=== PATIENT | female | born 1960 | race Caucasian/White ===

== ENCOUNTER 2020-06-01 10:28 | Inpatient (IN) | payer BC ==
[2020-06-01] MEDS ORDERED: SODIUM CHLORIDE 0.9% 500 ML 500 ML IV STA (10:59)
--- NOTE | 2020-06-01 11:10 | ED ---
General Adult HPI - General Source: patient, RN notes reviewed, old records reviewed Limitations: no limitations <Asha Whartonily - Last Filed: 06/01/20 13:54> <Yaquelin Maldonado - Last Filed: 06/03/20 15:01> - General Chief complaint: Upper Respiratory Infection Stated complaint: SOB Time Seen by Provider: 06/01/20 10:42 - History of Present Illness Initial comments: Patient [id number] female with history of smoking quit one year ago presents with months of progressive dyspnea on exertion. Patient reports that she has pain with coughing. She was reviewed by her PCP and encouraged her to come to the ER yesterday but she was not able to make it yesterday. Patient states that she has noticed progressive dyspnea worsening. She is complaining of some epigastric and upper abdominal pains as well. She reports that her cough is productive. She has history of COPD, and sees Dr. Low. (Christine Wharton) - Related Data Home Medications Medication Instructions Recorded Confirmed Albuterol Inhaler [Ventolin Hfa 2 puff INHALATION RT-Q4H PRN 06/01/20 06/01/20 Inhaler] Ipratropium-Albuterol Nebulize 3 ml INHALATION RT-QID 06/01/20 06/01/20 [Duoneb 0.5 mg-3 mg/3 ml Soln] Previous Rx's Medication Instructions Recorded Cefuroxime Axetil [Ceftin] 500 mg PO BID 7 Days #14 tab 06/02/20 predniSONE 10 mg PO DIRECTED 12 Days #30 06/02/20 tab Allergies Allergy/AdvReac Type Severity Reaction Status Date / Time No Known Allergies Allergy Verified 06/01/20 12:56 Review of Systems ROS Other: All systems not noted in ROS Statement are negative. <Christine Wharton - Last Filed: 06/01/20 13:54> ROS Other: All systems not noted in ROS Statement are negative. <Yaquelin Maldonado - Last Filed: 06/03/20 15:01> ROS Statement: Those systems with pertinent positive or pertinent negative responses have been documented in the HPI. Past Medical History Past Medical History: COPD Additional Past Medical History / Comment(s): sinus polyp History of Any Multi-Drug Resistant Organisms: None Reported Additional Past Surgical History / Comment(s): dermabrasion cheek, sinus polyp removal Past Anesthesia/Blood Transfusion Reactions: No Reported Reaction Past Psychological History: No Psychological Hx Reported Smoking Status: Former smoker Past Alcohol Use History: None Reported Past Drug Use History: None Reported <Christine Wharton - Last Filed: 06/01/20 13:54> General Exam Limitations: no limitations General appearance: alert, in no apparent distress Head exam: Present: atraumatic, normocephalic, normal inspection Eye exam: Present: normal appearance, PERRL, EOMI. Absent: scleral icterus, conjunctival injection, periorbital swelling ENT exam: Present: normal exam, mucous membranes moist Neck exam: Present: normal inspection. Absent: tenderness, meningismus, lymphadenopathy Respiratory exam: Present: wheezes, rhonchi, decreased breath sounds. Absent: normal lung sounds bilaterally, respiratory distress, rales, stridor Cardiovascular Exam: Present: regular rate, normal rhythm, normal heart sounds. Absent: systolic murmur, diastolic murmur, rubs, gallop, clicks GI/Abdominal exam: Present: soft, normal bowel sounds. Absent: distended, tenderness, guarding, rebound, rigid Extremities exam: Present: normal inspection, full ROM, normal capillary refill. Absent: tenderness, pedal edema, joint swelling, calf tenderness Back exam: Present: normal inspection Neurological exam: Present: alert, oriented X3, CN II-XII intact Psychiatric exam: Present: normal affect, normal mood Skin exam: Present: warm, dry, intact, normal color. Absent: rash <Christine Wharton - Last Filed: 06/01/20 13:54> - General Exam Comments Initial Comments: 59-year-old female. Alert and oriented. No distress. (Christine Wharton) Course <Christine Wharton - Last Filed: 06/01/20 13:54> Vital Signs 06/01/20 06/01/20 06/01/20 10:37 13:25 13:38 Temperature 98.3 F Pulse Rate 109 H 78 76 Respiratory 18 Rate Blood Pressure 143/79 O2 Sat by Pulse 88 L Oximetry 06/01/20 06/01/20 06/01/20 14:35 14:39 14:57 Temperature 99.0 F Pulse Rate 99 96 97 Respiratory 18 Rate Blood Pressure 129/81 O2 Sat by Pulse 94 L Oximetry - Reevaluation(s) Reevaluation #1: 06/01/20 13:57 Is reevaluated after a double DuoNeb treatment and oxygen was removed. She was satting 86% on room air, tripoding position. Patient was resumed on 3 L of oxygen. She will have Third breathing treatment (Christine Wharton) Medical Decision Making - Lab Data Result diagrams: 06/01/20 11:36 06/01/20 11:36 - Radiology Data Radiology results: report reviewed <Christine Wharton - Last Filed: 06/01/20 13:54> - Lab Data Result diagrams: 06/01/20 11:36 06/01/20 11:36 <Yaquelin Maldonado - Last Filed: 06/03/20 15:01> - Medical Decision Making This 59-year-old female history of COPD presents with progressive shortness of breath back pain with coughing for the past month. Patient's d-dimer and troponin are negative. EKG showed no acute changes. Patient chest x-ray was clear. She does have significant wheezing diminished lung sounds bilaterally. Patient was placed on supplement oxygen was low oxygen saturation 86-89% on room air. She was given 3 breathing treatments with some improvement however still is requiring supplement oxygen. Covid testing is negative. Patient was given Rocephin and Solu-Medrol for elevated white blood cell count for tracheal orchitis and COPD exacerbation. Patient will be admitted with consult to pulmonology. Discussed the case with Dr. Maldonado. (Christine Wharton) I was available for consultation in the emergency department. The history and physical exam were done by the midlevel provider. I was consulted for this patients care. I reviewed the case with the midlevel provider and based on their presentation of the patient, I agree with the assessment, medical decision making and plan of care as documented. Chart was dictated using [employer] dictation software. Attempts were made to correct any dictation errors however some typographical errors may persist. Patient was seen during a national state of emergency due to the Covid-19 pandemic. (Yaquelin Maldonado) - Lab Data Lab Results 06/01/20 06/01/20 06/01/20 Range/Units 11:36 11:36 11:36 WBC 15.9 H (3.8-10.6) k/uL RBC 5.41 H (3.80-5.40) m/uL Hgb 14.3 (11.4-16.0) gm/dL Hct 44.5 (34.0-46.0) % MCV 82.3 (80.0-100.0) fL MCH 26.3 (25.0-35.0) pg MCHC 32.0 (31.0-37.0) g/dL RDW 14.3 (11.5-15.5) % Plt Count 304 (150-450) k/uL MPV 7.0 Neutrophils % 85 % Lymphocytes % 10 % Monocytes % 4 % Eosinophils % 1 % Basophils % 0 % Neutrophils # 13.4 H (1.3-7.7) k/uL Lymphocytes # 1.6 (1.0-4.8) k/uL Monocytes # 0.6 (0-1.0) k/uL Eosinophils # 0.1 (0-0.7) k/uL Basophils # 0.0 (0-0.2) k/uL PT 9.7 (9.0-12.0) sec INR 0.9 (<1.2) APTT 20.9 L (22.0-30.0) sec D-Dimer 0.28 (<0.60) mg/L FEU Sodium 134 L (137-145) mmol/L Potassium 4.0 (3.5-5.1) mmol/L Chloride 97 L (98-107) mmol/L Carbon Dioxide 34 H (22-30) mmol/L Anion Gap 3 mmol/L BUN 17 (7-17) mg/dL Creatinine 0.52 (0.52-1.04) mg/dL Est GFR (CKD-EPI)AfAm >90 (>60 ml/min/1.73 sqM) Est GFR (CKD-EPI)NonAf >90 (>60 ml/min/1.73 sqM) Glucose 124 H (74-99) mg/dL Plasma Lactic Acid Ang (0.7-2.0) mmol/L Calcium 8.9 (8.4-10.2) mg/dL Magnesium 2.1 (1.6-2.3) mg/dL Total Bilirubin 0.4 (0.2-1.3) mg/dL AST 38 H (14-36) U/L ALT 59 H (4-34) U/L Alkaline Phosphatase 63 (38-126) U/L Troponin I (0.000-0.034) ng/mL NT-Pro-B Natriuret Pep pg/mL Total Protein 6.0 L (6.3-8.2) g/dL Albumin 3.7 (3.5-5.0) g/dL Procalcitonin (0.02-0.09) ng/mL Coronavirus (PCR) (Not Detectd) 06/01/20 06/01/20 06/01/20 Range/Units 11:36 11:36 11:36 WBC (3.8-10.6) k/uL RBC (3.80-5.40) m/uL Hgb (11.4-16.0) gm/dL Hct (34.0-46.0) % MCV (80.0-100.0) fL MCH (25.0-35.0) pg MCHC (31.0-37.0) g/dL RDW (11.5-15.5) % Plt Count (150-450) k/uL MPV Neutrophils % % Lymphocytes % % Monocytes % % Eosinophils % % Basophils % % Neutrophils # (1.3-7.7) k/uL Lymphocytes # (1.0-4.8) k/uL Monocytes # (0-1.0) k/uL Eosinophils # (0-0.7) k/uL Basophils # (0-0.2) k/uL PT (9.0-12.0) sec INR (<1.2) APTT (22.0-30.0) sec D-Dimer (<0.60) mg/L FEU Sodium (137-145) mmol/L Potassium (3.5-5.1) mmol/L Chloride (98-107) mmol/L Carbon Dioxide (22-30) mmol/L Anion Gap mmol/L BUN (7-17) mg/dL Creatinine (0.52-1.04) mg/dL Est GFR (CKD-EPI)AfAm (>60 ml/min/1.73 sqM) Est GFR (CKD-EPI)NonAf (>60 ml/min/1.73 sqM) Glucose (74-99) mg/dL Plasma Lactic Acid Ang 0.9 (0.7-2.0) mmol/L Calcium (8.4-10.2) mg/dL Magnesium (1.6-2.3) mg/dL Total Bilirubin (0.2-1.3) mg/dL AST (14-36) U/L ALT (4-34) U/L Alkaline Phosphatase (38-126) U/L Troponin I <0.012 (0.000-0.034) ng/mL NT-Pro-B Natriuret Pep 150 pg/mL Total Protein (6.3-8.2) g/dL Albumin (3.5-5.0) g/dL Procalcitonin (0.02-0.09) ng/mL Coronavirus (PCR) (Not Detectd) 06/01/20 06/01/20 Range/Units 11:36 11:36 WBC (3.8-10.6) k/uL RBC (3.80-5.40) m/uL Hgb (11.4-16.0) gm/dL Hct (34.0-46.0) % MCV (80.0-100.0) fL MCH (25.0-35.0) pg MCHC (31.0-37.0) g/dL RDW (11.5-15.5) % Plt Count (150-450) k/uL MPV Neutrophils % % Lymphocytes % % Monocytes % % Eosinophils % % Basophils % % Neutrophils # (1.3-7.7) k/uL Lymphocytes # (1.0-4.8) k/uL Monocytes # (0-1.0) k/uL Eosinophils # (0-0.7) k/uL Basophils # (0-0.2) k/uL PT (9.0-12.0) sec INR (<1.2) APTT (22.0-30.0) sec D-Dimer (<0.60) mg/L FEU Sodium (137-145) mmol/L Potassium (3.5-5.1) mmol/L Chloride (98-107) mmol/L Carbon Dioxide (22-30) mmol/L Anion Gap mmol/L BUN (7-17) mg/dL Creatinine (0.52-1.04) mg/dL Est GFR (CKD-EPI)AfAm (>60 ml/min/1.73 sqM) Est GFR (CKD-EPI)NonAf (>60 ml/min/1.73 sqM) Glucose (74-99) mg/dL Plasma Lactic Acid Ang (0.7-2.0) mmol/L Calcium (8.4-10.2) mg/dL Magnesium (1.6-2.3) mg/dL Total Bilirubin (0.2-1.3) mg/dL AST (14-36) U/L ALT (4-34) U/L Alkaline Phosphatase (38-126) U/L Troponin I (0.000-0.034) ng/mL NT-Pro-B Natriuret Pep pg/mL Total Protein (6.3-8.2) g/dL Albumin (3.5-5.0) g/dL Procalcitonin 0.03 (0.02-0.09) ng/mL Coronavirus (PCR) Not Detected (Not Detectd) 06/01/20 12:50 EKG shows normal sinus rhythm with possible left atrial enlargement. Incomplete right bundle branch block. Borderline EKG. Ventricular rate of 72 bpm. MA interval is most seconds. QRS duration is 96 ms. QT QTc is 386/422 ms. (Christine Juarez) - Radiology Data His x-rays negative for any acute cardio pulmonary disease. (Christine Wharton) Disposition Is patient prescribed a controlled substance at d/c from ED?: No Time of Disposition: 14:00 <Christine Wharton - Last Filed: 06/01/20 13:54> <Yaquelin Maldonado - Last Filed: 06/03/20 15:01> Clinical Impression: COPD exacerbation Disposition: ADMITTED IP TO THIS HOSP Condition: Good
[2020-06-01] MEDS: SODIUM CHLORIDE 0.9% 1,000 ML IV STA ×2 (11:39→14:48)
[2020-06-01 11:49] LABS: Basophils % (A) 0 %; Eosinophils # (A) 0.1 k/uL (0-0.7); Eosinophils % (A) 1 %; HCT 44.5 % (34.0-46.0); HGB 14.3 gm/dL (11.4-16.0); Lymphocytes # (A) 1.6 k/uL (1.0-4.8); Lymphocytes % (A) 10 %; MCH 26.3 pg (25.0-35.0); MCV 82.3 fL (80.0-100.0); Monocytes # (A) 0.6 k/uL (0-1.0); Monocytes % (A) 4 %; Neutrophils # (A) 13.4 k/uL (1.3-7.7); Neutrophils % (A) 85 %; Platelet Count 304 k/uL (150-450); RBC 5.41 m/uL (3.80-5.40); RDW 14.3 % (11.5-15.5); WBC 15.9 k/uL (3.8-10.6)
--- NOTE | 2020-06-01 11:56 | XR ---
EXAMINATION TYPE: XR chest 2V DATE OF EXAM: 06/01/2020 COMPARISON: 07/14/2018 HISTORY: Shortness of breath TECHNIQUE: Frontal and lateral views of the chest are obtained. FINDINGS: Scattered senescent parenchymal changes noted. Hyperinflation compatible with COPD. No evidence for infiltrate. No evidence for atelectasis. Heart size is stable. Granuloma left upper lobe is stable. Mediastinal structures are stable and grossly unremarkable. No evidence for hilar prominence. Degenerative changes dorsal spine. IMPRESSION: 1. No evidence for acute pulmonary disease.
[2020-06-01 12:12] LABS: ALT 59 U/L (4-34); AST 38 U/L (14-36); African American GFR (CKD) >90 (>60 ml/min/1.73 sqM); Albumin 3.7 g/dL (3.5-5.0); Alkaline Phosphatase 63 U/L (38-126); Anion Gap 3 mmol/L; Blood Urea Nitrogen 17 mg/dL (7-17); Calcium 8.9 mg/dL (8.4-10.2); Carbon Dioxide 34 mmol/L (22-30); Chloride 97 mmol/L (98-107); Glucose 124 mg/dL (74-99); Magnesium 2.1 mg/dL (1.6-2.3); Non-African American GFR(CKD) >90 (>60 ml/min/1.73 sqM); Sodium 134 mmol/L (137-145); Total Bilirubin 0.4 mg/dL (0.2-1.3)
[2020-06-01 12:13] LABS: D-Dimer 0.28 mg/L FEU (<0.60); INR 0.9 (<1.2); Partial Thromboplastin Time 20.9 sec (22.0-30.0); Prothrombin Time 9.7 sec (9.0-12.0)
[2020-06-01] MEDS ORDERED: methylPREDNISolone SOD SUCCI 125 MG/2 ML VIAL IV STA (12:19)
[2020-06-01] MEDS ORDERED: IPRATROPIUM-ALBUTEROL 3 ML NEB INHALATION STA ×2 (12:19→13:53)
[2020-06-01] MEDS ORDERED: cefTRIAXone IN SWFI 1,000 MG/10 ML SYRINGE IVP STA (13:53)
[2020-06-01] MEDS ORDERED: IPRATROPIUM-ALBUTEROL 3 ML NEB INHALATION PRN (14:00)
[2020-06-01] MEDS: IPRATROPIUM-ALBUTEROL 3 ML NEB INHALATION SCH ×2 (15:43→19:47)
--- NOTE | 2020-06-01 15:46 | P.CNPUL ---
History of Present Illness Consult date: 06/01/20 Reason for consult: dyspnea, COPD History of present illness: 59-year-old female patient with known history of COPD whereas been followed up in our office for the same. The patient is presenting with worsening shortness of breath and exertional dyspnea. No angina. She was having some cough. Unable to bring up any sputum. No exposure to Covid 19. Covid 19 evaluation came back negative in the emergency department. Chest x-ray showed hy perinflation without any airspace disease or consolidation. Currently she is on 2 L of oxygen by nasal cannula with a pulse ox of 90%. Her white cell count of 15.9 with hemoglobin of 14, electrolytes are normal, d-dimer was normal, renal function was normal, mild elevation of the AST and ALT levels are 38 and 59 respectively. Troponins are negative. No swelling lower extremities. First hospitalization for COPD exacerbation she does use home oxygen. She does not have any other maintenance inhalers. She has used prednisone on and off for occasional flareups and she has 20 mg of 5 mg tablets at home and she does them as needed. She takes prednisone approximately 3 out of 7 days in a week. Review of Systems Constitutional: Reports fatigue, Reports weakness Eyes: denies as per HPI, denies blurred vision, denies bulging eye, denies decreased vision, denies diplopia, denies discharge, denies dry eye, denies irritation, denies itching, denies pain, denies photophobia, denies loss of peripheral vision, denies loss of vision, denies tunnel vision/blind spots Ears: deny: decreased hearing, ear discharge, earache, tinnitus Ears, nose, mouth and throat: Reports as per HPI Breasts: absent: as per HPI, change in shape, gynecomastia, masses, nipple discharge, pain, skin changes, swelling Cardiovascular: Reports decreased exercise tolerance, Reports dyspnea on exertion Respiratory: Reports cough, Reports dyspnea Gastrointestinal: Reports as per HPI Genitourinary: Reports as per HPI Menstruation: Reports as per HPI Musculoskeletal: Reports fractures Musculoskeletal: absent: ankle pain, ankle stiffness, ankle swelling, as per HPI, elbow pain, elbow stiffness, elbow swelling, foot pain, foot stiffness, foot swelling, hand pain, hand stiffness, hand swelling, hip pain, hip stiffness, hip swelling, knee pain, knee stiffness, knee swelling, shoulder pain, shoulder stiffness, shoulder swelling, wrist pain, wrist stiffness, wrist swelling Integumentary: Reports as per HPI Neurological: Reports as per HPI Psychiatric: Reports as per HPI Endocrine: Reports as per HPI Hematologic/Lymphatic: Reports as per HPI Allergic/Immunologic: Reports as per HPI Past Medical History Past Medical History: COPD Additional Past Medical History / Comment(s): sinus polyp History of Any Multi-Drug Resistant Organisms: None Reported Additional Past Surgical History / Comment(s): dermabrasion cheek, sinus polyp removal Past Anesthesia/Blood Transfusion Reactions: No Reported Reaction Past Psychological History: No Psychological Hx Reported Smoking Status: Former smoker Past Alcohol Use History: None Reported Past Drug Use History: None Reported Medications and Allergies Home Medications Medication Instructions Recorded Confirmed Type Albuterol Inhaler [Ventolin Hfa 2 puff INHALATION RT-Q4H PRN 06/01/20 06/01/20 History Inhaler] Ipratropium-Albuterol Nebulize 3 ml INHALATION RT-QID 06/01/20 06/01/20 History [Duoneb 0.5 mg-3 mg/3 ml Soln] predniSONE 5 mg PO DIRECTED 06/01/20 06/01/20 History predniSONE [Deltasone] 20 mg PO DIRECTED 06/01/20 06/01/20 History Allergies Allergy/AdvReac Type Severity Reaction Status Date / Time No Known Allergies Allergy Verified 06/01/20 12:56 Physical Exam Vitals: Vital Signs Temp Pulse Resp BP Pulse Ox 06/01/20 14:57 97 06/01/20 14:39 96 06/01/20 14:35 99.0 F 99 18 129/81 94 L 06/01/20 13:38 76 06/01/20 13:25 78 06/01/20 10:37 98.3 F 109 H 18 143/79 88 L Intake and Output 06/01/20 06/01/20 06/01/20 06:59 14:59 22:59 Other: Weight 56.699 kg General appearance: alert, in no apparent distress Head exam: Present: atraumatic, normocephalic, normal inspection Eye exam: Present: normal appearance, PERRL, EOMI. Absent: scleral icterus, conjunctival injection, periorbital swelling ENT exam: Present: normal exam, mucous membranes moist Neck exam: Present: normal inspection. Absent: tenderness, meningismus, lymphadenopathy Respiratory exam: Diminished breath sounds along with prolongation of a exhalation phase of breathing and diffuse expiratory wheezes heard throughout the lung staples bilaterally. Cardiovascular Exam: Present: regular rate, normal rhythm, normal heart sounds. Absent: systolic murmur, diastolic murmur, rubs, gallop, clicks GI/Abdominal exam: Present: soft, normal bowel sounds. Absent: distended, tenderness, guarding, rebound, rigid Extremities exam: Present: normal inspection, full ROM, normal capillary refill. Absent: tenderness, pedal edema, joint swelling, calf tenderness Back exam: Present: normal inspection Neurological exam: Present: alert, oriented X3, CN II-XII intact Psychiatric exam: Present: normal affect, normal mood Skin exam: Present: warm, dry, intact, normal color. Absent: rash Results - Laboratory Findings CBC and BMP: 06/01/20 11:36 06/01/20 11:36 PT/INR, D-dimer PT 9.7 sec (9.0-12.0) 06/01/20 11:36 INR 0.9 (<1.2) 06/01/20 11:36 D-Dimer 0.28 mg/L FEU (<0.60) 06/01/20 11:36 Abnormal lab findings: Abnormal Labs 06/01/20 06/01/20 06/01/20 11:36 11:36 11:36 WBC 15.9 H RBC 5.41 H Neutrophils # 13.4 H APTT 20.9 L Sodium 134 L Chloride 97 L Carbon Dioxide 34 H Glucose 124 H AST 38 H ALT 59 H Total Protein 6.0 L - Diagnostic Findings Chest x-ray: image reviewed Assessment and Plan Plan: 1 acute COPD exacerbation with secondary shortness of breath. Chest x-ray study of any acute pulmonary infiltrates. 2 acute hypoxic respiratory failure secondary to above 3 history of smoking quit smoking back in June 2019 Plan Start the patient on DuoNeb nebulized treatment 4 times a day [id number] Check pro calcitonin level Add IV Solu Medrol 60 mg every 6 hours Heparin subcu for DVT prophylaxis Will need further education regarding COPD management and care. We'll obviously need a maintenance inhaler and this will largely depend on her symptoms and her extent of impairment in her pulmonary function tests. Starting the patient on a combination of LABA/LAMA is very reasonable and this will be started at the time of discharge. Recommendations are Anoro one inhalation a day. We'll continue to follow. Covid 19 testing was negative.
[2020-06-01] MEDS: HEPARIN SODIUM,PORCINE 5,000 UNIT/ML 1 ML VIAL SQ SCH (16:25)
[2020-06-01] MEDS: INSULIN ASPART (NovoLOG) 100 UNIT/ML VIAL SQ SCH ×2 (18:08→21:55)
[2020-06-01] MEDS: methylPREDNISolone SOD SUCCI 125 MG/2 ML VIAL IV SCH (18:09)
[2020-06-01 18:47] VITALS: RESP 16
[2020-06-01] MEDS: FORMOTEROL FUMARATE 20 MCG/2 ML NEBU INHALATION SCH (19:47)
[2020-06-01] MEDS: BUDESONIDE 0.5 MG/2 ML NEBU INHALATION SCH (19:47)
[2020-06-01 21:45] LABS: Glucose,Whole Blood 178 mg/dL (75-99)
[2020-06-01] MEDS: guaiFENesin 600 MG TABLET.ER PO SCH (21:55)
[2020-06-02] MEDS: methylPREDNISolone SOD SUCCI 125 MG/2 ML VIAL IV SCH ×3 (01:31→11:44)
[2020-06-02] MEDS: HEPARIN SODIUM,PORCINE 5,000 UNIT/ML 1 ML VIAL SQ SCH ×2 (01:32→08:08)
[2020-06-02 03:18] VITALS: TEMP 97.8
[2020-06-02 07:19] LABS: Glucose,Whole Blood 129 mg/dL (75-99)
[2020-06-02] MEDS: IPRATROPIUM-ALBUTEROL 3 ML NEB INHALATION SCH ×2 (07:19→11:41)
[2020-06-02] MEDS: FORMOTEROL FUMARATE 20 MCG/2 ML NEBU INHALATION SCH (07:20)
[2020-06-02] MEDS: BUDESONIDE 0.5 MG/2 ML NEBU INHALATION SCH (07:20)
[2020-06-02] MEDS: INSULIN ASPART (NovoLOG) 100 UNIT/ML VIAL SQ SCH ×2 (07:59→11:44)
[2020-06-02] MEDS: guaiFENesin 600 MG TABLET.ER PO SCH (08:05)
[2020-06-02] MEDS ORDERED: ALPRAZolam 0.25 MG TAB PO PRN (08:10)
[2020-06-02 09:05] VITALS: BP 114/64
--- NOTE | 2020-06-02 09:24 | P.HPIM ---
History of Present Illness H&P Date: 06/01/20 , Spring Burdick, is a 59-year-old female patient of Dr. Gibbs, who presented to [facility] emergency room with a chief complaint of worsening shortness of breath, patient was evaluated as outpatient by Dr. Gibbs and was told to go to emergency room. Patient was evaluated in the emergency room vital examination on presentation revealed a temperature of 98.3 S1 09 respiration 18 blood pressure 143/79 pulse ox 88% on room air her white blood count was 15.9 hemoglobin 14.3 platelet count 304 d-dimer 0.28 sodium 134 potassium 4.0 chloride 97 CO2 34 BUN 17 creatinine 0.5 to AST and ALT were slightly elevated at 38 and 59 Valdovinos virus PCR was negative patient had a chest x-ray in the emergency room that showed no evidence for acute pulmonary disease EKG revealed normal sinus rhythm with incomplete right bundle branch block she was admitted to telemetry floor preliminary diagnosis in the emergency room was acute bronchitis with acute exacerbation of chronic obstructive pulmonary disease she was started on IV antibiotics and IV Solu-Medrol pulmonary consultation was requested patient is well known to Dr. Low Past Medical History Past Medical History: COPD Additional Past Medical History / Comment(s): sinus polyp History of Any Multi-Drug Resistant Organisms: None Reported Additional Past Surgical History / Comment(s): dermabrasion cheek, sinus polyp removal Past Anesthesia/Blood Transfusion Reactions: No Reported Reaction Past Psychological History: No Psychological Hx Reported Smoking Status: Former smoker Past Alcohol Use History: None Reported Past Drug Use History: None Reported - Past Family History Mother Family Medical History: COPD Father Family Medical History: Myocardial Infarction ([place]) Medications and Allergies Home Medications Medication Instructions Recorded Confirmed Type Albuterol Inhaler [Ventolin Hfa 2 puff INHALATION RT-Q4H PRN 06/01/20 06/01/20 History Inhaler] Ipratropium-Albuterol Nebulize 3 ml INHALATION RT-QID 06/01/20 06/01/20 History [Duoneb 0.5 mg-3 mg/3 ml Soln] predniSONE 5 mg PO DIRECTED 06/01/20 06/01/20 History predniSONE [Deltasone] 20 mg PO DIRECTED 06/01/20 06/01/20 History Allergies Allergy/AdvReac Type Severity Reaction Status Date / Time No Known Allergies Allergy Verified 06/01/20 12:56 Physical Exam Vitals: Vital Signs Temp Pulse Resp BP Pulse Ox 06/01/20 14:57 97 06/01/20 14:39 96 06/01/20 14:35 99.0 F 99 18 129/81 94 L 06/01/20 13:38 76 06/01/20 13:25 78 06/01/20 10:37 98.3 F 109 H 18 143/79 88 L Intake and Output 06/01/20 06/01/20 06/01/20 06:59 14:59 22:59 Other: Weight 56.699 kg In general patient is alert and oriented 3 in no apparent distress HEENT head normocephalic and atraumatic Neck is supple no JVD no goiter no lymphadenopathy Chest exam reveals a few scattered crackles no wheezing Cardiac exam reveals regular heart sounds S1 and S2 no gallops no murmurs Abdomen is soft nontender no organomegaly with normal bowel sounds Extremity exam reveals no edema no cyanosis or clubbing Neurological examination reveals no gross focal deficits Results CBC & Chem 7: 06/01/20 11:36 06/01/20 11:36 Labs: Abnormal Lab Results - Last 24 Hours (Table) 06/01/20 06/01/20 06/01/20 Range/Units 11:36 11:36 11:36 WBC 15.9 H (3.8-10.6) k/uL RBC 5.41 H (3.80-5.40) m/uL Neutrophils # 13.4 H (1.3-7.7) k/uL APTT 20.9 L (22.0-30.0) sec Sodium 134 L (137-145) mmol/L Chloride 97 L (98-107) mmol/L Carbon Dioxide 34 H (22-30) mmol/L Glucose 124 H (74-99) mg/dL AST 38 H (14-36) U/L ALT 59 H (4-34) U/L Total Protein 6.0 L (6.3-8.2) g/dL Assessment and Plan Plan: Acute purulent bronchitis Acute exacerbation of chronic obstructive pulmonary disease Previous history of smoking patient stated that she quit 1 year ago At this time patient was started on IV Solu-Medrol and inhaled bronchodilators For DVT prophylaxis subcu heparin Pulmonary consultation was requested Will follow closely
--- NOTE | 2020-06-02 09:26 | P.PN ---
Subjective Progress Note Date: 06/02/20 Spring Burdick, is a 59-year-old female patient of Dr. Gibbs, who presented to [facility] emergency room with a chief complaint of worsening shortness of breath, patient was evaluated as outpatient by Dr. Gibbs and was told to go to emergency room. Patient was evaluated in the emergency room vital examination on presentation revealed a temperature of 98.3 S1 09 respiration 18 blood pressure 143/79 pulse ox 88% on room air her white blood count was 15.9 hemoglobin 14.3 platelet count 304 d-dimer 0.28 sodium 134 potassium 4.0 chloride 97 CO2 34 BUN 17 creatinine 0.5 to AST and ALT were slightly elevated at 38 and 59 Valdovinos virus PCR was negative patient had a chest x-ray in the emergency room that showed no evidence for acute pulmonary disease EKG revealed normal sinus rhythm with incomplete right bundle branch block she was admitted to telemetry floor preliminary diagnosis in the emergency room was acute bronchitis with acute exacerbation of chronic obstructive pulmonary disease she was started on IV antibiotics and IV Solu-Medrol pulmonary consultation was requested patient is well known to Dr. Low On 06/02 2020 patient was seen and examined on the medical floor she is alert and oriented 3 in no apparent distress she seems anxious she stated that her shortness of breath and cough are improving otherwise she denies any complaints there is no fever or chills no headache or dizziness no chest pain no nausea or vomiting no abdominal pain no diarrhea no blood in the stools no burning with urination no frequency or urgency and no hematuria Objective - Vital Signs Vital signs: Vital Signs Temp 97.8 F 06/02/20 09:04 Pulse 92 06/02/20 09:04 Resp 16 06/02/20 09:04 BP 114/64 06/02/20 09:04 Pulse Ox 93 L 06/02/20 09:04 Intake & Output 06/01/20 06/02/20 06/02/20 18:59 06:59 18:59 Weight 56.699 kg Other: Voiding Method Toilet - Exam In general patient is alert and oriented 3 in no apparent distress HEENT head normocephalic and atraumatic Neck is supple no JVD no goiter no lymphadenopathy Chest exam reveals a few scattered crackles no wheezing Cardiac exam reveals regular heart sounds S1 and S2 no gallops no murmurs Abdomen is soft nontender no organomegaly with normal bowel sounds Extremity exam reveals no edema no cyanosis or clubbing Neurological examination reveals no gross focal deficits - Labs CBC & Chem 7: 06/01/20 11:36 06/01/20 11:36 Labs: Abnormal Lab Results - Last 24 Hours (Table) 06/01/20 06/01/20 06/01/20 Range/Units 11:36 11:36 11:36 WBC 15.9 H (3.8-10.6) k/uL RBC 5.41 H (3.80-5.40) m/uL Neutrophils # 13.4 H (1.3-7.7) k/uL APTT 20.9 L (22.0-30.0) sec Sodium 134 L (137-145) mmol/L Chloride 97 L (98-107) mmol/L Carbon Dioxide 34 H (22-30) mmol/L Glucose 124 H (74-99) mg/dL POC Glucose (mg/dL) (75-99) mg/dL AST 38 H (14-36) U/L ALT 59 H (4-34) U/L Total Protein 6.0 L (6.3-8.2) g/dL 06/01/20 06/02/20 Range/Units 21:42 07:16 WBC (3.8-10.6) k/uL RBC (3.80-5.40) m/uL Neutrophils # (1.3-7.7) k/uL APTT (22.0-30.0) sec Sodium (137-145) mmol/L Chloride (98-107) mmol/L Carbon Dioxide (22-30) mmol/L Glucose (74-99) mg/dL POC Glucose (mg/dL) 178 H 129 H (75-99) mg/dL AST (14-36) U/L ALT (4-34) U/L Total Protein (6.3-8.2) g/dL Assessment and Plan Plan: Acute purulent bronchitis Acute exacerbation of chronic obstructive pulmonary disease Previous history of smoking patient stated that she quit 1 year ago Anxiety will start Xanax 0.25 mg 4 times daily as needed At this time patient was started on IV Solu-Medrol and inhaled bronchodilators For DVT prophylaxis subcu heparin Pulmonary consultation was requested Will follow closely
--- NOTE | 2020-06-02 11:27 | P.PN ---
Subjective Progress Note Date: 06/02/20 59-year-old female patient with known history of COPD whereas been followed up in our office for the same. The patient is presenting with worsening shortness of breath and exertional dyspnea. No angina. She was having some cough. Unable to bring up any sputum. No exposure to Covid 19. Covid 19 evaluation came back negative in the emergency department. Chest x-ray showed hyperinflation without any airspace disease or consolidation. Currently she is on 2 L of oxygen by nasal cannula with a pulse ox of 90%. Her white cell count of 15.9 with hemoglobin of 14, electrolytes are normal, d-dimer was normal, renal function was normal, mild elevation of the AST and ALT levels are 38 and 59 respectively. Troponins are negative. No swelling lower extremities. First hospitalization for COPD exacerbation she does use home oxygen. She does not have any other maintenance inhalers. She has used prednisone on and off for occasional flareups and she has 20 mg of 5 mg tablets at home and she does them as needed. She takes prednisone approximately 3 out of 7 days in a week. Today's evaluation 06/02/2020 the patient is feeling better and she feels her breathing status is back to her baseline. She has home oxygen. No chest pain. No swelling lower extremities. No other complaints otherwise pH is back to her baseline for now. Objective - Vital Signs Vital signs: Vital Signs Temp 97.8 F 06/02/20 09:04 Pulse 92 06/02/20 09:04 Resp 16 06/02/20 09:04 BP 114/64 06/02/20 09:04 Pulse Ox 93 L 06/02/20 09:04 Intake & Output 06/01/20 06/02/20 06/02/20 18:59 06:59 18:59 Weight 56.699 kg Other: Voiding Method Toilet - Exam General appearance: alert, in no apparent distress Head exam: Present: atraumatic, normocephalic, normal inspection Eye exam: Present: normal appearance, PERRL, EOMI. Absent: scleral icterus, conjunctival injection, periorbital swelling ENT exam: Present: normal exam, mucous membranes moist Neck exam: Present: normal inspection. Absent: tenderness, meningismus, lymphadenopathy Respiratory exam: Diminished breath sounds along with prolongation of a exhalation phase of breathing and diffuse expiratory wheezes heard throughout the lung staples bilaterally. Cardiovascular Exam: Present: regular rate, normal rhythm, normal heart sounds. Absent: systolic murmur, diastolic murmur, rubs, gallop, clicks GI/Abdominal exam: Present: soft, normal bowel sounds. Absent: distended, tenderness, guarding, rebound, rigid Extremities exam: Present: normal inspection, full ROM, normal capillary refill. Absent: tenderness, pedal edema, joint swelling, calf tenderness Back exam: Present: normal inspection Neurological exam: Present: alert, oriented X3, CN II-XII intact Psychiatric exam: Present: normal affect, normal mood Skin exam: Present: warm, dry, intact, normal color. Absent: rash - Labs CBC & Chem 7: 06/01/20 11:36 06/01/20 11:36 Labs: Abnormal Lab Results - Last 24 Hours (Table) 06/01/20 06/01/20 06/01/20 Range/Units 11:36 11:36 11:36 WBC 15.9 H (3.8-10.6) k/uL RBC 5.41 H (3.80-5.40) m/uL Neutrophils # 13.4 H (1.3-7.7) k/uL APTT 20.9 L (22.0-30.0) sec Sodium 134 L (137-145) mmol/L Chloride 97 L (98-107) mmol/L Carbon Dioxide 34 H (22-30) mmol/L Glucose 124 H (74-99) mg/dL POC Glucose (mg/dL) (75-99) mg/dL AST 38 H (14-36) U/L ALT 59 H (4-34) U/L Total Protein 6.0 L (6.3-8.2) g/dL 06/01/20 06/02/20 Range/Units 21:42 07:16 WBC (3.8-10.6) k/uL RBC (3.80-5.40) m/uL Neutrophils # (1.3-7.7) k/uL APTT (22.0-30.0) sec Sodium (137-145) mmol/L Chloride (98-107) mmol/L Carbon Dioxide (22-30) mmol/L Glucose (74-99) mg/dL POC Glucose (mg/dL) 178 H 129 H (75-99) mg/dL AST (14-36) U/L ALT (4-34) U/L Total Protein (6.3-8.2) g/dL Assessment and Plan Plan: 1 acute COPD exacerbation with secondary shortness of breath. Chest x-ray study of any acute pulmonary infiltrates. 2 acute hypoxic respiratory failure secondary to above 3 history of smoking quit smoking back in June 2019 Plan Start the patient on DuoNeb nebulized treatment 4 times a day [id number] July discharge the patient home on a prednisone burst taper I give the patient a prescription for Anoro To one inhalation a day Outpatient follow-up with Dr. Low regarding her COPD Clear for discharge from pulmonary. She has home O2.
[2020-06-02 11:45] LABS: Glucose,Whole Blood 136 mg/dL (75-99)
--- NOTE | 2020-06-02 11:51 | P.DS ---
Providers Date of admission: 06/01/20 14:14 Expected date of discharge: 06/02/20 Attending physician: Nicolas Clark Consults: 06/01/20 14:00 Consult Physician Stat Consulting Provider: Dani Low Consult Reason/Comments: COPD exacerabation Do you want consulting provider notified?: Yes Primary care physician: Magalys Gibbs [facility] Course: Discharge diagnosis Acute purulent bronchitis Acute exacerbation of chronic obstructive pulmonary disease Previous history of smoking patient stated that she quit 1 year ago Anxiety will start Xanax 0.25 mg 4 times daily as needed Hospital course Spring Burdick, is a 59-year-old female patient of Dr. Gibbs, who presented to [facility] emergency room with a chief complaint of worsening shortness of breath, patient was evaluated as outpatient by Dr. Gibbs and was told to go to emergency room. Patient was evaluated in the emergency room vital examination on presentation revealed a temperature of 98.3 S1 09 respiration 18 blood pressure 143/79 pulse ox 88% on room air her white blood count was 15.9 hemoglobin 14.3 platelet count 304 d-dimer 0.28 sodium 134 potassium 4.0 chloride 97 CO2 34 BUN 17 creatinine 0.5 to AST and ALT were slightly elevated at 38 and 59 Valdovinos virus PCR was negative patient had a chest x-ray in the emergency room that showed no evidence for acute pulmonary disease EKG revealed normal sinus rhythm with incomplete right bundle branch block she was admitted to telemetry floor preliminary diagnosis in the emergency room was acute bronchitis with acute exacerbation of chronic obstructive pulmonary disease she was started on IV antibiotics and IV Solu-Medrol pulmonary consultation was requested patient is well known to Dr. Low On 06/02 2020 patient was seen and examined on the medical floor she is alert and oriented 3 in no apparent distress she seems anxious she stated that her shortness of breath and cough are improving otherwise she denies any complaints there is no fever or chills no headache or dizziness no chest pain no nausea or vomiting no abdominal pain no diarrhea no blood in the stools no burning with urination no frequency or urgency and no hematuria Patient cleared for discharge from pulmonary standpoint. Patient will be DC'd on prednisone taper and Ceftin. Patient to follow-up with PCP and pulmonary services for further management Patient Condition at Discharge: Good Plan - Discharge Summary Discharge Rx Participant: No New Discharge Prescriptions: New Cefuroxime Axetil [Ceftin] 500 mg PO BID 7 Days #14 tab predniSONE 10 mg PO DIRECTED 12 Days #30 tab Continue Ipratropium-Albuterol Nebulize [Duoneb 0.5 mg-3 mg/3 ml Soln] 3 ml INHALATION RT-QID Albuterol Inhaler [Ventolin Hfa Inhaler] 2 puff INHALATION RT-Q4H PRN PRN Reason: Shortness Of Breath Discontinued predniSONE 5 mg PO DIRECTED predniSONE [Deltasone] 20 mg PO DIRECTED Discharge Medication List Albuterol Inhaler [Ventolin Hfa Inhaler] 2 puff INHALATION RT-Q4H PRN 06/01/20 [History] Ipratropium-Albuterol Nebulize [Duoneb 0.5 mg-3 mg/3 ml Soln] 3 ml INHALATION RT-QID 06/01/20 [History] Cefuroxime Axetil [Ceftin] 500 mg PO BID 7 Days #14 tab 06/02/20 [Rx] predniSONE 10 mg PO DIRECTED 12 Days #30 tab 06/02/20 [Rx] Follow up Appointment(s)/Referral(s): Magalys Gibbs MD [Primary Care Provider] - 1-2 days Dani Low DO [Doctor of Osteopathic Medicine] - 1 Week Patient Instructions/Handouts: COPD (Chronic Obstructive Pulmonary Disease) (ED) Activity/Diet/Wound Care/Special Instructions: gave anoro script and said if insurance covered to fill. One puff daily.
[2020-06-02 11:54] VITALS: PULSE 86
== END 2020-06-02 13:35 | disposition home or self-care (01) | DRG 190 ==
LOC: EC 10:28 → 4SSUR 14:14
PROVIDERS: ADMIT Internal Medicine; ATTEND Internal Medicine
DX: J44.0 Chronic obstructive pulmonary disease with (acute) lower respiratory infection (principal); J96.01 Acute respiratory failure with hypoxia; J44.1 Chronic obstructive pulmonary disease with (acute) exacerbation; I45.10 Unspecified right bundle-branch block; Z20.822 Contact with and (suspected) exposure to COVID-19; J20.9 Acute bronchitis, unspecified; F41.9 Anxiety disorder, unspecified; M54.9 Dorsalgia, unspecified; Z79.52 Long term (current) use of systemic steroids; Z79.899 Other long term (current) drug therapy; Z87.09 Personal history of other diseases of the respiratory system; Z87.891 Personal history of nicotine dependence; Z82.5 Family history of asthma and other chronic lower respiratory diseases; Z82.49 Family history of ischemic heart disease and other diseases of the circulatory system
CPT/HCPCS: 36415; 71046; 80053; 83605; 83735; 83880; 84145; 84484; 85025; 85379; 85610; 85730; 87040; 87635; 93005; 94640; 96361; 96374; 99285

== ENCOUNTER → 2021-01-18 | Outpatient (CLI) | payer BC ==
[2021-01-18 09:32] LABS: ABG HCO3 32 mmol/L (21-25); ABG Oxygen Saturation 86.2 % (94-97); ABG PCO2 50 mmHg (35-45); ABG PH 7.41 (7.35-7.45); ABG TCO2 33 mmol/L (19-24); Allen Test Performed? Yes
[2021-01-18 09:43] LABS: ABG PO2 50 mmHg (83-108)
== END | disposition home or self-care (01) ==
LOC: LABWHC1 09:14
PROVIDERS: ATTEND Internal Medicine Critical Care Medicine
DX: J44.9 Chronic obstructive pulmonary disease, unspecified (principal)
CPT/HCPCS: 36600; 82805

== ENCOUNTER → 2021-02-03 | Outpatient (CLI) | payer BC ==
--- NOTE | 2021-02-03 17:26 | CT ---
"EXAMINATION TYPE: CT chest wo con DATE OF EXAM: 02/03/2021 COMPARISON: NONE HISTORY: Shortness of breath CT DLP: 211mGycm. Automated Exposure Control for Dose Reduction was Utilized. TECHNIQUE: CT scan of the thorax is performed without IV contrast. High-resolution protocol with 1 m m sequences obtained at 10 mm intervals in supine and prone technique. FINDINGS: LUNGS: Moderate to advanced underlying emphysematous change. Mild bibasilar linear fibrotic change. N o bronchiectasis. There is 6 mm calcified nodular granuloma in the periphery of the left upper lobe a xial image 70. Though the technique is not optimal for evaluation for pulmonary nodules there is susp icious spiculated anterior 1.4 x 0.9 cm nodule in the right upper lobe series 8 image 113 correspondi ng to coronal image 78 series 13. Follow-up advised. No pleural effusion or pneumothorax noted. MEDIASTINUM: Lack of IV contrast and technique are noted to limit evaluation for mediastinal and kong cially hilar adenopathy. There are no definitive greater than 1 cm mediastinal lymph nodes. Enlarged right and left pulmonary arteries consistent with pulmonary artery hypertension. Calcified left hilar lymph nodes. No cardiomegaly or pericardial effusion is seen. OTHER: Fullness in the upper abdomen likely are nonopacified bowel loops as patient has little intra- abdominal fat. Cannot exclude adenopathy below level of the adrenal glands. IMPRESSION: Moderate to advanced underlying emphysematous change. No significant peripheral fibrotic changes. Suspicious 1.4 cm spiculated nodule anterior right upper lobe worrisome for neoplasm. Follow -up PET/CT is advised. A Yellow level critical message alert has been initiated for Dani Low DO via the dotloop 0 | Critical Results System on 02/03/2021 5:23 PM. This message alert has been sent to Dani Low DO via the preferences provided by the clinician for the receipt of Radiology Critical Findings. Tx ssage ID [id number]."
== END | disposition home or self-care (01) ==
LOC: RADCTMAIN 16:20
PROVIDERS: ATTEND Internal Medicine Critical Care Medicine
DX: R06.02 Shortness of breath (principal)
CPT/HCPCS: 71250

== ENCOUNTER → 2021-02-14 | Outpatient (CLI) | payer BC ==
--- NOTE | 2021-02-17 09:30 | PE ---
EXAMINATION TYPE: PET CT fusion skull to thigh DATE OF EXAM: 02/14/2021 COMPARISON: Chest CT February 03, 2021 HISTORY: Abnormal CT, solitary pulmonary nodule. TECHNIQUE: Following the intravenous administration of 6.96 mCi of F-18 FDG, whole body images are p erformed from the skull base to the midthigh. Images are reviewed on the computer in the coronal, ax ial, and sagittal planes. Reconstructed rotating images are created on independent workstation and r eviewed on the computer. A localization and attenuation correction CT is performed in conjunction w ith the PET scan. Blood glucose level equals 119 SCAN: Initial Scan FINDINGS: SKULL BASE AND NECK: No areas of abnormal hypermetabolic uptake. CHEST, MEDIASTINUM, AND HILAR REGION: Moderate underlying emphysematous change is redemonstrated. 6 p ersistent suspicious spiculated nodule anterior right upper lung measuring 1.5 x 0.8 cm axial image 8 6 however this is ametabolic. Focal postinflammatory scars are suspected. Occasional scattered calcif ied subcentimeter nodule or benign granuloma in the left upper lobe redemonstrated. No areas of abnor mal hypermetabolic uptake in the thorax including the mediastinum. ABDOMEN AND PELVIS: No adrenal masses. Normal excretion. No suspicious abnormal hypermetabolic uptake . OSSEOUS STRUCTURES: No suspicious abnormal hypermetabolic uptake. OTHER CT: Mild calcified plaque left carotid bulb level. Single calcification in the spleen. Patient has little intra-abdominal fat. Facet arthropathy lower lumbar spine. Grade 1 anterolisthesis L4 on L5. Moderate disc space narrowing with vacuum disc phenomenon and endplate sclerosis. IMPRESSION: Moderate underlying emphysematous change with stable 1.5 x 0.8 cm right upper lung spicul ated nodule or more likely scarring as area is ametabolic consistent with postinflammatory etiology. Advise short-term follow-up CT or PET/CT in 6-12 months time to document stability.
== END | disposition home or self-care (01) ==
LOC: RADPETMAIN 12:01
PROVIDERS: ATTEND Internal Medicine Critical Care Medicine
DX: R91.8 Other nonspecific abnormal finding of lung field (principal)
CPT/HCPCS: 78815; A9552

== ENCOUNTER → 2021-09-11 | Outpatient (CLI) | payer BC ==
[2021-09-11 16:15] LABS: HCT 46.2 % (37.2-46.3); HGB 14.1 g/dL (12.0-15.0); MCH 25.8 pg (27.0-32.0); MCHC 30.5 g/dL (32.0-37.0); MCV 84.5 fL (80.0-97.0); Mean Platelet Volume 10.3 fL (9.5-12.2); NRBC Per 100 WBC 0 /100 WBCS (0.0-0.0); Platelet Count 265 X 10*3/uL (140-440); RBC 5.47 X 10*6/uL (4.10-5.20); RDW 14.7 % (11.5-14.5); WBC 6.48 X 10*3/uL (4.50-10.00)
[2021-09-11 17:12] LABS: African American GFR (CKD) 124.8 (60.0-200.0); Anion Gap 8.9 mmol/L (10.00-18.00); BUN/Creat Ratio 25.97 Ratio (12.00-20.00); Blood Urea Nitrogen 12.1 mg/dL (9.0-27.0); Calcium 9.8 mg/dL (8.7-10.3); Carbon Dioxide 33.1 mmol/L (20.0-27.5); Non-African American GFR(CKD) 107.7 (60.0-200.0); Potassium 4.1 mmol/L (3.5-5.5)
== END | disposition home or self-care (01) ==
LOC: LABWHC1 08:56
PROVIDERS: ATTEND Internal Medicine Critical Care Medicine
DX: Z01.818 Encounter for other preprocedural examination (principal)
CPT/HCPCS: 36415; 80048; 85027; 93005

== ENCOUNTER → 2021-12-26 | Outpatient (CLI) | payer BC ==
[2021-12-26 14:09] LABS: HCT 43.2 % (37.2-46.3); HGB 12.8 g/dL (12.0-15.0); MCH 25.8 pg (27.0-32.0); MCHC 29.6 g/dL (32.0-37.0); MCV 86.9 fL (80.0-97.0); Mean Platelet Volume 10.4 fL (9.5-12.2); NRBC Per 100 WBC 0 /100 WBCS (0.0-0.0); Platelet Count 297 X 10*3/uL (140-440); RBC 4.97 X 10*6/uL (4.10-5.20); RDW 14.4 % (11.5-14.5)
[2021-12-26 17:46] LABS: African American GFR (CKD) 116.8 (60.0-200.0); Anion Gap 9.1 mmol/L (10.00-18.00); BUN/Creat Ratio 21.9 Ratio (12.00-20.00); Blood Urea Nitrogen 12.2 mg/dL (9.0-27.0); Calcium 9.2 mg/dL (8.7-10.3); Carbon Dioxide 33.7 mmol/L (20.0-27.5); Non-African American GFR(CKD) 100.8 (60.0-200.0); Potassium 5.4 mmol/L (3.5-5.5)
== END | disposition home or self-care (01) ==
LOC: LABWHC1 10:13
PROVIDERS: ATTEND Internal Medicine Critical Care Medicine
DX: Z01.812 Encounter for preprocedural laboratory examination (principal)
CPT/HCPCS: 36415; 80048; 85027

== ENCOUNTER 2024-04-23 11:08 | Inpatient (IN) | payer BC ==
[2024-04-23 11:25] LABS: Glucose,Whole Blood 138 mg/dL (70-110)
[2024-04-23] MEDS: SODIUM CHLORIDE 0.9% 1,000 ML IV STA (11:41)
--- NOTE | 2024-04-23 11:42 | ED ---
General Adult HPI - General Chief complaint: Shortness of Breath Stated complaint: SOB Time Seen by Provider: 04/23/24 11:15 Source: patient, EMS, RN notes reviewed, old records reviewed Mode of arrival: EMS Limitations: no limitations - History of Present Illness Initial comments: This is a 63-year-old female who has a past medical history significant for COPD. Patient states her symptoms of shortness of breath began about a month ago and gotten progressively worse. According to the she also has had some altered mental status. Patient denies any chest pain or palpitation. Patient states she just does not feel well all over and she does complain of some back pain which she states is quite similar to the previous back pain she has when she has an exacerbation of COPD. Patient denies abdominal pain patient has nausea vomiting. Patient denies any fever chills. - Related Data Home Medications Medication Instructions Recorded Confirmed Albuterol Inhaler [Ventolin Hfa 2 puff INHALATION RT-Q4H PRN 06/01/20 06/01/20 Inhaler] Ipratropium-Albuterol Nebulize 3 ml INHALATION RT-QID 06/01/20 06/01/20 [Duoneb 0.5 mg-3 mg/3 ml Soln] Previous Rx's Medication Instructions Recorded cefuroxime axetiL [Ceftin] 500 mg PO BID 7 Days #14 tab 06/02/20 predniSONE 10 mg PO DIRECTED 12 Days #30 06/02/20 tab Allergies Allergy/AdvReac Type Severity Reaction Status Date / Time No Known Allergies Allergy Verified 04/23/24 11:16 Review of Systems ROS Statement: Those systems with pertinent positive or pertinent negative responses have been documented in the HPI. ROS Other: All systems not noted in ROS Statement are negative. Past Medical History Past Medical History: COPD Additional Past Medical History / Comment(s): sinus polyp History of Any Multi-Drug Resistant Organisms: None Reported Additional Past Surgical History / Comment(s): dermabrasion cheek, sinus polyp removal Past Anesthesia/Blood Transfusion Reactions: No Reported Reaction Past Psychological History: No Psychological Hx Reported Smoking Status: Former smoker Past Alcohol Use History: None Reported Past Drug Use History: None Reported - Past Family History Mother Family Medical History: COPD Father Family Medical History: Myocardial Infarction (AR) General Exam - General Exam Comments Initial Comments: GENERAL: Patient is well-developed and well-nourished. Patient is nontoxic and well- hydrated and is in mild distress. ENT: Neck is soft and supple. No significant lymphadenopathy is noted. Oropharynx is clear. Moist mucous membranes. Neck has full range of motion without eliciting any pain. EYES: The sclera were anicteric and conjunctiva were pink and moist. Extraocular movements were intact and pupils were equal round and reactive to light. Eyelids were unremarkable. PULMONARY: Patient has diminished breath sounds throughout CARDIOVASCULAR: There is a regular rate and rhythm without any murmurs gallops or rubs. ABDOMEN: Soft and nontender with normal bowel sounds. No palpable organomegaly was noted. There is no palpable pulsatile mass. SKIN: Skin is clear with no lesions or rashes and otherwise unremarkable. NEUROLOGIC: Patient is alert and oriented x3. Cranial nerves II through XII are grossly intact. Motor and sensory are also intact. Normal speech, volume and content. Symmetrical smile. MUSCULOSKELETAL: Normal extremities with adequate strength and full range of motion. No lower extremity swelling or edema. No calf tenderness. LYMPHATICS: No significant lymphadenopathy is noted PSYCHIATRIC: Normal psychiatric evaluation. Limitations: no limitations Course Vital Signs 04/23/24 04/23/24 04/23/24 11:10 11:27 11:30 Temperature 95.5 F L Pulse Rate 114 H 101 H 90 Respiratory 24 20 20 Rate Blood Pressure 88/65 91/60 81/53 O2 Sat by Pulse 98 98 97 Oximetry Fraction of Inspired Oxygen (FIO2) 04/23/24 04/23/24 04/23/24 11:51 12:00 12:30 Temperature 94.3 F L 94.8 F L 95 F L Pulse Rate 86 87 85 Respiratory 20 20 20 Rate Blood Pressure 87/46 84/50 76/46 O2 Sat by Pulse 98 98 98 Oximetry Fraction of Inspired Oxygen (FIO2) 04/23/24 04/23/24 04/23/24 13:00 13:15 13:34 Temperature 95.2 F L 94.5 F L Pulse Rate 93 101 H Respiratory 20 20 Rate Blood Pressure 88/47 82/49 99/60 O2 Sat by Pulse 97 93 L Oximetry Fraction of Inspired Oxygen (FIO2) 04/23/24 04/23/24 04/23/24 14:00 14:12 14:15 Temperature 97.8 F Pulse Rate 92 100 143 H Respiratory 38 H Rate Blood Pressure 90/50 116/66 O2 Sat by Pulse Oximetry Fraction of Inspired Oxygen (FIO2) 04/23/24 04/23/24 04/23/24 14:20 14:25 14:30 Temperature Pulse Rate 122 H 105 H Respiratory 6 L 12 Rate Blood Pressure 80/51 47/32 O2 Sat by Pulse 91 L Oximetry Fraction of Inspired Oxygen (FIO2) 04/23/24 04/23/24 04/23/24 14:40 14:45 14:50 Temperature Pulse Rate 104 H 99 Respiratory 14 Rate Blood Pressure 77/46 88/54 O2 Sat by Pulse Oximetry Fraction of 100 Inspired Oxygen (FIO2) 04/23/24 04/23/24 04/23/24 14:55 14:59 15:25 Temperature 96.1 F L Pulse Rate 98 98 Respiratory 20 18 Rate Blood Pressure 79/30 81/54 O2 Sat by Pulse 97 100 Oximetry Fraction of 100 50 Inspired Oxygen (FIO2) Procedures - Central Line Placement Right Femoral Consent Obtained: emergent situation Patient Placed on Monitor/Pulse Ox: Yes MD Prep: mask, gown, gloves Central Line Prep: Chlorhexidine scrub Local Anesthesia Used: Lidocaine 1% Ultrasound Used for Placement: No Central Line Lumen Inserted: triple Bloods Obtained for Lab: No Central Line Position: good blood return, all ports aspirated, flushed, capped, sutured in place with nylon Dressing Applied: Tegaderm Patient Tolerated Procedure: well Complications: none - Intubation Sedative: Versed Mg Given: 5 Paralytic: Succinylcholine Mg Given: 100 Laryngoscope: Webster Size: 4 ET Tube Size: 7.5 ET Tube Uncuffed: No Tube Secured Location: teeth Tube Placement Confirmation: visualized tube passing through cords, equal breath sounds bilaterally, no breath sounds over epigastrium, confirmation by capnometry Patient Tolerated Procedure: well Intubation Complications: none Medical Decision Making - Medical Decision Making EKG is interpreted by myself. EKG shows sinus tachycardia at 101 bpm TX 154 QRS is 93 QT interval is 323 QTc is 381. Patient's EKG shows no ST segment elevation Was pt. sent in by a medical professional or institution (, PA, WIND FIELD MANAGER, urgent care, hospital, or longterm...) When possible be specific @ -No Did you speak to anyone other than the patient for history (EMS, parent, family, police, friend...)? What history was obtained from this source @ -No Did you review nursing and triage notes (agree or disagree)? Why? @ -I reviewed and agree with nursing and triage notes Were old charts reviewed (outside hosp., previous admission, EMS record, old EKG, old radiological studies, urgent care reports/EKG's, longterm records)? Report findings @ -No old charts were reviewed Differential Diagnosis? @ -Differential Dyspnea: Coronary syndrome, arrhythmia, tamponade, asthma, COPD, pulmonary embolism, pneumonia, pneumothorax, pulmonary effusion, anaphylaxis, diabetic ketoacidosis, flailed chest, pulmonary contusion, diaphragmatic rupture, anemia, neuromuscular, this is not meant to be an all-inclusive list. Differential Altered Mental Status: Hypoglycemia, DKA, hypercapnia, ETOH, overdose, CO poisoning, trauma, myxedema coma, HTN encephalopathy, infection, encephalitis, psychosis, intercranial hemorrhage, hepatic encephalopathy, meningitis, CVA, this is not meant to be an all-inclusive list EKG interpreted by me (3pts min.). @ -As above X-rays interpreted by me (1pt min.). @ -X-ray shows infiltrate in the left lung CT interpreted by me (1pt min.). @ -CT of the brain shows at least 4 areas of vasogenic edema consistent with metastatic disease U/S interpreted by me (1pt. min.). @ -None done What testing was considered but not performed or refused? (CT, X-rays, U/S, labs)? Why? @ -None What meds were considered but not given or refused? Why? @ -None Did you discuss the management of the patient with other professionals (professionals i.e. , PA, WIND FIELD MANAGER, lab, RT, psych nurse, criminal justice social worker, monotype keyboard operator, teacher, sba business development officer, director of casework services)? Give summary @ -I spoke with Dr. Low he agreed to admit the patient to the ICU. Spoke with Dr. Clark and he agreed to admit the patient. Was smoking cessation discussed for >3mins.? @ -No Was critical care preformed (if so, how long)? @ -45 minutes Were there social determinants of health that impacted care today? How? (Homelessness, low income, unemployed, alcoholism, drug addiction, transportation, low edu. Level, literacy, decrease access to med. care, fpc, rehab)? @ -No Was there de-escalation of care discussed even if they declined (Discuss DNR or withdrawal of care, Hospice)? DNR status @ -No What co-morbidities impacted this encounter? (DM, HTN, Smoking, COPD, CAD, Cancer, CVA, ARF, Chemo, Hep., AIDS, mental health diagnosis, sleep apnea, morbid obesity)? @ -None Was patient admitted / discharged? Hospital course, mention meds given and route, prescriptions, significant lab abnormalities, going to OR and other per tinent info. @ -Patient came in initially complaining of some difficulty breathing it look like she had pneumonia on the x-ray shows antibiotics restarted her breathing got more difficult I gave her a breathing treatment shortly after that she was a little anxious and then she became completely unresponsive at which point in time we assisted her breathing with bagging for couple of minutes her oxy genation was up in the 98 range and she was no more responsive at which point in time I intubated her. I then placed a central line in her right femoral vein. Patient was placed on Levophed and started on propofol. Patient also received 2 g of Rocephin and Zithromax Undiagnosed new problem with uncertain prognosis? @ -No Drug Therapy requiring intensive monitoring for toxicity (Heparin, Nitro, Insulin, Cardizem)? @ -No Were any procedures done? @ -No Diagnosis/symptom? @ -Pneumonia Acute, or Chronic, or Acute on Chronic? @ -Acute Uncomplicated (without systemic symptoms) or Complicated (systemic symptoms)? @ -Complicated Side effects of treatment? @ -No Exacerbation, Progression, or Severe Exacerbation? @ -No Poses a threat to life or bodily function? How? (Chest pain, [place], AR, pneumonia, PE, COPD, DKA, ARF, appy, cholecystitis, CVA, Diverticulitis, Homicidal, Suicidal, threat to staff... and all critical care pts) @ -Yes this can lead to hypoxia and endorgan dysfunction Diagnosis/symptom? @ -Brain lesions with vasogenic edema Acute, or Chronic, or Acute on Chronic? @ -Acute Uncomplicated (without systemic symptoms) or Complicated (systemic symptoms)? @ -Complicated Side effects of treatment? @ -None Exacerbation, Progression, or Severe Exacerbation] @ -No Poses a threat to life or bodily function? @ -Yes this can cause herniation and Diagnosis/symptom? @ -Unresponsive episode Acute, or Chronic, or Acute on Chronic? @ -Acute Uncomplicated (without systemic symptoms) or Complicated (systemic symptoms)? @ -Complicated Side effects of treatment? @ -None Exacerbation, Progression, or Severe Exacerbation] @ -No Poses a threat to life or bodily function? @ -Yes - Lab Data Result diagrams: 04/23/24 11:40 04/23/24 11:40 Lab Results 04/23/24 04/23/24 04/23/24 Range/Units 11:23 11:40 11:40 WBC 8.5 (3.8-10.6) k/uL RBC 4.27 (3.80-5.40) m/uL Hgb 11.2 L (11.4-16.0) gm/dL Hct 36.1 (34.0-46.0) % MCV 84.6 (80.0-100.0) fL MCH 26.3 (25.0-35.0) pg MCHC 31.1 (31.0-37.0) g/dL RDW 14.1 (11.5-15.5) % Plt Count 261 (150-450) k/uL MPV 7.4 Neutrophils % 85 % Lymphocytes % 7 % Monocytes % 4 % Eosinophils % 2 % Basophils % 0 % Neutrophils # 7.3 (1.3-7.7) k/uL Lymphocytes # 0.6 L (1.0-4.8) k/uL Monocytes # 0.4 (0-1.0) k/uL Eosinophils # 0.2 (0-0.7) k/uL Basophils # 0.0 (0-0.2) k/uL Hypochromasia Marked PT 11.1 (10.0-12.5) sec INR 1.0 (<1.2) APTT 22.2 (22.0-30.0) sec D-Dimer 1.74 H (<0.60) mg/L FEU Sample Site ABG pH (7.35-7.45) ABG pCO2 (35-45) mmHg ABG pO2 (83-108) mmHg ABG HCO3 (21-25) mmol/L ABG Total CO2 (19-24) mmol/L ABG O2 Saturation (94-97) % ABG Base Excess mmol/L Allan Test FiO2 % Sodium (137-145) mmol/L Potassium (3.5-5.1) mmol/L Chloride (98-107) mmol/L Carbon Dioxide (22-30) mmol/L Anion Gap mmol/L BUN (7-17) mg/dL Creatinine (0.52-1.04) mg/dL Est GFR (CKD-EPI)AfAm (>60 ml/min/1.73 sqM) Est GFR (CKD-EPI)NonAf (>60 ml/min/1.73 sqM) Glucose (74-99) mg/dL POC Glucose (mg/dL) 138 H (70-110) mg/dL POC Glu Women'S Garment Fitter ID Kranthi Garcia Plasma Lactic Acid Ang (0.7-2.0) mmol/L Calcium (8.4-10.2) mg/dL Magnesium (1.6-2.3) mg/dL Total Bilirubin (0.2-1.3) mg/dL AST (14-36) U/L ALT (4-34) U/L Alkaline Phosphatase (38-126) U/L Troponin I (0.000-0.034) ng/mL NT-Pro-B Natriuret Pep pg/mL Total Protein (6.3-8.2) g/dL Albumin (3.5-5.0) g/dL Influenza Type A (PCR) (Not Detectd) Influenza Type B (PCR) (Not Detectd) RSV (PCR) (Not Detectd) SARS-CoV-2 (PCR) (Not Detectd) 04/23/24 04/23/24 04/23/24 Range/Units 11:40 11:40 11:40 WBC (3.8-10.6) k/uL RBC (3.80-5.40) m/uL Hgb (11.4-16.0) gm/dL Hct (34.0-46.0) % MCV (80.0-100.0) fL MCH (25.0-35.0) pg MCHC (31.0-37.0) g/dL RDW (11.5-15.5) % Plt Count (150-450) k/uL MPV Neutrophils % % Lymphocytes % % Monocytes % % Eosinophils % % Basophils % % Neutrophils # (1.3-7.7) k/uL Lymphocytes # (1.0-4.8) k/uL Monocytes # (0-1.0) k/uL Eosinophils # (0-0.7) k/uL Basophils # (0-0.2) k/uL Hypochromasia PT (10.0-12.5) sec INR (<1.2) APTT (22.0-30.0) sec D-Dimer (<0.60) mg/L FEU Sample Site ABG pH (7.35-7.45) ABG pCO2 (35-45) mmHg ABG pO2 (83-108) mmHg ABG HCO3 (21-25) mmol/L ABG Total CO2 (19-24) mmol/L ABG O2 Saturation (94-97) % ABG Base Excess mmol/L Allan Test FiO2 % Sodium 135 L (137-145) mmol/L Potassium 3.9 (3.5-5.1) mmol/L Chloride 95 L (98-107) mmol/L Carbon Dioxide 34 H (22-30) mmol/L Anion Gap 6 mmol/L BUN 9 (7-17) mg/dL Creatinine 0.42 L (0.52-1.04) mg/dL Est GFR (CKD-EPI)AfAm >90 (>60 ml/min/1.73 sqM) Est GFR (CKD-EPI)NonAf >90 (>60 ml/min/1.73 sqM) Glucose 144 H (74-99) mg/dL POC Glucose (mg/dL) (70-110) mg/dL POC Glu Women'S Garment Fitter ID Plasma Lactic Acid Ang 1.1 (0.7-2.0) mmol/L Calcium 8.8 (8.4-10.2) mg/dL Magnesium 1.7 (1.6-2.3) mg/dL Total Bilirubin 0.4 (0.2-1.3) mg/dL AST 27 (14-36) U/L ALT 23 (4-34) U/L Alkaline Phosphatase 70 (38-126) U/L Troponin I <0.012 (0.000-0.034) ng/mL NT-Pro-B Natriuret Pep 176 pg/mL Total Protein 6.1 L (6.3-8.2) g/dL Albumin 3.5 (3.5-5.0) g/dL Influenza Type A (PCR) (Not Detectd) Influenza Type B (PCR) (Not Detectd) RSV (PCR) (Not Detectd) SARS-CoV-2 (PCR) (Not Detectd) 04/23/24 04/23/24 Range/Units 11:40 15:07 WBC (3.8-10.6) k/uL RBC (3.80-5.40) m/uL Hgb (11.4-16.0) gm/dL Hct (34.0-46.0) % MCV (80.0-100.0) fL MCH (25.0-35.0) pg MCHC (31.0-37.0) g/dL RDW (11.5-15.5) % Plt Count (150-450) k/uL MPV Neutrophils % % Lymphocytes % % Monocytes % % Eosinophils % % Basophils % % Neutrophils # (1.3-7.7) k/uL Lymphocytes # (1.0-4.8) k/uL Monocytes # (0-1.0) k/uL Eosinophils # (0-0.7) k/uL Basophils # (0-0.2) k/uL Hypochromasia PT (10.0-12.5) sec INR (<1.2) APTT (22.0-30.0) sec D-Dimer (<0.60) mg/L FEU Sample Site rbrach ABG pH 7.28 L (7.35-7.45) ABG pCO2 60 H (35-45) mmHg ABG pO2 >420 H (83-108) mmHg ABG HCO3 28 H (21-25) mmol/L ABG Total CO2 30 H (19-24) mmol/L ABG O2 Saturation >100.0 H (94-97) % ABG Base Excess 0.6 mmol/L Allan Test Yes FiO2 100 % Sodium (137-145) mmol/L Potassium (3.5-5.1) mmol/L Chloride (98-107) mmol/L Carbon Dioxide (22-30) mmol/L Anion Gap mmol/L BUN (7-17) mg/dL Creatinine (0.52-1.04) mg/dL Est GFR (CKD-EPI)AfAm (>60 ml/min/1.73 sqM) Est GFR (CKD-EPI)NonAf (>60 ml/min/1.73 sqM) Glucose (74-99) mg/dL POC Glucose (mg/dL) (70-110) mg/dL POC Glu Women'S Garment Fitter ID Plasma Lactic Acid Ang (0.7-2.0) mmol/L Calcium (8.4-10.2) mg/dL Magnesium (1.6-2.3) mg/dL Total Bilirubin (0.2-1.3) mg/dL AST (14-36) U/L ALT (4-34) U/L Alkaline Phosphatase (38-126) U/L Troponin I (0.000-0.034) ng/mL NT-Pro-B Natriuret Pep pg/mL Total Protein (6.3-8.2) g/dL Albumin (3.5-5.0) g/dL Influenza Type A (PCR) Not Detected (Not Detectd) Influenza Type B (PCR) Not Detected (Not Detectd) RSV (PCR) Not Detected (Not Detectd) SARS-CoV-2 (PCR) Not Detected (Not Detectd) Disposition Clinical Impression: Pneumonia, Unresponsive state, Metastatic cancer to brain, Vasogenic edema Disposition: ADMITTED IP TO THIS HOSP Referrals: Magalys Gibbs MD [Primary Care Provider] - 1-2 days Time of Disposition: 16:02
[2024-04-23 11:56] LABS: Basophils % (A) 0 %; Eosinophils # (A) 0.2 k/uL (0-0.7); Eosinophils % (A) 2 %; HCT 36.1 % (34.0-46.0); HGB 11.2 gm/dL (11.4-16.0); Hypochromasia Marked; Lymphocytes # (A) 0.6 k/uL (1.0-4.8); Lymphocytes % (A) 7 %; MCH 26.3 pg (25.0-35.0); MCHC 31.1 g/dL (31.0-37.0); MCV 84.6 fL (80.0-100.0); Mean Platelet Volume 7.4; Monocytes # (A) 0.4 k/uL (0-1.0); Monocytes % (A) 4 %; Neutrophils # (A) 7.3 k/uL (1.3-7.7); Neutrophils % (A) 85 %; Platelet Count 261 k/uL (150-450); RBC 4.27 m/uL (3.80-5.40); RDW 14.1 % (11.5-15.5); WBC 8.5 k/uL (3.8-10.6)
[2024-04-23 12:20] LABS: ALT 23 U/L (4-34); AST 27 U/L (14-36); African American GFR (CKD) >90 (>60 ml/min/1.73 sqM); Albumin 3.5 g/dL (3.5-5.0); Alkaline Phosphatase 70 U/L (38-126); Anion Gap 6 mmol/L; Blood Urea Nitrogen 9 mg/dL (7-17); Calcium 8.8 mg/dL (8.4-10.2); Carbon Dioxide 34 mmol/L (22-30); Chloride 95 mmol/L (98-107); Glucose 144 mg/dL (74-99); Magnesium 1.7 mg/dL (1.6-2.3); Non-African American GFR(CKD) >90 (>60 ml/min/1.73 sqM); Potassium 3.9 mmol/L (3.5-5.1); Sodium 135 mmol/L (137-145); Total Bilirubin 0.4 mg/dL (0.2-1.3); Total Protein 6.1 g/dL (6.3-8.2)
[2024-04-23 12:27] LABS: NT-Pro-B-Type Natriuretic Pept 176 pg/mL
[2024-04-23 12:30] LABS: Influenza A Not Detected (Not Detectd); Influenza B Not Detected (Not Detectd); RSV Not Detected (Not Detectd)
[2024-04-23 12:38] LABS: Partial Thromboplastin Time 22.2 sec (22.0-30.0); Prothrombin Time 11.1 sec (10.0-12.5)
--- NOTE | 2024-04-23 12:45 | XR ---
EXAMINATION TYPE: XR chest 1V DATE OF EXAM: 04/23/2024 12:23 PM COMPARISON: Chest radiographs from 06/01/2020 CLINICAL INDICATION: Female, 63 years old with history of difficulty breathing; [facility] TECHNIQUE: XR chest 1V Frontal view of the chest. FINDINGS: Lungs/Pleura: Interval haziness to the left mid and lower lung obscuring the heart borders. There is no evidence of pleural effusion, right focal consolidation, or pneumothorax. Pulmonary vascularity: Unremarkable. Heart/mediastinum: Cardiomediastinal silhouette is unremarkable. Musculoskeletal: No acute osseous pathology. IMPRESSION: Left-sided airspace opacities correlate for pneumonia. [facility], , 04/23/2024 12:42 PM
[2024-04-23] MEDS: SODIUM CHLORIDE 0.9% 1,000 ML IV ONE (12:48)
[2024-04-23] MEDS: cefTRIAXone IN SWFI 1,000 MG/10 ML SYRINGE IVP STA (13:47)
[2024-04-23] MEDS: AZITHROMYCIN 500 MG in SODIUM CHLORIDE 0.9% 250 ML IVPB STA (13:47)
[2024-04-23] MEDS: ALBUTEROL NEBULIZED 2.5 MG/3 ML INHALATION STA (13:59)
[2024-04-23] MEDS: IPRATROPIUM 0.5 MG/2.5 ML NEBU INHALATION STA (13:59)
--- NOTE | 2024-04-23 14:08 | CT ---
EXAMINATION TYPE: CT brain wo con DATE OF EXAM: 04/23/2024 1:48 PM COMPARISON: 02/14/2021. CLINICAL INDICATION: Female, 63 years old with history of Altered mental status, AMS TECHNIQUE: Brain: Axial CT images of the brain were obtained with coronal and sagittal reformats created and rev iewed. Contrast used: None. Oral contrast used: None. CT DLP: 1109.4 mGycm, Automated exposure control for dose reduction was used. FINDINGS: Brain: Extra-axial spaces: No abnormal extra-axial fluid collections. Ventricular system: Within normal limits Cerebral parenchyma: Scattered areas of tavera-white matter junction vasogenic edema with possible mass es. Findings including Right frontal lobe,e left posterior frontal lobe and right occipital/parietal region . possibly present No acute intraparenchymal hemorrhage or mass effect. The tavera-white junction is wel l differentiated. Cerebellum: Unremarkable. Mass effect: No evidence of midline shift. Intracranial vasculature: unremarkable Soft tissues: Normal. Calvarium/osseous structures: No depressed skull fracture. Paranasal sinuses and mastoid air cells: Mild scattered paranasal sinus disease. Visualized orbits: Orbital contents are intact. IMPRESSION: Scattered areas of tavera-white matter vasogenic edema with possible masses in the right frontal lobe l eft posterior frontal lobe and right occipital/parietal region. Findings concerning for metastatic di sease. MRI brain with contrast recommended for further workup [facility], , 04/23/2024 2:05 PM
--- NOTE | 2024-04-23 14:17 | CT ---
EXAMINATION TYPE: CT chest angio for PE DATE OF EXAM: 04/23/2024 1:48 PM COMPARISON: Chest radiograph from same day. 02/03/2021, 02/14/2021 CLINICAL INDICATION: Female, 63 years old with history of Dyspnea, elevated D-dimer; Dyspnea, elevate d D-dimer TECHNIQUE/CONTRAST: CTA scan of the thorax is performed with IV Contrast, patient injected with 66ml mL of Isovue 370, [place] P images are created and reviewed these are created on a separate workstation.. CT DLP: 245.5 mGycm, Automated exposure control for dose reduction was used. FINDINGS: Lungs/Pleura: Left upper lung atelectasis with large airways mucous plugging. Marked severe emphysema changes. No evidence of focal consolidation, pleural effusion or pneumothorax. Intralobular septal t hickening. Airway: Suspected endobronchial valve in the left upper lung with mucous plugging resulting in atelec tasis. Mild bronchial wall thickening. Heart: Size within normal limits Vasculature: There is no evidence for a filling defect within the pulmonary vasculature to suggest ac [place] pulmonary embolism. The pulmonary artery is of normal size. Mediastinum: No gross evidence of adenopathy. Mild leftward shift of the mediastinum due to atelectas is. Musculoskeletal: Mild disc degeneration changes are present throughout the thoracolumbar spine second lynette to osteophyte formation and facet joint arthropathy. Soft Tissues/lymph nodes: Unremarkable. Lower neck: No significant findings. Upper Abdomen: Questionable lymph node in the retroperitoneum measuring up to 15 mm. Evaluation limit ed by paucity of intra-abdominal fat and lack of IV and oral contrast. IMPRESSION: 1. No evidence of pulmonary embolism. 2. Large severe emphysema with endobronchial valves are thought to be present in the left upper lung. There are secretions within these areas with atelectasis of the left upper lung medially. 3. Pulmonary vessel congestion correlate with serum BNP for volume overload. 4. Moderate to severe emphysema and COPD changes. 5. Possible lymph nodes are seen in the upper abdomen retroperitoneum. Further workup of the abdomen with IV and oral contrast recommended Follow up recommendations for incidental pulmonary nodules, if there are any, are per [employer] or [place] [employer]. [email or web address]?[email or web address] [facility], , 04/23/2024 2:15 PM
[2024-04-23] MEDS: DEXAMETHASONE SOD PHOSPHATE 10 MG/ML 1 ML VIAL IVP STA (14:32)
[2024-04-23] MEDS: MIDAZOLAM 1 MG/ML 5 ML VIAL IV STA (14:35)
[2024-04-23] MEDS: SUCCINYLCHOLINE CHLORIDE 200 MG/10 ML VIAL IV STA (14:36)
--- NOTE | 2024-04-23 15:00 | XR ---
EXAMINATION TYPE: XR chest 1V portable DATE OF EXAM: 04/23/2024 2:44 PM COMPARISON: Chest radiographs CLINICAL INDICATION: Female, 63 years old with history of tube placement; [facility] TECHNIQUE: XR chest 1V portable Frontal view of the chest. FINDINGS: Lungs/Pleura: Similar multifocal airspace opacities worse on the left with more reticular appearance of the right. No evidence of pneumothorax or pleural effusion. Pulmonary vascularity: Unremarkable. Heart/mediastinum: Cardiomediastinal silhouette is unremarkable. Musculoskeletal: No acute osseous pathology. Other findings: None Lines/Tubes: Endotracheal tube with distal tip 3.0 cm above the christina. Nasogastric tube with its distal tip and side-port projecting under the diaphragm. IMPRESSION: 1. Similar multifocal airspace opacities. 2. Stable support lines and tubes. [facility], , 04/23/2024 2:58 PM
[2024-04-23 15:18] LABS: ABG Base Excess 0.6 mmol/L; ABG HCO3 28 mmol/L (21-25); ABG Oxygen Saturation >100.0 % (94-97); ABG PCO2 60 mmHg (35-45); ABG PH 7.28 (7.35-7.45); ABG TCO2 30 mmol/L (19-24); Allen Test Performed? Yes
[2024-04-23 15:21] LABS: ABG PO2 >420 mmHg (83-108)
[2024-04-23] MEDS: LORazepam 2 MG/ML INJ IV STA (15:25)
--- NOTE | 2024-04-23 15:54 | CT ---
EXAMINATION TYPE: CT brain wo con DATE OF EXAM: 04/23/2024 3:24 PM COMPARISON: Same day. CLINICAL INDICATION: Female, 63 years old with history of Altered mental status, unresponsive TECHNIQUE: Brain: Axial CT images of the brain were obtained with coronal and sagittal reformats created and rev iewed. Contrast used: None. Oral contrast used: None. CT DLP: 1099.6 mGycm, Automated exposure control for dose reduction was used. FINDINGS: Brain: Extra-axial spaces: No abnormal extra-axial fluid collections. Ventricular system: Within normal limits Cerebral parenchyma: Multiple nonenhancing masses are seen from prior chest CT examination. In the ri ght frontal lobe measuring 11 mm, left frontal lobe anteriorly measuring r 11 mm in more posteriorly measuring 12 mm. No acute intraparenchymal hemorrhage or mass effect. The tavera-white junction is wel l differentiated. Cerebellum: Unremarkable. Mass effect: No evidence of midline shift. Intracranial vasculature: unremarkable Soft tissues: Normal. Calvarium/osseous structures: No depressed skull fracture. Paranasal sinuses and mastoid air cells: Mild scattered paranasal sinus disease. Visualized orbits: Orbital contents are intact. IMPRESSION: Multiple enhancing tavera-white matter junction masses as seen on prior CT are more pronounced with rec ent contrast. Findings remain concerning for metastatic disease. [facility], , 04/23/2024 3:52 PM
[2024-04-23] MEDS ORDERED: NALOXONE 0.4 MG/ML 1 ML VIAL IV PRN (16:03)
--- NOTE | 2024-04-23 16:26 | P.CNPUL ---
History of Present Illness Consult date: 04/23/24 Requesting physician: Tavo Obrien Reason for consult: dyspnea, cough, COPD, hypoxemia, abnormal CXR/CT Chief complaint: Respiratory failure. History of present illness: Pulmonary consult dated April 23, 2024. 63-year-old female with a history of significant COPD. In fact, I believe I see her in the office for her COPD. She apparently was seen today April 23, in the emergency department, for shortness of breath, which according to the ER member began about a month ago. Is been getting progressively worse, and the patient apparently had some altered mental status according to her . The patient was initially seen in the emergency department, by Dr. Obrien, one of the ER physicians, and, the patient apparently became unresponsive, and required intubation and mechanical ventilation. The patient is currently going to be evaluated and treated, in the intensive care unit. Her past medical history is primarily positive for COPD, and she was a former smoker. She apparently also has a history of a polyp in her sinuses. Current laboratory data includes a white count 8.5, hemoglobin 11.2, hematocrit 36.1, and a platelet count of 261,000. D-dimer was 1.74. Blood gases showed a pO2 greater than 420, pCO2 of 60, the pH is 7.28. This was on 100%. I do not know the vent settings. Sodium 135, potassium 3.9, chloride 95, CO2 34, BUN 9, creatinine 0.42. Glucose was 138. N-terminal proBNP was normal. Troponin was negative. Viral screen was negative. Chest x-ray shows cardiomegaly, and may be some infiltrate in the right lower lobe. In addition the trachea appears to be torturous, and there may be some sort of a mass in the right paratracheal region. CT scan of the brain initially showed scattered areas of tavera-white matter vasogenic edema with possible masses in the right frontal lobe left posterior frontal lobe and right occipital parietal region. CTA was negative for pulmonary embolism. There was evidence of severe emphysema, primarily in the upper lobes. There appears also be a endobronchial valve, in the left upper lobe. Postintubation chest x-ray shows better aeration of both lung staples, and an endotracheal tube which is about 3 cm above the tracheal christina. Review of Systems REVIEW OF SYSTEMS: CONSTITUTIONAL: [Negative.] NEUROLOGIC: Mental status changes. HEENT: [ Negative.] CARDIAC: [Negative.] PULMONARY: Shortness of breath. GI: [Negative.] : [Negative.] RHEUMATOLOGIC: [ Negative.] IMMUNOLOGIC: [ Negative.] ENDOCRINE: [Negative. ] DERMATOLOGIC: [Negative.] Past Medical History Past Medical History: COPD Additional Past Medical History / Comment(s): sinus polyp History of Any Multi-Drug Resistant Organisms: None Reported Additional Past Surgical History / Comment(s): dermabrasion cheek, sinus polyp removal Past Anesthesia/Blood Transfusion Reactions: No Reported Reaction Past Psychological History: No Psychological Hx Reported Smoking Status: Former smoker Past Alcohol Use History: None Reported Past Drug Use History: None Reported - Past Family History Mother Family Medical History: COPD Father Family Medical History: Myocardial Infarction ([place]) Medications and Allergies Home Medications Medication Instructions Recorded Confirmed Type Albuterol Inhaler [Ventolin Hfa 2 puff INHALATION RT-Q4H PRN 06/01/20 06/01/20 History Inhaler] Ipratropium-Albuterol Nebulize 3 ml INHALATION RT-QID 06/01/20 06/01/20 History [Duoneb 0.5 mg-3 mg/3 ml Soln] cefuroxime axetiL [Ceftin] 500 mg PO BID 7 Days #14 tab 06/02/20 Rx predniSONE 10 mg PO DIRECTED 12 Days #30 06/02/20 Rx tab Allergies Allergy/AdvReac Type Severity Reaction Status Date / Time No Known Allergies Allergy Verified 04/23/24 11:16 Physical Exam Osteopathic Statement: *. No significant issues noted on an osteopathic structural exam other than those noted in the History and Physical/Consult. Vitals: Vital Signs Temp Pulse Resp BP Pulse Ox FiO2 04/23/24 16:10 50 04/23/24 16:08 108 H 28 H 78/57 100 04/23/24 15:25 50 04/23/24 14:59 98 18 81/54 100 04/23/24 14:55 96.1 F L 98 20 79/30 97 04/23/24 14:50 100 04/23/24 14:45 99 88/54 04/23/24 14:40 104 H 14 77/46 04/23/24 14:30 105 H 47/32 04/23/24 14:25 122 H 12 80/51 91 L 04/23/24 14:20 6 L 04/23/24 14:15 97.8 F 143 H 38 H 116/66 04/23/24 14:12 100 04/23/24 14:00 92 90/50 04/23/24 13:34 94.5 F L 101 H 20 99/60 93 L 04/23/24 13:15 95.2 F L 82/49 04/23/24 13:00 93 20 88/47 97 04/23/24 12:30 95 F L 85 20 76/46 98 04/23/24 12:00 94.8 F L 87 20 84/50 98 04/23/24 11:51 94.3 F L 86 20 87/46 98 04/23/24 11:30 90 20 81/53 97 04/23/24 11:27 101 H 20 91/60 98 04/23/24 11:10 95.5 F L 114 H 24 88/65 98 Intake and Output 04/23/24 04/23/24 04/23/24 06:59 14:59 22:59 Other: Weight 45.359 kg No acute distress, lethargic/somnolent, and poorly responsive.. HEENT examination is grossly unremarkable. Mucous membranes are moist. No oral lesions. Neck supple. Full range of motion. No adenopathy thyromegaly or neck vein distention. Cardiovascular examination reveals regular rhythm rate. S1-S2 normal. No S3 or S4. No discernible murmur noted. Lungs reveal scattered bilateral rhonchi and wheezes. Breath sounds are diminished. No crackles. Breath sounds are equal. Abdomen soft bowel sounds are heard. No masses or tenderness. Extremities are intact. No cyanosis clubbing or edema. Skin is without rash or lesion. Neurologic examination is difficult to assess. Results - Laboratory Findings CBC and BMP: 04/23/24 11:40 04/23/24 11:40 ABG ABG pH 7.28 (7.35-7.45) L 04/23/24 15:07 ABG pCO2 60 mmHg (35-45) H 04/23/24 15:07 ABG pO2 >420 mmHg (83-108) H 04/23/24 15:07 ABG O2 Saturation >100.0 % (94-97) H 04/23/24 15:07 PT/INR, D-dimer PT 11.1 sec (10.0-12.5) 04/23/24 11:40 INR 1.0 (<1.2) 04/23/24 11:40 D-Dimer 1.74 mg/L FEU (<0.60) H 04/23/24 11:40 Abnormal lab findings: Abnormal Labs 04/23/24 04/23/24 04/23/24 11:23 11:40 11:40 Hgb 11.2 L Lymphocytes # 0.6 L D-Dimer 1.74 H ABG pH ABG pCO2 ABG pO2 ABG HCO3 ABG Total CO2 ABG O2 Saturation Sodium Chloride Carbon Dioxide Creatinine Glucose POC Glucose (mg/dL) 138 H Total Protein 04/23/24 04/23/24 11:40 15:07 Hgb Lymphocytes # D-Dimer ABG pH 7.28 L ABG pCO2 60 H ABG pO2 >420 H ABG HCO3 28 H ABG Total CO2 30 H ABG O2 Saturation >100.0 H Sodium 135 L Chloride 95 L Carbon Dioxide 34 H Creatinine 0.42 L Glucose 144 H POC Glucose (mg/dL) Total Protein 6.1 L - Diagnostic Findings Chest x-ray: image reviewed CT scan - chest: image reviewed Assessment and Plan Assessment: Acute hypoxemic respiratory failure, S/P intubation and mechanical ventilation, April 23, 2024. Possible bilateral pneumonia. History of severe COPD. Concerning CT scan of the brain, showing multiple lesions, with surrounding vasogenic edema, consistent with possible metastatic disease. Prior history of heavy tobacco use. Plan: Plan dated April 23, 2024. The patient was initially seen in the emergency department, in room 19. At that time, she was on 4 L of oxygen, and was currently being evaluated by the ER physician. Subsequent to that, the patient was seen by the ER doctor, and apparently the patient had become poorly responsive, and required intubation and mechanical ventilation. CT scan of the brain showed lesions that were consistent with possible metastatic disease, with surrounding vasogenic edema. The patient was given Decadron. The patient will be transferred up to the inte nsive care unit, for further monitoring and management. Labs, x-rays, and medications are reviewed. 75 minutes were spent, evaluating this patient, including speaking to the ER physician about the patient's presentation, examination of the patient, review of pertinent laboratory data, x-rays, and medications, and discussions with the ICU staff about the management of this patient. A central line was apparently placed by the ER physician, and arterial line will be placed by our group. No additional recommendations are made. Prognosis is guarded. Morning x-ray, labs, and blood gases will be done. Time with Patient: Greater than 30
[2024-04-23] MEDS ORDERED: IPRATROPIUM-ALBUTEROL 3 ML NEB INHALATION PRN (16:27)
[2024-04-23 16:34] LABS: Glucose,Whole Blood 153 mg/dL (70-110)
[2024-04-23] MEDS: NOREPINEPHRINE 4 MG in SODIUM CHLORIDE 0.9% 250 ML IV SCH ×2 (17:18→23:01)
[2024-04-23] MEDS: DEXAMETHASONE SOD PHOSPHATE 4 MG/ML 1 ML VIAL IVP SCH (17:22)
[2024-04-23] MEDS: VASOPRESSIN 20 UNIT in SODIUM CHLORIDE 0.9% 50 ML IV SCH (17:26)
[2024-04-23] MEDS: IPRATROPIUM-ALBUTEROL 3 ML NEB INHALATION SCH (20:33)
[2024-04-23] MEDS: CHLORHEXIDINE GLUCONATE 15 ML CUP MUCOUS MEM SCH (20:52)
[2024-04-23 23:29] LABS: Glucose,Whole Blood 162 mg/dL (70-110)
--- NOTE | 2024-04-23 23:29 | PCN ---
PROCEDURE NOTE PROCEDURE: Right radial art line. PREOPERATIVE DIAGNOSIS: Frequent blood draws and blood gas monitoring. POSTOPERATIVE DIAGNOSIS: Frequent blood draws and blood gas monitoring. STORE MANAGEMENT TRAINEE: Dr. Low. FIRST LEAD PROJECT MANAGER: Dr. Lakesha Jean-Baptiste. ARTERIAL LINE PLACEMENT: Indications: Hemodynamic monitoring. A time-out was completed verifying correct patient, procedure, site, positioning, and implant(s) or special equipment if applicable. Allan's test was performed to ensure adequate perfusion. The patient's right/left wrist or right/left groin was prepped and draped in sterile fashion. 1% Lidocaine was used to anesthetize the area. An 18G Arrow arterial line was introduced into the radial/femoral artery. The catheter was threaded over the guide wire and the needle was removed with appropriate pulsatile blood return. Blood loss was minimal. The catheter was then sutured in place to the skin and a sterile dressing applied. Perfusion to the extremity distal to the point of catheter insertion was checked and found to be adequate. The patient tolerated the procedure well and there were no complications. The patient's procedure was done in room 263. There was informed consent and universal timeout. There was good blood return and waveform. The patient tolerated the procedure well. There was no immediate complication. The catheter was sutured in place and sterile dressing was applied by the nurse. MMODL / IJN: [id number] /
[2024-04-23] MEDS: HEPARIN SODIUM,PORCINE 5,000 UNIT/ML 1 ML VIAL SQ SCH (23:48)
[2024-04-24 05:17] LABS: Basophils % (A) 0 %; Eosinophils % (A) 0 %; HCT 37.2 % (34.0-46.0); HGB 11.4 gm/dL (11.4-16.0); Hypochromasia Marked; Lymphocytes # (A) 0.4 k/uL (1.0-4.8); Lymphocytes % (A) 6 %; MCH 26.1 pg (25.0-35.0); MCHC 30.7 g/dL (31.0-37.0); Mean Platelet Volume 8.1; Monocytes # (A) 0.1 k/uL (0-1.0); Monocytes % (A) 1 %; Neutrophils # (A) 6.1 k/uL (1.3-7.7); Neutrophils % (A) 92 %; Platelet Count 296 k/uL (150-450); RBC 4.38 m/uL (3.80-5.40); RDW 14.5 % (11.5-15.5); WBC 6.6 k/uL (3.8-10.6)
[2024-04-24 05:36] LABS: ABG Base Excess -1.7 mmol/L; ABG HCO3 25 mmol/L (21-25); ABG Oxygen Saturation 99.9 % (94-97); ABG PCO2 52 mmHg (35-45); ABG PO2 190 mmHg (83-108); ABG TCO2 27 mmol/L (19-24)
[2024-04-24 05:37] LABS: Glucose,Whole Blood 149 mg/dL (70-110)
[2024-04-24 06:06] LABS: Allen Test Performed? No
[2024-04-24 06:09] LABS: African American GFR (CKD) >90 (>60 ml/min/1.73 sqM); Anion Gap 9 mmol/L; Blood Urea Nitrogen 14 mg/dL (7-17); Calcium 8.8 mg/dL (8.4-10.2); Carbon Dioxide 22 mmol/L (22-30); Chloride 102 mmol/L (98-107); Glucose 156 mg/dL (74-99); Magnesium 1.7 mg/dL (1.6-2.3); Non-African American GFR(CKD) >90 (>60 ml/min/1.73 sqM); Potassium 4.9 mmol/L (3.5-5.1); Sodium 133 mmol/L (137-145)
[2024-04-24] MEDS: MAGNESIUM SULFATE-D5W PMX 1 GM in DEXTROSE/WATER 1 100ML.BAG IVPB ONE (06:29)
--- NOTE | 2024-04-24 07:56 | XR ---
EXAMINATION TYPE: XR chest 1V portable DATE OF EXAM: 04/24/2024 5:27 AM COMPARISON: Chest radiographs from 04/23/2024 TECHNIQUE: XR chest 1V portable Portable AP radiograph of the chest. CLINICAL INDICATION:Female, 63 years old with history of Tube placement; FINDINGS: Patient is rotated which limits evaluation. Lungs/Pleura: No pleural effusion or pneumothorax. Hyperinflation. Similar scattered reticular opacit ies within the right lung. Pulmonary vascularity: Unremarkable. Heart/mediastinum: Cardiomediastinal silhouette is unremarkable. Musculoskeletal: No acute osseous pathology. Other findings: None Lines/Tubes: Endotracheal tube with distal tip 6.0 cm above the christina Nasogastric tube with its distal tip and side-port projecting under the diaphragm and projecting over the gastric lumen. IMPRESSION: 1. COPD changes with similar reticular opacities throughout the right lung. 2. Endotracheal tube distal tip 6 cm above the christina. Recommend advancement of 3 cm. [facility], , 04/24/2024 7:54 AM
[2024-04-24] MEDS: PANTOPRAZOLE 40 MG/10 ML VIAL IV SCH (08:21)
[2024-04-24] MEDS: AZITHROMYCIN 500 MG in SODIUM CHLORIDE 0.9% 250 ML IVPB SCH (09:22)
[2024-04-24 12:09] LABS: Glucose,Whole Blood 143 mg/dL (70-110)
[2024-04-24] MEDS: SODIUM CHLORIDE 0.9% 1,000 ML IV SCH (12:11)
[2024-04-24] MEDS: SODIUM CHLORIDE 0.9% 1,000 ML IV ONE ×2 (12:11→20:21)
--- NOTE | 2024-04-24 12:53 | P.PN ---
Subjective Progress Note Date: 04/24/24 63-year-old female with a history of significant COPD. In fact, I believe I see her in the office for her COPD. She apparently was seen today April 23, in the emergency department, for shortness of breath, which according to the ER member began about a month ago. Is been getting progressively worse, and the patient apparently had some altered mental status according to her . The patient was initially seen in the emergency department, by Dr. Obrien, one of the ER physicians, and, the patient apparently became unresponsive, and required intubation and mechanical ventilation. The patient is currently going to be evaluated and treated, in the intensive care unit. Her past medical history is primarily positive for COPD, and she was a former smoker. She apparently also has a history of a polyp in her sinuses. Current laboratory data includes a white count 8.5, hemoglobin 11.2, hematocrit 36.1, and a platelet count of 261,000. D-dimer was 1.74. Blood gases showed a pO2 greater than 420, pCO2 of 60, the pH is 7.28. This was on 100%. I do not know the vent settings. Sodium 135, potassium 3.9, chloride 95, CO2 34, BUN 9, creatinine 0.42. Glucose was 138. N-terminal proBNP was normal. Troponin was negative. Viral screen was negative. Chest x-ray shows cardiomegaly, and may be some infiltrate in the right lower lobe. In addition the trachea appears to be torturous, and there may be some sort of a mass in the right paratracheal region. CT scan of the brain initially showed scattered areas of tavera-white matter vasogenic edema with possible masses in the right frontal lobe left posterior frontal lobe and right occipital parietal region. CTA was negative for pulmonary embolism. There was evidence of severe emphysema, primarily in the upper lobes. There appears also be a endobronchial valve, in the left upper lobe. Postintubation chest x-ray shows better aeration of both lung staples, and an endotracheal tube which is about 3 cm above the tracheal christina. On 04/24/2024, I am seeing this patient in the intensive care unit. The patient was brought into us and respiratory failure and the patient remains intubated on mechanical ventilator. Apparently, she presented to us with worsening shortness of breath and altered mentation. In the emergency, the patient was intubated and placed on the mechanical ventilator. Of significance is development of met astatic lesions to the brain. CAT scan of the brain was done on 04/23/2024 and it showed multiple enhancing tavera/white matter junction masses and this involves the right frontal lobe measuring 11 mm, left frontal lobe measuring 11 mm and another lesion posteriorly measuring 4 mm in size. No hemorrhage. No mass effect. The exact source of those lesions are not clear. Those are assumed to be metastatic in nature. Meanwhile, the patient underwent a CT of the chest that showed no evidence of any pulmonary embolism. There was extensive emphysematous changes bilaterally and the patient has endobronchial valves in the left upper lobe and there are some atelectatic change in the left upper lobe medially. There is also moderate to severe emphysematous changes bilaterally. A questionable lymph node was seen in the upper abdominal area that needs to be further characterize. Noted, the patient has undergone a previous PET/CT on 02/17/2021 which I assume was done for cancer workup and at that time the patient was found to have a stable 1.5 x 0.8 cm right upper lobe pulmonary nodule that showed no significant metabolic activity and focal post inflammatory scar was suspected. The most recent CAT scan of the chest done during this current admission shows no suspicious pulmonary nodules. No focal consolidation. No airspace disease. At this point in time, the patient remains intubated on mechanical ventilator. The patient is on assist-control rate of 28, tidal volume of 350, FiO2 50% with a PEEP of 5. Blood gas shows a pH of 7.3 with a pCO2 of 52 and pO2 of 190. The patient is currently on KVO IV fluids. She is on a norepinephrine running at 0.08 mcg/kg/min and vasopressin physiologic dose at 0.03 units. The white cell count of 6.6 with hemoglobin 9.5 platelet count of 296. Sodium is at 133, BUN 14 with a creatinine of 0.4. Cultures are still pending for now. The patient's viral screen was negative, procalcitonin level is 0.03. Troponins are negative. LFTs are normal. The patient is currently on DuoNeb updrafts, IV Rocephin and Zithromax. The patient also on Decadron 4 mg IV every 6 hours. Sedated with propofol. IV fluids were at KVO. Based on low urine output, I recommended to start the patient on normal citrate of 75 cc an hour. Objective - Vital Signs Vital signs: Vital Signs Temp 97.8 F 04/24/24 08:15 Pulse 86 04/24/24 10:15 Resp 28 H 04/24/24 10:15 BP 112/71 04/24/24 10:15 Pulse Ox 100 04/24/24 10:15 FiO2 50 04/24/24 08:32 Intake & Output 04/23/24 04/24/24 04/24/24 18:59 06:59 18:59 Intake Total 64.935 687.686 153.053 Output Total 120 395 110 Balance -55.065 292.686 43.053 Weight 45.359 kg 59.2 kg Intake: IV 20 153 52 .9 @ 10ml 20 120 40 pressure bag 33 12 Intake, IV Titration 44.935 534.686 101.053 Amount Norepinephrine 4 mg In 37.587 216.413 Sodium Chloride 0.9% 250 ml @ 0.03 MCG/KG/MIN 5. 185 mls/hr IV .Q24H [facility] Rx#:[id number] Norepinephrine 4 mg In 163.888 48.445 Sodium Chloride 0.9% 250 ml @ 0.03 MCG/KG/MIN 5. 185 mls/hr IV .Q24H [facility] Rx#:[id number] Vasopressin 20 unit In 29.988 Sodium Chloride 0.9% 50 ml @ 0.03 UNITS/MIN 4.59 mls/hr IV .Q11H7M [facility] Rx# :[id number] cefTRIAXone 2 gm In 50 Sodium Chloride 0.9% 50 ml @ 100 mls/hr IVPB Q24HR [facility] Rx#:[id number] propofoL 1,000 mg In 7.348 124.397 Empty Bag 1 bag @ 15 MCG/ KG/MIN 4.082 mls/hr IV . Q24H [facility] Rx#:[id number] propofoL 1,000 mg In 2.608 Empty Bag 1 bag @ 15 MCG/ KG/MIN 4.082 mls/hr IV . Q24H [facility] Rx#:[id number] Output: Urine 120 395 110 Other: Voiding Method Indwelling Catheter Indwelling Catheter ABP, PAP, CO, CI - Last Documented Arterial Blood Pressure 101/83 - Exam Calm and comfortable, intubated on mechanical ventilator. Orogastric and orotracheal tube are both in place. Currently on propofol. Grimaces to painful stimulation. Moving all 4 extremities without limitation. No seizure activity has been noted. HEENT examination is grossly unremarkable. Mucous membranes are moist. No oral lesions. Neck supple. Full range of motion. No adenopathy thyromegaly or neck vein distention. Cardiovascular examination reveals regular rhythm rate. S1-S2 normal. No S3 or S4. No discernible murmur noted. Lungs reveal scattered bilateral rhonchi and wheezes. Breath sounds are diminished. No crackles. Breath sounds are equal. Abdomen soft bowel sounds are heard. No masses or tenderness. Extremities are intact. No cyanosis clubbing or edema. Skin is without rash or lesion. Neurologic examination is difficult to assess. - Labs CBC & Chem 7: 04/24/24 05:10 04/24/24 05:10 Labs: Abnormal Lab Results - Last 24 Hours (Table) 04/23/24 04/23/24 04/23/24 Range/Units 11:23 11:40 11:40 Hgb 11.2 L (11.4-16.0) gm/dL MCHC (31.0-37.0) g/dL Lymphocytes # 0.6 L (1.0-4.8) k/uL D-Dimer 1.74 H (<0.60) mg/L FEU ABG pH (7.35-7.45) ABG pCO2 (35-45) mmHg ABG pO2 (83-108) mmHg ABG HCO3 (21-25) mmol/L ABG Total CO2 (19-24) mmol/L ABG O2 Saturation (94-97) % Sodium (137-145) mmol/L Chloride (98-107) mmol/L Carbon Dioxide (22-30) mmol/L Creatinine (0.52-1.04) mg/dL Glucose (74-99) mg/dL POC Glucose (mg/dL) 138 H (70-110) mg/dL Total Protein (6.3-8.2) g/dL 04/23/24 04/23/24 04/23/24 Range/Units 11:40 15:07 16:33 Hgb (11.4-16.0) gm/dL MCHC (31.0-37.0) g/dL Lymphocytes # (1.0-4.8) k/uL D-Dimer (<0.60) mg/L FEU ABG pH 7.28 L (7.35-7.45) ABG pCO2 60 H (35-45) mmHg ABG pO2 >420 H (83-108) mmHg ABG HCO3 28 H (21-25) mmol/L ABG Total CO2 30 H (19-24) mmol/L ABG O2 Saturation >100.0 H (94-97) % Sodium 135 L (137-145) mmol/L Chloride 95 L (98-107) mmol/L Carbon Dioxide 34 H (22-30) mmol/L Creatinine 0.42 L (0.52-1.04) mg/dL Glucose 144 H (74-99) mg/dL POC Glucose (mg/dL) 153 H (70-110) mg/dL Total Protein 6.1 L (6.3-8.2) g/dL 04/23/24 04/24/24 04/24/24 Range/Units 23:28 05:09 05:10 Hgb (11.4-16.0) gm/dL MCHC 30.7 L (31.0-37.0) g/dL Lymphocytes # 0.4 L (1.0-4.8) k/uL D-Dimer (<0.60) mg/L FEU ABG pH 7.30 L (7.35-7.45) ABG pCO2 52 H (35-45) mmHg ABG pO2 190 H (83-108) mmHg ABG HCO3 (21-25) mmol/L ABG Total CO2 27 H (19-24) mmol/L ABG O2 Saturation 99.9 H (94-97) % Sodium (137-145) mmol/L Chloride (98-107) mmol/L Carbon Dioxide (22-30) mmol/L Creatinine (0.52-1.04) mg/dL Glucose (74-99) mg/dL POC Glucose (mg/dL) 162 H (70-110) mg/dL Total Protein (6.3-8.2) g/dL 04/24/24 04/24/24 Range/Units 05:10 05:25 Hgb (11.4-16.0) gm/dL MCHC (31.0-37.0) g/dL Lymphocytes # (1.0-4.8) k/uL D-Dimer (<0.60) mg/L FEU ABG pH (7.35-7.45) ABG pCO2 (35-45) mmHg ABG pO2 (83-108) mmHg ABG HCO3 (21-25) mmol/L ABG Total CO2 (19-24) mmol/L ABG O2 Saturation (94-97) % Sodium 133 L (137-145) mmol/L Chloride (98-107) mmol/L Carbon Dioxide (22-30) mmol/L Creatinine 0.42 L (0.52-1.04) mg/dL Glucose 156 H (74-99) mg/dL POC Glucose (mg/dL) 149 H (70-110) mg/dL Total Protein (6.3-8.2) g/dL Assessment and Plan Plan: Acute hypoxemic respiratory failure, secondary to COPD exacerbation. CT of the chest was noted and there is no evidence of any airspace disease or consolidation. No suspicious lung nodules or lesions. No significant mediastinal lymphadenopathy. The patient has moderate to severe emphysematous changes and she has evidence of endobronchial valve insertion in the left upper lobe that was done in outside facility. She has some atelectatic changes in the left upper lobe medially. No evidence of any airspace disease or pneumonia. Viral screen has been negative. Remains intubated on mechanical ventilator. Advanced COPD with diffuse emphysematous changes and possible previous endobronchial valve insertion, details are not known. Hypotension, post intubation. Likely hypovolemic in nature. Currently on low- dose norepinephrine and vasopressin. Will start the patient IV fluids. Previous history of a postinflammatory scar in the right upper lobe and a previous PET/CT that was done back in 2020 showed no significant metabolic activity Altered mentation with evidence of multiple lesions in the brain without any vasogenic edema. No mass effect. Those lesions are measuring 11 to 12 mm in size in the right frontal and left frontal and another 1 posteriorly. Obviously, metastatic disease is of a concern. Prior history of heavy tobacco use. Plan: Continue ventilator support. Continue bronchodilators. Continue IV Decadron. IV Rocephin and Zithromax as empiric antibiotic coverage. Blood cultures Sputum cultures A metastatic workup needs to be initiated. I would suggest obtaining a CAT scan of the abdomen and pelvis to rule out any intra-abdominal source of malignancy. Obtain neurology consultation May benefit from Kaitlin for seizure prophylaxis. Will discuss this with neurology. IV fluids normal saline at rate of 75 cc an hour Wean off pressors and discontinue Will obtain records from outside facility regarding her previous treatment and details of her medical history. Lites have been established Condition is critical Will continue to follow make further recommendations based on her progress. This evaluation was done in 45 minutes. Time with Patient: Greater than 30
[2024-04-24] MEDS: ACETAMINOPHEN TAB 325 MG TAB PO PRN (15:55)
[2024-04-24] MEDS: HYDROmorphone 0.5 MG/0.5 ML SYRINGE IVP PRN (16:17)
[2024-04-24 17:27] LABS: Glucose,Whole Blood 143 mg/dL (70-110)
--- NOTE | 2024-04-24 19:13 | P.HPIM ---
History of Present Illness H&P Date: 04/24/24 Spring Burdick, is a 63-year-old female patient of Dr. Gibbs who presented to [facility] emergency room with a chief complaint of She was evaluated in the emergency room vital examination on presentation revealed a temperature of 95.5 pulse 114 respiration 24 blood pressure 88/65 pulse ox 98% on 4 L nasal cannula Laboratory data revealed a white blood count of 8.5 hemoglobin 11.2 platelet count 261 D-dimer 1.74 sodium 135 potassium 3.9 BUN 9 creatinine 0.42 glucose 144 troponin 0.012 influenza A and B RSV and COVID PCR are all negative Testing in the emergency room revealed chest x-ray done in the emergency room revealed left-sided airspace opacities suggestive of pneumonia, CT scan of the brain revealed scattered areas of tavera-white matter vasogenic edema with possible masses in the right frontal lobe and left posterior frontal lobe and right occipital parietal regions finding concerning for metastatic disease. During her stay in the emergency room patient had hypotension, she was resuscitated with IV fluid, however her condition continued to worsen, she became unresponsive, she was intubated sedated and admitted to intensive care unit, he was started on IV steroid. Pulmonary and neurology consultation were requested. Past Medical History Past Medical History: COPD Additional Past Medical History / Comment(s): sinus polyp History of Any Multi-Drug Resistant Organisms: None Reported Additional Past Surgical History / Comment(s): dermabrasion cheek, sinus polyp removal Past Anesthesia/Blood Transfusion Reactions: No Reported Reaction Past Psychological History: No Psychological Hx Reported Smoking Status: Former smoker Past Alcohol Use History: None Reported Past Drug Use History: None Reported - Past Family History Mother Family Medical History: COPD Father Family Medical History: Myocardial Infarction ([place]) Medications and Allergies Home Medications Medication Instructions Recorded Confirmed Type Ipratropium-Albuterol Nebulize 3 ml INHALATION RT-QID 06/01/20 04/23/24 History [Duoneb 0.5 mg-3 mg/3 ml Soln] Azithromycin [Zithromax Z Pack] See Taper PO DIRECTED 04/23/24 04/23/24 History Doxepin [SINEquan] 25 mg PO HS 04/23/24 04/23/24 History Ensifentrine [Ohtuvayre] 3 mg INHALATION DIRECTED 04/23/24 04/23/24 History Montelukast [Singulair] 10 mg PO HS 04/23/24 04/23/24 History predniSONE 5 mg PO DAILY 04/23/24 04/23/24 History Allergies Allergy/AdvReac Type Severity Reaction Status Date / Time No Known Allergies Allergy Verified 04/23/24 16:17 Physical Exam Vitals: Vital Signs Temp Pulse Resp BP Pulse Ox FiO2 04/24/24 13:00 100 28 H 105/61 100 04/24/24 12:45 98 28 H 107/68 100 04/24/24 12:30 102 H 28 H 95/71 100 04/24/24 12:16 101 H 28 H 04/24/24 12:15 97 28 H 104/67 99 04/24/24 12:12 50 04/24/24 12:00 98.0 F 87 28 H 108/69 100 50 04/24/24 11:45 86 28 H 126/77 100 04/24/24 11:30 85 28 H 128/75 100 04/24/24 11:15 84 28 H 125/75 100 04/24/24 11:00 84 28 H 133/77 100 04/24/24 10:45 81 28 H 138/79 100 04/24/24 10:30 84 28 H 135/82 100 04/24/24 10:15 86 28 H 112/71 100 04/24/24 10:00 81 28 H 111/70 99 04/24/24 09:45 81 28 H 97/63 99 04/24/24 09:30 88 28 H 94/59 98 04/24/24 09:15 93 28 H 94/63 99 04/24/24 09:00 94 28 H 114/76 99 04/24/24 08:46 95 28 H 04/24/24 08:45 93 28 H 109/70 99 04/24/24 08:39 95 28 H 04/24/24 08:32 50 04/24/24 08:30 92 28 H 112/72 99 04/24/24 08:15 97.8 F 90 28 H 129/80 99 50 04/24/24 08:00 87 28 H 122/74 99 04/24/24 07:45 86 28 H 123/76 99 04/24/24 07:30 86 28 H 126/73 99 04/24/24 07:15 89 28 H 111/75 99 02/17/25 07:00 96 28 H 118/74 100 04/24/24 06:45 91 28 H 122/73 99 04/24/24 06:30 90 28 H 113/77 99 04/24/24 06:15 94 28 H 114/71 100 04/24/24 06:00 90 38 H 116/73 100 04/24/24 05:45 90 27 H 103/66 99 04/24/24 05:30 109 H 28 H 110/74 98 04/24/24 05:15 99 28 H 110/74 99 04/24/24 05:00 94 28 H 94/68 99 04/24/24 04:55 90 04/24/24 04:45 105 H 28 H 111/72 98 04/24/24 04:39 50 04/24/24 04:38 92 04/24/24 04:30 90 28 H 108/76 99 04/24/24 04:15 92 28 H 108/78 99 04/24/24 04:00 98.3 F 93 28 H 95/67 99 50 04/24/24 03:45 97 28 H 93/70 99 04/24/24 03:30 99 28 H 91/64 99 04/24/24 03:15 98 28 H 86/63 99 04/24/24 03:00 99 28 H 87/69 99 04/24/24 02:45 95 13 95 04/24/24 02:30 91 28 H 100/65 100 04/24/24 02:15 88 28 H 105/73 99 04/24/24 02:00 86 28 H 102/70 99 04/24/24 01:45 87 28 H 103/69 99 04/24/24 01:30 87 28 H 103/70 99 04/24/24 01:15 90 28 H 102/73 99 04/24/24 01:00 87 28 H 100/71 99 04/24/24 00:45 90 28 H 101/70 99 04/24/24 00:30 90 28 H 93/69 99 04/24/24 00:15 92 28 H 100/66 99 04/24/24 00:09 92 28 H 100/66 100 04/24/24 00:00 97.6 F 89 28 H 103/70 100 50 04/23/24 23:58 88 04/23/24 23:55 50 04/23/24 23:45 90 28 H 101/74 99 04/23/24 23:30 92 28 H 102/72 100 04/23/24 23:15 90 28 H 98/71 99 04/23/24 23:00 91 28 H 103/72 99 04/23/24 22:45 92 28 H 105/73 99 04/23/24 22:30 92 28 H 106/71 99 04/23/24 22:15 90 28 H 107/72 99 04/23/24 22:00 92 28 H 110/72 99 04/23/24 21:45 94 28 H 109/71 99 04/23/24 21:30 96 28 H 109/75 100 04/23/24 21:15 96 28 H 101/74 100 04/23/24 21:01 98 04/23/24 21:00 97 28 H 104/75 100 04/23/24 20:47 50 04/23/24 20:46 101 H 04/23/24 20:45 98 28 H 105/74 100 04/23/24 20:30 97 28 H 115/78 100 04/23/24 20:15 94 28 H 107/78 100 04/23/24 20:00 97.7 F 102 H 28 H 112/78 100 50 04/23/24 19:45 101 H 28 H 113/77 100 04/23/24 19:30 101 H 28 H 112/74 100 04/23/24 19:15 101 H 28 H 120/78 100 04/23/24 19:00 96 28 H 117/79 100 04/23/24 18:45 98 28 H 108/78 100 04/23/24 18:30 101 H 28 H 111/75 100 04/23/24 18:15 101 H 28 H 107/76 100 04/23/24 18:00 101 H 28 H 100/72 100 04/23/24 17:45 101 H 28 H 96/70 100 04/23/24 17:35 50 04/23/24 17:30 105 H 28 H 88/69 100 04/23/24 17:15 110 H 28 H 100 04/23/24 17:00 102 H 28 H 100 04/23/24 16:45 97.3 F L 101 H 28 H 96/63 100 50 04/23/24 16:36 102 H 24 77/53 100 04/23/24 16:10 50 04/23/24 16:08 108 H 28 H 78/57 100 04/23/24 15:25 50 04/23/24 14:59 98 18 81/54 100 04/23/24 14:55 96.1 F L 98 20 79/30 97 04/23/24 14:50 100 04/23/24 14:45 99 88/54 04/23/24 14:40 104 H 14 77/46 04/23/24 14:30 105 H 47/32 04/23/24 14:25 122 H 12 80/51 91 L 04/23/24 14:20 6 L 04/23/24 14:15 97.8 F 143 H 38 H 116/66 04/23/24 14:12 100 04/23/24 14:00 92 90/50 04/23/24 13:34 94.5 F L 101 H 20 99/60 93 L 04/23/24 13:15 95.2 F L 82/49 Intake and Output 04/23/24 04/24/24 04/24/24 22:59 06:59 14:59 Intake Total 364.956 513.616 9154.646 Output Total 275 240 230 Balance 89.956 508.535 9989.646 Intake: IV 69 104 81 .9 @ 10ml 60 80 60 pressure bag 9 24 21 Intake, IV Titration 295.956 798.959 7044.646 Amount Norepinephrine 4 mg In 254.000 Sodium Chloride 0.9% 250 ml @ 0.03 MCG/KG/MIN 5. 185 mls/hr IV .Q24H BINA Rx#:[id number] Norepinephrine 4 mg In 163.888 90.555 Sodium Chloride 0.9% 250 ml @ 0.03 MCG/KG/MIN 5. 185 mls/hr IV .Q24H BINA Rx#:[id number] Sodium Chloride 0.9% 1, 75 000 ml @ 75 mls/hr IV . [id number] BINA Rx#:[id number] Sodium Chloride 0.9% 1, 1000 000 ml @ 999 mls/hr IV . Q1H1M ONE Rx#:[id number] Vasopressin 20 unit In 29.988 51 Sodium Chloride 0.9% 50 ml @ 0.03 UNITS/MIN 4.59 mls/hr IV .Q11H7M BINA Rx# :[id number] cefTRIAXone 2 gm In 50 Sodium Chloride 0.9% 50 ml @ 100 mls/hr IVPB Q24HR BINA Rx#:[id number] propofoL 1,000 mg In 41.956 89.789 Empty Bag 1 bag @ 15 MCG/ KG/MIN 4.082 mls/hr IV . Q24H BINA Rx#:[id number] propofoL 1,000 mg In 65.091 Empty Bag 1 bag @ 15 MCG/ KG/MIN 4.082 mls/hr IV . Q24H BINA Rx#:[id number] Output: Urine 275 240 230 Other: Voiding Method Indwelling Catheter Indwelling Catheter Weight 45.359 kg 59.2 kg 59.2 kg ABP, PAP, CO, CI - Last 8 Hours Arterial Blood Pressure 106/66 Arterial Blood Pressure 117/72 Arterial Blood Pressure 117/73 Arterial Blood Pressure 108/77 Arterial Blood Pressure 101/83 Arterial Blood Pressure 85/69 Arterial Blood Pressure 113/63 Arterial Blood Pressure 111/62 Arterial Blood Pressure 117/64 Arterial Blood Pressure 103/60 Arterial Blood Pressure 90/64 Arterial Blood Pressure 81/66 Arterial Blood Pressure 95/64 Arterial Blood Pressure 86/65 Arterial Blood Pressure 79/65 Arterial Blood Pressure 92/51 Arterial Blood Pressure 74/65 Patient is intubated sedated maintained on mechanical ventilation HEENT head normocephalic and atraumatic Neck is supple no JVD no goiter no lymphadenopathy Chest exam reveals a scattered crackles bilaterally no wheezing Cardiac exam reveals regular heart sounds no gallops no murmurs Abdomen is soft nontender no organomegaly Extremity exam reveals no edema no cyanosis or clubbing Results CBC & Chem 7: 04/24/24 05:10 04/24/24 05:10 Labs: Abnormal Lab Results - Last 24 Hours (Table) 04/23/24 04/23/24 04/23/24 Range/Units 15:07 16:33 23:28 MCHC (31.0-37.0) g/dL Lymphocytes # (1.0-4.8) k/uL ABG pH 7.28 L (7.35-7.45) ABG pCO2 60 H (35-45) mmHg ABG pO2 >420 H (83-108) mmHg ABG HCO3 28 H (21-25) mmol/L ABG Total CO2 30 H (19-24) mmol/L ABG O2 Saturation >100.0 H (94-97) % Sodium (137-145) mmol/L Creatinine (0.52-1.04) mg/dL Glucose (74-99) mg/dL POC Glucose (mg/dL) 153 H 162 H (70-110) mg/dL 04/24/24 04/24/24 04/24/24 Range/Units 05:09 05:10 05:10 MCHC 30.7 L (31.0-37.0) g/dL Lymphocytes # 0.4 L (1.0-4.8) k/uL ABG pH 7.30 L (7.35-7.45) ABG pCO2 52 H (35-45) mmHg ABG pO2 190 H (83-108) mmHg ABG HCO3 (21-25) mmol/L ABG Total CO2 27 H (19-24) mmol/L ABG O2 Saturation 99.9 H (94-97) % Sodium 133 L (137-145) mmol/L Creatinine 0.42 L (0.52-1.04) mg/dL Glucose 156 H (74-99) mg/dL POC Glucose (mg/dL) (70-110) mg/dL 04/24/24 04/24/24 Range/Units 05:25 12:07 MCHC (31.0-37.0) g/dL Lymphocytes # (1.0-4.8) k/uL ABG pH (7.35-7.45) ABG pCO2 (35-45) mmHg ABG pO2 (83-108) mmHg ABG HCO3 (21-25) mmol/L ABG Total CO2 (19-24) mmol/L ABG O2 Saturation (94-97) % Sodium (137-145) mmol/L Creatinine (0.52-1.04) mg/dL Glucose (74-99) mg/dL POC Glucose (mg/dL) 149 H 143 H (70-110) mg/dL Thrombosis Risk Factor Assmnt - Choose All That Apply Any of the Below Risk Factors Present?: Yes Each Factor Represents 1 point: Abnormal pulmonary function (COPD) Other Risk Factors: Yes Each Risk Factor Represents 2 Points: Age 61-74 years Other congenital or acquired thrombophilia - If yes, enter type in comment: No Thrombosis Risk Factor Assessment Total Risk Factor Score: 3 Thrombosis Risk Factor Assessment Level: Moderate Risk Assessment and Plan Plan: Acute hypoxic respiratory failure Acute exacerbation of chronic obstructive pulmonary disease Hypotension with hypovolemic shock on presentation Altered mentation on presentation Evidence of metastatic brain lesions At this time patient is intubated sedated maintained on mechanical ventilation She was started on IV fluid and IV antibiotics Pulmonary and neurology consultation requested Prognosis is guarded will follow closely
--- NOTE | 2024-04-24 19:25 | P.CNNES ---
History of Present Illness Consult date: 04/24/24 Requesting physician: Mireille Oakley Reason for Consult: altered MS, head CT done History of Present Illness: Patient is a 63-year-old female came to the hospital by ambulance yesterday at 11:08 AM for difficulty breathing and lethargy. When EMS arrived, patient was alert and orient x 4, seated on the bed receiving an albuterol updraft. She was anxious stating she cannot breathe. She had nasal cannula on 2 L/min. She has COPD and emphysema. Patient was recently diagnosed with influenza and is taking prednisone and azithromycin. Twelve-lead EKG showed sinus tachycardia. Lung sounds are extremely diminished. Patient complained of chronic back discomfort during transport. Patient's vitals at the scene was blood pressure 104/59, pulse rate 120, saturation 94% respiration 24. Stroke scale negative. Patient's blood pressure went down to 83/43. On arrival, blood pressure was 88/65, pulse rate 114 temperature 95.5 rectal. Patient has been afebrile. Blood test shows normal CBC, PT PTT,. Initial ABG showed pH of 7.28, pCO2 60, saturation 100. Most recent ABG with pH of 7.30, pCO2 52, pO2 190, saturation 99.9%. Sodium 133, renal functions normal. Influenza, RSV and coronavirus PCR negative. EKG showed sinus tachycardia. Chest x-ray showed left sided airspace opacities, correlate for pneumonia. Repeat CT head performed yesterday showed multiple enhancing tavera-white matter junction masses as seen on prior CT are more pronounced with recent contrast. Findings remain concerning for metastatic disease. I personally reviewed CT head and agree with the findings. I spoke to the patient's nurse, who mentions that patient has no previous history of any cancer. She mentions that when propofol was at 50 mcg/kg's per minute, she was having some coughing reaction, therefore the propofol has been increased to 70 mcg/kg's per minute. She is still grimacing, questionable admitting to having some back pain. Patient currently also on norepinephrine 0.04 mcg/kg's per minute. Also on vasopressin, 0.01 units/min. No seizure-like activity has been witnessed. Review of Systems ROS unobtainable: due to endotracheal tube, due to mental status Past Medical History Past Medical History: COPD Additional Past Medical History / Comment(s): sinus polyp History of Any Multi-Drug Resistant Organisms: None Reported Additional Past Surgical History / Comment(s): dermabrasion cheek, sinus polyp removal Past Anesthesia/Blood Transfusion Reactions: No Reported Reaction Past Psychological History: No Psychological Hx Reported Smoking Status: Former smoker Past Alcohol Use History: None Reported Past Drug Use History: None Reported - Past Family History Mother Family Medical History: COPD Father Family Medical History: Myocardial Infarction ([place]) Medications and Allergies Home Medications Medication Instructions Recorded Confirmed Type Ipratropium-Albuterol Nebulize 3 ml INHALATION RT-QID 06/01/20 04/23/24 History [Duoneb 0.5 mg-3 mg/3 ml Soln] Azithromycin [Zithromax Z Pack] See Taper PO DIRECTED 04/23/24 04/23/24 History Doxepin [SINEquan] 25 mg PO HS 04/23/24 04/23/24 History Ensifentrine [Ohtuvayre] 3 mg INHALATION DIRECTED 04/23/24 04/23/24 History Montelukast [Singulair] 10 mg PO HS 04/23/24 04/23/24 History predniSONE 5 mg PO DAILY 04/23/24 04/23/24 History Allergies Allergy/AdvReac Type Severity Reaction Status Date / Time No Known Allergies Allergy Verified 04/23/24 16:17 Physical Examination - Vital Signs Vital Signs: Vital Signs Temp Pulse Resp BP Pulse Ox FiO2 04/24/24 16:15 98.5 F 99 28 H 110/70 98 04/24/24 16:00 97 29 H 115/77 100 04/24/24 15:50 102 H 28 H 04/24/24 15:45 96 44 H 108/48 99 04/24/24 15:35 105 H 28 H 04/24/24 15:30 94 28 H 115/72 100 04/24/24 15:22 50 04/24/24 15:15 96 28 H 108/65 100 04/24/24 15:00 96 28 H 114/67 100 04/24/24 14:45 93 28 H 91/60 100 04/24/24 14:30 102 H 28 H 94/51 100 04/24/24 14:15 101 H 28 H 109/66 100 04/24/24 14:00 92 28 H 92/65 100 04/24/24 13:45 100 28 H 114/70 100 04/24/24 13:30 93 28 H 108/69 100 04/24/24 13:15 99 28 H 100/56 99 04/24/24 13:00 100 28 H 105/61 100 04/24/24 12:45 98 28 H 107/68 100 04/24/24 12:30 100 28 H 95/71 100 04/24/24 12:16 101 H 28 H 04/24/24 12:15 97 28 H 104/67 99 50 04/24/24 12:12 50 04/24/24 12:00 98.0 F 87 28 H 108/69 100 50 04/24/24 11:45 86 28 H 126/77 100 04/24/24 11:30 85 28 H 128/75 100 04/24/24 11:15 84 28 H 125/75 100 04/24/24 11:00 84 28 H 133/77 100 04/24/24 10:45 81 28 H 138/79 100 04/24/24 10:30 84 28 H 135/82 100 04/24/24 10:15 86 28 H 112/71 100 04/24/24 10:00 81 28 H 111/70 99 04/24/24 09:45 81 28 H 97/63 99 04/24/24 09:30 88 28 H 94/59 98 04/24/24 09:15 93 28 H 94/63 99 04/24/24 09:00 94 28 H 114/76 99 04/24/24 08:46 95 28 H 04/24/24 08:45 93 28 H 109/70 99 04/24/24 08:39 95 28 H 04/24/24 08:32 50 04/24/24 08:30 92 28 H 112/72 99 04/24/24 08:15 97.8 F 90 28 H 129/80 99 50 04/24/24 08:00 87 28 H 122/74 99 50 04/24/24 07:45 86 28 H 123/76 99 04/24/24 07:30 86 28 H 126/73 99 04/24/24 07:15 89 28 H 111/75 99 04/24/24 07:00 96 28 H 118/74 100 04/24/24 06:45 91 28 H 122/73 99 04/24/24 06:30 90 28 H 113/77 99 04/24/24 06:15 94 28 H 114/71 100 04/24/24 06:00 90 38 H 116/73 100 04/24/24 05:45 90 27 H 103/66 99 04/24/24 05:30 109 H 28 H 110/74 98 04/24/24 05:15 99 28 H 110/74 99 04/24/24 05:00 94 28 H 94/68 99 04/24/24 04:55 90 04/24/24 04:45 105 H 28 H 111/72 98 04/24/24 04:39 50 04/24/24 04:38 92 04/24/24 04:30 90 28 H 108/76 99 04/24/24 04:15 92 28 H 108/78 99 04/24/24 04:00 98.3 F 93 28 H 95/67 99 50 04/24/24 03:45 97 28 H 93/70 99 04/24/24 03:30 99 28 H 91/64 99 04/24/24 03:15 98 28 H 86/63 99 04/24/24 03:00 99 28 H 87/69 99 04/24/24 02:45 95 13 95 04/24/24 02:30 91 28 H 100/65 100 04/24/24 02:15 88 28 H 105/73 99 04/24/24 02:00 86 28 H 102/70 99 04/24/24 01:45 87 28 H 103/69 99 04/24/24 01:30 87 28 H 103/70 99 04/24/24 01:15 90 28 H 102/73 99 04/24/24 01:00 87 28 H 100/71 99 04/24/24 00:45 90 28 H 101/70 99 04/24/24 00:30 90 28 H 93/69 99 04/24/24 00:15 92 28 H 100/66 99 04/24/24 00:09 92 28 H 100/66 100 04/24/24 00:00 97.6 F 89 28 H 103/70 100 50 04/23/24 23:58 88 04/23/24 23:55 50 04/23/24 23:45 90 28 H 101/74 99 04/23/24 23:30 92 28 H 102/72 100 04/23/24 23:15 90 28 H 98/71 99 04/23/24 23:00 91 28 H 103/72 99 04/23/24 22:45 92 28 H 105/73 99 04/23/24 22:30 92 28 H 106/71 99 04/23/24 22:15 90 28 H 107/72 99 04/23/24 22:00 92 28 H 110/72 99 04/23/24 21:45 94 28 H 109/71 99 04/23/24 21:30 96 28 H 109/75 100 04/23/24 21:15 96 28 H 101/74 100 04/23/24 21:01 98 04/23/24 21:00 97 28 H 104/75 100 04/23/24 20:47 50 04/23/24 20:46 101 H 04/23/24 20:45 98 28 H 105/74 100 04/23/24 20:30 97 28 H 115/78 100 04/23/24 20:15 94 28 H 107/78 100 04/23/24 20:00 97.7 F 102 H 28 H 112/78 100 50 04/23/24 19:45 101 H 28 H 113/77 100 04/23/24 19:30 101 H 28 H 112/74 100 04/23/24 19:15 101 H 28 H 120/78 100 04/23/24 19:00 96 28 H 117/79 100 04/23/24 18:45 98 28 H 108/78 100 04/23/24 18:30 101 H 28 H 111/75 100 04/23/24 18:15 101 H 28 H 107/76 100 04/23/24 18:00 101 H 28 H 100/72 100 Intake and Output 04/24/24 04/24/24 04/24/24 06:59 14:59 22:59 Intake Total 611.849 6625.646 372.419 Output Total 240 270 100 Balance 832.973 2233.646 272.419 Intake: IV 104 84 9 .9 @ 10ml 80 60 pressure bag 24 24 9 Intake, IV Titration 812.437 3101.646 273.419 Amount Norepinephrine 4 mg In 163.888 90.555 27.075 Sodium Chloride 0.9% 250 ml @ 0.03 MCG/KG/MIN 5. 185 mls/hr IV .Q24H BINA Rx#:[id number] Sodium Chloride 0.9% 1, 150 225 000 ml @ 75 mls/hr IV . [id number] BINA Rx#:[id number] Sodium Chloride 0.9% 1, 1000 000 ml @ 999 mls/hr IV . Q1H1M ONE Rx#:[id number] Vasopressin 20 unit In 29.988 51 21.344 Sodium Chloride 0.9% 50 ml @ 0.03 UNITS/MIN 4.59 mls/hr IV .Q11H7M BINA Rx# :[id number] cefTRIAXone 2 gm In 50 Sodium Chloride 0.9% 50 ml @ 100 mls/hr IVPB Q24HR BINA Rx#:[id number] propofoL 1,000 mg In 89.789 Empty Bag 1 bag @ 15 MCG/ KG/MIN 4.082 mls/hr IV . Q24H BINA Rx#:[id number] propofoL 1,000 mg In 65.091 Empty Bag 1 bag @ 15 MCG/ KG/MIN 4.082 mls/hr IV . Q24H BIAN Rx#:[id number] Tube Feeding 20 60 Other 30 Output: Urine 240 270 100 Other: Voiding Method Indwelling Catheter Indwelling Catheter Weight 59.2 kg 59.2 kg ABP, PAP, CO, CI - Last 8 Hours Arterial Blood Pressure 104/67 Arterial Blood Pressure 103/63 Arterial Blood Pressure 129/71 Arterial Blood Pressure 110/66 Arterial Blood Pressure 115/69 Arterial Blood Pressure 115/66 Arterial Blood Pressure 129/71 Arterial Blood Pressure 121/74 Arterial Blood Pressure 90/55 Arterial Blood Pressure 121/65 Arterial Blood Pressure 107/64 Arterial Blood Pressure 126/74 Arterial Blood Pressure 109/66 Arterial Blood Pressure 106/66 Arterial Blood Pressure 117/72 Arterial Blood Pressure 117/73 Arterial Blood Pressure 108/77 Arterial Blood Pressure 101/83 Arterial Blood Pressure 85/69 Patient is an elderly female, appears somewhat cachectic, intubated, sedated on propofol 70 mcg/g/min. Also on vasopressin 0.01 units/min and norepinephrine 0.04 mcg/g/min. Patient is severely encephalopathic, sedated. No seizure-like activity noticed. On cranial nerve examination, pupils are equal, round and reacting to light, oculocephalics are present, corneals present. Visual staples cannot be assessed. Face cannot be assessed. Patient does have a gag and cough. Patient is breathing over the ventilator. On muscle strength testing, patient is not responding to calling her name, or wi th painful stimuli at least on my examination. No grimacing. Deep tendon reflexes are asymmetric (right/left) biceps 0/1+, brachioradialis 0/1+, knees 1/1 and plantars are flat, but has nonsustained clonus bilaterally, right worse. Sensory to touch or pinprick cannot be assessed. Cerebellar function cannot be assessed. Tone and bulk of muscles normal. Gait deferred.. On general examination, there is no carotid bruit or murmur, S1-S2 audible. Chest revealed scattered bilateral rhonchi and wheezes. Breath sounds are diminished. Abdomen is soft nontender. No organomegaly, bowel sounds present. Peripheral pulses are present. No peripheral edema. Results - Laboratory Findings CBC and BMP: 04/24/24 05:10 04/24/24 05:10 Abnormal Lab Findings: Abnormal Labs 04/23/24 04/23/24 04/23/24 11:23 11:40 11:40 Hgb 11.2 L MCHC Lymphocytes # 0.6 L D-Dimer 1.74 H ABG pH ABG pCO2 ABG pO2 ABG HCO3 ABG Total CO2 ABG O2 Saturation Sodium Chloride Carbon Dioxide Creatinine Glucose POC Glucose (mg/dL) 138 H Total Protein 04/23/24 04/23/24 04/23/24 11:40 15:07 16:33 Hgb MCHC Lymphocytes # D-Dimer ABG pH 7.28 L ABG pCO2 60 H ABG pO2 >420 H ABG HCO3 28 H ABG Total CO2 30 H ABG O2 Saturation >100.0 H Sodium 135 L Chloride 95 L Carbon Dioxide 34 H Creatinine 0.42 L Glucose 144 H POC Glucose (mg/dL) 153 H Total Protein 6.1 L 04/23/24 04/24/24 04/24/24 23:28 05:09 05:10 Hgb MCHC 30.7 L Lymphocytes # 0.4 L D-Dimer ABG pH 7.30 L ABG pCO2 52 H ABG pO2 190 H ABG HCO3 ABG Total CO2 27 H ABG O2 Saturation 99.9 H Sodium Chloride Carbon Dioxide Creatinine Glucose POC Glucose (mg/dL) 162 H Total Protein 04/24/24 04/24/24 04/24/24 05:10 05:25 12:07 Hgb MCHC Lymphocytes # D-Dimer ABG pH ABG pCO2 ABG pO2 ABG HCO3 ABG Total CO2 ABG O2 Saturation Sodium 133 L Chloride Carbon Dioxide Creatinine 0.42 L Glucose 156 H POC Glucose (mg/dL) 149 H 143 H Total Protein 04/24/24 17:26 Hgb MCHC Lymphocytes # D-Dimer ABG pH ABG pCO2 ABG pO2 ABG HCO3 ABG Total CO2 ABG O2 Saturation Sodium Chloride Carbon Dioxide Creatinine Glucose POC Glucose (mg/dL) 143 H Total Protein Assessment and Plan Assessment: * Abnormal CT head with evidence of at least 3, perhaps 4 contrast-enhancing rounded lesions at the tavera-white junction. Suspect metastatic disease. Evaluate for primary. * Ventilator dependent respiratory failure, on mechanical ventilation * Metabolic encephalopathy * COPD exacerbation * Elevated pCO2 60 on arrival. * Hyponatremia * Hypotension, improved. Patient on norepinephrine and vasopressin * History of tobacco use Plan: * We will check EEG to evaluate for encephalopathy, rule out underlying epil eptiform activity. No seizures have been witnessed. * Consider CT of abdomen pelvis to evaluate for any primary tumor. CTA of the chest showed emphysema but no obvious masses in the chest. However it showed some lymph nodes in the upper abdomen retroperitoneum. * Hold off on antiepileptic medication. No seizures have been witnessed. If any seizures occur, will load with Keppra. * Treatment of underlying cardiopulmonary condition as per IM and critical care. * Patient may need MRI of the brain with and without contrast, however cannot be performed at [facility] while patient is intubated. May have to transfer to higher level of care, where MRI can be performed on mechanically ventilated patients. Then may need neurosurgical consultation. * We will try to contact family members to get collateral history. * Neurology will follow. Thank you for the consult.
[2024-04-25 01:41] LABS: Glucose,Whole Blood 147 mg/dL (70-110)
[2024-04-25 03:56] LABS: Basophils % (A) 0 %; Eosinophils % (A) 1 %; HCT 33.7 % (34.0-46.0); HGB 10.4 gm/dL (11.4-16.0); Hypochromasia Marked; Lymphocytes # (A) 0.3 k/uL (1.0-4.8); Lymphocytes % (A) 3 %; MCH 26.3 pg (25.0-35.0); MCHC 30.8 g/dL (31.0-37.0); MCV 85.3 fL (80.0-100.0); Mean Platelet Volume 7.7; Monocytes # (A) 0.3 k/uL (0-1.0); Monocytes % (A) 4 %; Neutrophils # (A) 7.3 k/uL (1.3-7.7); Neutrophils % (A) 92 %; Platelet Count 264 k/uL (150-450); RBC 3.95 m/uL (3.80-5.40); RDW 14.5 % (11.5-15.5)
[2024-04-25 04:21] LABS: ALT 112 U/L (4-34); African American GFR (CKD) >90 (>60 ml/min/1.73 sqM); Anion Gap 5 mmol/L; Blood Urea Nitrogen 16 mg/dL (7-17); Calcium 8.4 mg/dL (8.4-10.2); Carbon Dioxide 26 mmol/L (22-30); Chloride 106 mmol/L (98-107); Glucose 144 mg/dL (74-99); Non-African American GFR(CKD) >90 (>60 ml/min/1.73 sqM); Sodium 137 mmol/L (137-145); Total Bilirubin 0.4 mg/dL (0.2-1.3); Total Protein 5.3 g/dL (6.3-8.2)
[2024-04-25 04:40] LABS: AST 175 U/L (14-36); Alkaline Phosphatase 53 U/L (38-126); Potassium 4.6 mmol/L (3.5-5.1)
[2024-04-25 05:32] LABS: ABG Base Excess 0.8 mmol/L; ABG HCO3 28 mmol/L (21-25); ABG Oxygen Saturation 99.6 % (94-97); ABG PCO2 58 mmHg (35-45); ABG PH 7.29 (7.35-7.45); ABG PO2 201 mmHg (83-108); ABG TCO2 30 mmol/L (19-24)
[2024-04-25 05:47] LABS: Allen Test Performed? no
--- NOTE | 2024-04-25 07:56 | XR ---
EXAMINATION TYPE: XR chest 1V portable DATE OF EXAM: 04/25/2024 4:14 AM COMPARISON: Multiple radiographs, with the most recent on 04/24/2024 TECHNIQUE: XR chest 1V portable Portable AP radiograph of the chest. CLINICAL INDICATION:Female, 63 years old with history of Tube placement; FINDINGS: Patient is rotated which limits evaluation. Lungs/Pleura: No pleural effusion or pneumothorax. Hyperinflation. Similar scattered reticular opacit ies within the right lung. Pulmonary vascularity: Unremarkable. Heart/mediastinum: Cardiomediastinal silhouette is prominent in size. Musculoskeletal: No acute osseous pathology. Other findings: None Lines/Tubes: Endotracheal tube with distal tip 6.2 cm above the christina Nasogastric tube with its distal tip and side-port projecting under the diaphragm and projecting over the gastric lumen. IMPRESSION: 1. COPD changes with similar reticular opacities throughout the right lung likely representing pulmo nary fibrotic changes. 2. Endotracheal tube distal tip 6 cm above the christina. Recommend advancement of 3 cm. [facility], , 04/25/2024 7:54 AM
--- NOTE | 2024-04-25 10:55 | EEG ---
ELECTROENCEPHALOGRAM REPORT PREAMBLE: This is a 63-year-old female, who came to the hospital with altered mental status. The patient was found to have multiple brain mass. Rule out any epileptiform activity. Patient is sedated/unresponsive. EEG FINDINGS: This is a 21-channel digital EEG recorded with video component, utilizing 10/20 international system with referential and bipolar montages. Background consists of moderately developed and regulated, mixed frequencies of 9 to 10 hertz alpha, intermixed with some moderate amplitude mixed delta and theta slowing in bihemispheric region. Background does not seem to be reactive to eye opening or closing. Photic driving response was not clearly seen. The patient is currently on propofol 70 mcg/kg per minute. Different stages of sleep were not seen. No definitive focal or generalized epileptiform activity was seen. No electrographic seizure was recorded. IMPRESSION: This is an abnormal EEG due to background slowing of mild to moderate degree. This is suggestive of generalized cerebral dysfunction as can be seen with toxic metabolic encephalopathy or related to diffuse structural brain abnormality or medication effect. Clinical correlation is recommended. No definitive epileptiform activity was seen. MMODL / IJN: [id number] / [facility]
--- NOTE | 2024-04-25 11:00 | P.PN ---
Subjective Progress Note Date: 04/25/24 Spring Burdick, is a 63-year-old female patient of Dr. Gibbs who presented to [facility] emergency room with a chief complaint of She was evaluated in the emergency room vital examination on presentation revealed a temperature of 95.5 pulse 114 respiration 24 blood pressure 88/65 pulse ox 98% on 4 L nasal cannula Laboratory data revealed a white blood count of 8.5 hemoglobin 11.2 platelet count 261 D-dimer 1.74 sodium 135 potassium 3.9 BUN 9 creatinine 0.42 glucose 144 troponin 0.012 influenza A and B RSV and COVID PCR are all negative Testing in the emergency room revealed chest x-ray done in the emergency room revealed left-sided airspace opacities suggestive of pneumonia, CT scan of the brain revealed scattered areas of tavera-white matter vasogenic edema with possible masses in the right frontal lobe and left posterior frontal lobe and right occipital parietal regions finding concerning for metastatic disease. During her stay in the emergency room patient had hypotension, she was resuscitated with IV fluid, however her condition continued to worsen, she became unresponsive, she was intubated sedated and admitted to intensive care unit, he was started on IV steroid. Pulmonary and neurology consultation were requested. On 04/25/2024 patient remains in the ICU on mechanical ventilation. Patient also currently on Levophed for pressure support. Per nursing staff patient requiring increased amounts of sedation. Neurology and critical care services are following will consult oncology services due to concerns of metastatic lesions in brain Objective - Vital Signs Vital signs: Vital Signs Temp 98.1 F 04/25/24 08:00 Pulse 83 04/25/24 10:09 Resp 28 H 04/25/24 10:00 BP 109/62 04/25/24 10:00 Pulse Ox 100 04/25/24 10:00 FiO2 50 04/25/24 09:58 Intake & Output 04/24/24 04/25/24 04/25/24 18:59 06:59 18:59 Intake Total 2085.247 1502.466 875 Output Total 395 510 185 Balance 1690.247 992.466 690 Weight 59.2 kg 54.6 kg Intake: IV 96 861 690 .9 @ 10ml 60 Azithromycin 500 mg In 250 Sodium Chloride 0.9% 250 ml @ 250 mls/hr IVPB DAILY [facility] Rx#:[id number] Sodium Chloride 0.9% 1, 825 375 000 ml @ 75 mls/hr IV . [id number] [facility] Rx#:[id number] cefTRIAXone 2 gm In 50 Sodium Chloride 0.9% 50 ml @ 100 mls/hr IVPB Q24HR [facility] Rx#:[id number] pressure bag 36 36 15 Intake, IV Titration 1859.247 211.466 Amount Norepinephrine 4 mg In 117.630 36.466 Sodium Chloride 0.9% 250 ml @ 0.03 MCG/KG/MIN 5. 185 mls/hr IV .Q24H [facility] Rx#:[id number] Sodium Chloride 0.9% 1, 450 75 000 ml @ 75 mls/hr IV . [id number] [facility] Rx#:[id number] Sodium Chloride 0.9% 1, 1000 000 ml @ 999 mls/hr IV . Q1H1M [facility] Rx#:[id number] Vasopressin 20 unit In 76.526 Sodium Chloride 0.9% 50 ml @ 0.03 UNITS/MIN 4.59 mls/hr IV .Q11H7M [facility] Rx# :[id number] cefTRIAXone 2 gm In 50 Sodium Chloride 0.9% 50 ml @ 100 mls/hr IVPB Q24HR [facility] Rx#:[id number] propofoL 1,000 mg In 165.091 100 Empty Bag 1 bag @ 15 MCG/ KG/MIN 4.082 mls/hr IV . Q24H [facility] Rx#:[id number] Tube Feeding 100 340 155 Other 30 90 30 Output: Urine 395 510 185 Other: Voiding Method Indwelling Catheter Indwelling Catheter Indwelling Catheter ABP, PAP, CO, CI - Last Documented Arterial Blood Pressure 108/51 - Exam Patient is intubated sedated maintained on mechanical ventilation HEENT head normocephalic and atraumatic Neck is supple no JVD no goiter no lymphadenopathy Chest exam reveals a scattered crackles bilaterally no wheezing Cardiac exam reveals regular heart sounds no gallops no murmurs Abdomen is soft nontender no organomegaly Extremity exam reveals no edema no cyanosis or clubbing - Labs CBC & Chem 7: 04/25/24 03:44 04/25/24 03:44 Labs: Abnormal Lab Results - Last 24 Hours (Table) 04/24/24 04/24/24 04/25/24 Range/Units 12:07 17:26 01:29 Hgb (11.4-16.0) gm/dL Hct (34.0-46.0) % MCHC (31.0-37.0) g/dL Lymphocytes # (1.0-4.8) k/uL ABG pH (7.35-7.45) ABG pCO2 (35-45) mmHg ABG pO2 (83-108) mmHg ABG HCO3 (21-25) mmol/L ABG Total CO2 (19-24) mmol/L ABG O2 Saturation (94-97) % Creatinine (0.52-1.04) mg/dL Glucose (74-99) mg/dL POC Glucose (mg/dL) 143 H 143 H 147 H (70-110) mg/dL AST (14-36) U/L ALT (4-34) U/L Total Protein (6.3-8.2) g/dL Albumin (3.5-5.0) g/dL 04/25/24 04/25/24 04/25/24 Range/Units 03:44 03:44 04:54 Hgb 10.4 L (11.4-16.0) gm/dL Hct 33.7 L (34.0-46.0) % MCHC 30.8 L (31.0-37.0) g/dL Lymphocytes # 0.3 L (1.0-4.8) k/uL ABG pH 7.29 L (7.35-7.45) ABG pCO2 58 H (35-45) mmHg ABG pO2 201 H (83-108) mmHg ABG HCO3 28 H (21-25) mmol/L ABG Total CO2 30 H (19-24) mmol/L ABG O2 Saturation 99.6 H (94-97) % Creatinine 0.39 L (0.52-1.04) mg/dL Glucose 144 H (74-99) mg/dL POC Glucose (mg/dL) (70-110) mg/dL AST 175 H (14-36) U/L ALT 112 H (4-34) U/L Total Protein 5.3 L (6.3-8.2) g/dL Albumin 3.0 L (3.5-5.0) g/dL Microbiology - Last 24 Hours (Table) 04/24/24 16:25 Gram Stain - Preliminary Sputum Sputum Culture - Preliminary 04/23/24 11:50 Blood Culture - Preliminary Blood Assessment and Plan Plan: Acute hypoxic respiratory failure Acute exacerbation of chronic obstructive pulmonary disease Hypotension with hypovolemic shock on presentation Altered mentation on presentation Evidence of metastatic brain lesions At this time patient is intubated sedated maintained on mechanical ventilation She was started on IV fluid and IV antibiotics Pulmonary and neurology consultation requested Prognosis is guarded will follow closely
[2024-04-25] MEDS: methylPREDNISolone SOD SUCCI 125 MG/2 ML VIAL IV SCH (11:10)
[2024-04-25 11:18] LABS: Glucose,Whole Blood 182 mg/dL (70-110)
[2024-04-25] MEDS ORDERED: DEXTROSE 50% SYRINGE 50 ML IVP PRN ×2 (11:25)
[2024-04-25] MEDS: INSULIN ASPART (NovoLOG) 100 UNIT/ML VIAL SQ SCH (12:04)
[2024-04-25] MEDS: fentaNYL (PF). 1,000 MCG in SODIUM CHLORIDE 0.9% 80 ML IV SCH (12:10)
--- NOTE | 2024-04-25 12:57 | P.PN ---
Subjective Progress Note Date: 04/25/24 63-year-old female with a history of significant COPD. In fact, I believe I see her in the office for her COPD. She apparently was seen today April 23, in the emergency department, for shortness of breath, which according to the ER member began about a month ago. Is been getting progressively worse, and the patient apparently had some altered mental status according to her . The patient was initially seen in the emergency department, by Dr. Obrien, one of the ER physicians, and, the patient apparently became unresponsive, and required intubation and mechanical ventilation. The patient is currently going to be evaluated and treated, in the intensive care unit. Her past medical history is primarily positive for COPD, and she was a former smoker. She apparently also has a history of a polyp in her sinuses. Current laboratory data includes a white count 8.5, hemoglobin 11.2, hematocrit 36.1, and a platelet count of 261,000. D-dimer was 1.74. Blood gases showed a pO2 greater than 420, pCO2 of 60, the pH is 7.28. This was on 100%. I do not know the vent settings. Sodium 135, potassium 3.9, chloride 95, CO2 34, BUN 9, creatinine 0.42. Glucose was 138. N-terminal proBNP was normal. Troponin was negative. Viral screen was negative. Chest x-ray shows cardiomegaly, and may be some infiltrate in the right lower lobe. In addition the trachea appears to be torturous, and there may be some sort of a mass in the right paratracheal region. CT scan of the brain initially showed scattered areas of tavera-white matter vasogenic edema with possible masses in the right frontal lobe left posterior frontal lobe and right occipital parietal region. CTA was negative for pulmonary embolism. There was evidence of severe emphysema, primarily in the upper lobes. There appears also be a endobronchial valve, in the left upper lobe. Postintubation chest x-ray shows better aeration of both lung staples, and an endotracheal tube which is about 3 cm above the tracheal christina. On 04/24/2024, I am seeing this patient in the intensive care unit. The patient was brought into us and respiratory failure and the patient remains intubated on mechanical ventilator. Apparently, she presented to us with worsening shortness of breath and altered mentation. In the emergency, the patient was intubated and placed on the mechanical ventilator. Of significance is development of met astatic lesions to the brain. CAT scan of the brain was done on 04/23/2024 and it showed multiple enhancing tavera/white matter junction masses and this involves the right frontal lobe measuring 11 mm, left frontal lobe measuring 11 mm and another lesion posteriorly measuring 4 mm in size. No hemorrhage. No mass effect. The exact source of those lesions are not clear. Those are assumed to be metastatic in nature. Meanwhile, the patient underwent a CT of the chest that showed no evidence of any pulmonary embolism. There was extensive emphysematous changes bilaterally and the patient has endobronchial valves in the left upper lobe and there are some atelectatic change in the left upper lobe medially. There is also moderate to severe emphysematous changes bilaterally. A questionable lymph node was seen in the upper abdominal area that needs to be further characterize. Noted, the patient has undergone a previous PET/CT on 02/17/2021 which I assume was done for cancer workup and at that time the patient was found to have a stable 1.5 x 0.8 cm right upper lobe pulmonary nodule that showed no significant metabolic activity and focal post inflammatory scar was suspected. The most recent CAT scan of the chest done during this current admission shows no suspicious pulmonary nodules. No focal consolidation. No airspace disease. At this point in time, the patient remains intubated on mechanical ventilator. The patient is on assist-control rate of 28, tidal volume of 350, FiO2 50% with a PEEP of 5. Blood gas shows a pH of 7.3 with a pCO2 of 52 and pO2 of 190. The patient is currently on KVO IV fluids. She is on a norepinephrine running at 0.08 mcg/kg/min and vasopressin physiologic dose at 0.03 units. The white cell count of 6.6 with hemoglobin 9.5 platelet count of 296. Sodium is at 133, BUN 14 with a creatinine of 0.4. Cultures are still pending for now. The patient's viral screen was negative, procalcitonin level is 0.03. Troponins are negative. LFTs are normal. The patient is currently on DuoNeb updrafts, IV Rocephin and Zithromax. The patient also on Decadron 4 mg IV every 6 hours. Sedated with propofol. IV fluids were at KVO. Based on low urine output, I recommended to start the patient on normal citrate of 75 cc an hour. On 04/25/2024, the patient remains intubated on mechanical ventilator. This morning, the patient is on propofol running at 70 mcg/kg/min. Will also add fentanyl to control her restlessness and agitation and sexually with a mechanical ventilator. She is assist-control mode with rate of 28, tidal volume of 350, FiO2 50% with a PEEP of 5. Blood gas showed a pH of 7.29 with a pCO2 58 and pO2 of 201. The patient had a follow-up chest x-ray that shows no acute abnormalities. ET tube needs to be advanced and appropriate recommendations were given. There are some reticular opacities throughout the right lung which was present earlier and are essentially unchanged. The patient remains on bronchodilators and the patient is currently on DuoNeb updrafts. The patient on IV Solu-Medrol 60 mg every 6 hours. The patient is on normal saline at rate of 75 cc an hour. Norepinephrine running at 0.01 mcg/kg/min and vasopressin has been discontinued. The patient was started on vital HP for enteral feeding for nutritional support and the patient is running at a rate of 35 cc an hour. Fluid balance is +2.6 L over the past 24 hours. Remains on IV Rocephin as an empiric antibiotic coverage. EEG was performed yesterday and showed no seizure activity and there is mild to moderate degree of slowing related to use of propofol. Patient was also seen by neurology. No other significant events overnight. Peak airway pressure remains elevated at 38. The patient has a positive auto PEEP. Objective - Vital Signs Vital signs: Vital Signs Temp 98.1 F 04/25/24 08:00 Pulse 83 04/25/24 10:09 Resp 26 H 04/25/24 09:00 BP 108/64 04/25/24 09:00 Pulse Ox 100 04/25/24 09:00 FiO2 50 04/25/24 09:58 Intake & Output 04/24/24 04/25/24 04/25/24 18:59 06:59 18:59 Intake Total 2085.247 1502.466 264 Output Total 395 510 110 Balance 1690.247 992.466 154 Weight 59.2 kg 54.6 kg Intake: IV 96 861 234 .9 @ 10ml 60 Sodium Chloride 0.9% 1, 825 225 000 ml @ 75 mls/hr IV . [id number] [facility] Rx#:[id number] pressure bag 36 36 9 Intake, IV Titration 1859.247 211.466 Amount Norepinephrine 4 mg In 117.630 36.466 Sodium Chloride 0.9% 250 ml @ 0.03 MCG/KG/MIN 5. 185 mls/hr IV .Q24H [facility] Rx#:[id number] Sodium Chloride 0.9% 1, 450 75 000 ml @ 75 mls/hr IV . [id number] [facility] Rx#:[id number] Sodium Chloride 0.9% 1, 1000 000 ml @ 999 mls/hr IV . Q1H1M [facility] Rx#:[id number] Vasopressin 20 unit In 76.526 Sodium Chloride 0.9% 50 ml @ 0.03 UNITS/MIN 4.59 mls/hr IV .Q11H7M [facility] Rx# :[id number] cefTRIAXone 2 gm In 50 Sodium Chloride 0.9% 50 ml @ 100 mls/hr IVPB Q24HR [facility] Rx#:[id number] propofoL 1,000 mg In 165.091 100 Empty Bag 1 bag @ 15 MCG/ KG/MIN 4.082 mls/hr IV . Q24H [facility] Rx#:[id number] Tube Feeding 100 340 30 Other 30 90 Output: Urine 395 510 110 Other: Voiding Method Indwelling Catheter Indwelling Catheter Indwelling Catheter ABP, PAP, CO, CI - Last Documented Arterial Blood Pressure 94/54 - Exam Calm and comfortable, intubated on mechanical ventilator. Orogastric and orotracheal tube are both in place. Currently on propofol. Grimaces to painful stimulation. Moving all 4 extremities without limitation. No seizure activity has been noted. HEENT examination is grossly unremarkable. Mucous membranes are moist. No oral lesions. Neck supple. Full range of motion. No adenopathy thyromegaly or neck vein distention. Cardiovascular examination reveals regular rhythm rate. S1-S2 normal. No S3 or S4. No discernible murmur noted. Lungs reveal scattered bilateral rhonchi and wheezes. Breath sounds are diminished. No crackles. Breath sounds are equal. Abdomen soft bowel sounds are heard. No masses or tenderness. Extremities are intact. No cyanosis clubbing or edema. Skin is without rash or lesion. Neurologic examination is difficult to assess. - Labs CBC & Chem 7: 04/25/24 03:44 04/25/24 03:44 Labs: Abnormal Lab Results - Last 24 Hours (Table) 04/24/24 04/24/24 04/25/24 Range/Units 12:07 17:26 01:29 Hgb (11.4-16.0) gm/dL Hct (34.0-46.0) % MCHC (31.0-37.0) g/dL Lymphocytes # (1.0-4.8) k/uL ABG pH (7.35-7.45) ABG pCO2 (35-45) mmHg ABG pO2 (83-108) mmHg ABG HCO3 (21-25) mmol/L ABG Total CO2 (19-24) mmol/L ABG O2 Saturation (94-97) % Creatinine (0.52-1.04) mg/dL Glucose (74-99) mg/dL POC Glucose (mg/dL) 143 H 143 H 147 H (70-110) mg/dL AST (14-36) U/L ALT (4-34) U/L Total Protein (6.3-8.2) g/dL Albumin (3.5-5.0) g/dL 04/25/24 04/25/24 04/25/24 Range/Units 03:44 03:44 04:54 Hgb 10.4 L (11.4-16.0) gm/dL Hct 33.7 L (34.0-46.0) % MCHC 30.8 L (31.0-37.0) g/dL Lymphocytes # 0.3 L (1.0-4.8) k/uL ABG pH 7.29 L (7.35-7.45) ABG pCO2 58 H (35-45) mmHg ABG pO2 201 H (83-108) mmHg ABG HCO3 28 H (21-25) mmol/L ABG Total CO2 30 H (19-24) mmol/L ABG O2 Saturation 99.6 H (94-97) % Creatinine 0.39 L (0.52-1.04) mg/dL Glucose 144 H (74-99) mg/dL POC Glucose (mg/dL) (70-110) mg/dL AST 175 H (14-36) U/L ALT 112 H (4-34) U/L Total Protein 5.3 L (6.3-8.2) g/dL Albumin 3.0 L (3.5-5.0) g/dL Microbiology - Last 24 Hours (Table) 04/23/24 11:50 Blood Culture - Preliminary Blood 04/24/24 16:25 Gram Stain - Preliminary Sputum Assessment and Plan Plan: Acute hypoxemic respiratory failure, secondary to COPD exacerbation. CT of the chest was noted and there is no evidence of any airspace disease or consolidation. No suspicious lung nodules or lesions. No significant mediastinal lymphadenopathy. The patient has moderate to severe emphysematous changes and she has evidence of endobronchial valve insertion in the left upper lobe that was done in outside facility. She has some atelectatic changes in the left upper lobe medially. No evidence of any airspace disease or pneumonia. Viral screen has been negative. Remains intubated on mechanical ventilator. Remains bronchospastic. Peak airway pressure remains elevated. Patient has a positive ROP. Remains on bronchodilators and steroids. Remains on IV Rocephin as empiric antibiotic coverage. Advanced COPD with diffuse emphysematous changes and possible previous endobronchial valve insertion, details are not known. Hypotension, post intubation. Likely hypovolemic in nature. Currently on low- dose norepinephrine and vasopressin has been discontinued and the patient remains on IV fluids. Previous history of a postinflammatory scar in the right upper lobe and a previous PET/CT that was done back in 2020 showed no significant metabolic activity Altered mentation with evidence of multiple lesions in the brain without any vasogenic edema. No mass effect. Those lesions are measuring 11 to 12 mm in size in the right frontal and left frontal and another 1 posteriorly. Obviously, metastatic disease is of a concern. Prior history of heavy tobacco use. Plan: Continue ventilator support. Dropped respiratory rate down to 22, not ready for weaning at this point in time as the patient remains quite bronchospastic and wheezy still. Continue propofol And fentanyl if needed to maintain synchrony on the mechanical ventilator Continue bronchodilators. Continue IV steroids and put the patient on IV Solu-Medrol 60 mg every 6 hours. IV Rocephin as empiric antibiotic coverage. Blood cultures Sputum cultures, pending EEG showed no evidence of any seizure activity IV fluids normal saline at rate of 75 cc an hour Wean off pressors and discontinue Will obtain records from outside facility regarding her previous treatment and details of her medical history. Condition is critical Will continue to follow make further recommendations based on her progress. This evaluation was done in 38 minutes. Time with Patient: Greater than 30
[2024-04-25 17:06] LABS: Glucose,Whole Blood 111 mg/dL (70-110)
[2024-04-25 23:25] LABS: Glucose,Whole Blood 148 mg/dL (70-110)
[2024-04-26 01:01] LABS: Glucose,Whole Blood 163 mg/dL (70-110)
[2024-04-26 04:52] LABS: ABG Base Excess 1.2 mmol/L; ABG HCO3 30 mmol/L (21-25); ABG Oxygen Saturation 97.8 % (94-97); ABG PCO2 70 mmHg (35-45); ABG PH 7.24 (7.35-7.45); ABG PO2 107 mmHg (83-108); ABG TCO2 32 mmol/L (19-24)
[2024-04-26 04:54] LABS: Allen Test Performed? no
[2024-04-26 05:17] LABS: Glucose,Whole Blood 121 mg/dL (70-110)
[2024-04-26 05:40] LABS: Basophils % (A) 0 %; Eosinophils % (A) 0 %; HCT 34.8 % (34.0-46.0); HGB 10.6 gm/dL (11.4-16.0); Hypochromasia Marked; Lymphocytes # (A) 0.2 k/uL (1.0-4.8); Lymphocytes % (A) 1 %; MCH 26.5 pg (25.0-35.0); MCHC 30.6 g/dL (31.0-37.0); MCV 86.7 fL (80.0-100.0); Mean Platelet Volume 7.9; Monocytes # (A) 0.4 k/uL (0-1.0); Monocytes % (A) 4 %; Neutrophils # (A) 11.6 k/uL (1.3-7.7); Neutrophils % (A) 94 %; Platelet Count 266 k/uL (150-450); RBC 4.01 m/uL (3.80-5.40); RDW 14.8 % (11.5-15.5); WBC 12.3 k/uL (3.8-10.6)
[2024-04-26 06:03] LABS: African American GFR (CKD) >90 (>60 ml/min/1.73 sqM); Anion Gap 4 mmol/L; Blood Urea Nitrogen 18 mg/dL (7-17); Calcium 8.8 mg/dL (8.4-10.2); Carbon Dioxide 28 mmol/L (22-30); Chloride 107 mmol/L (98-107); Glucose 121 mg/dL (74-99); Magnesium 2.1 mg/dL (1.6-2.3); Non-African American GFR(CKD) >90 (>60 ml/min/1.73 sqM); Potassium 4.4 mmol/L (3.5-5.1); Sodium 139 mmol/L (137-145)
--- NOTE | 2024-04-26 08:18 | XR ---
EXAMINATION TYPE: XR chest 1V portable DATE OF EXAM: 04/26/2024 5:26 AM COMPARISON: Chest radiographs from TECHNIQUE: XR chest 1V portable . CLINICAL INDICATION:Female, 63 years old with history of Tube placement; FINDINGS: Lungs/Pleura: There is no evidence of pleural effusion or pneumothorax. Hyperinflation. Similar scatt ered reticular opacities within the right lung. Left hilar endobronchial valves identified. Pulmonary vascularity: Unremarkable. Heart/mediastinum: Cardiomediastinal silhouette is prominent in size. Musculoskeletal: No acute osseous pathology. Other findings: None Lines/Tubes: Endotracheal tube with distal tip 5.1 cm above the christina Nasogastric tube with its distal tip and side-port projecting under the diaphragm. IMPRESSION: 1. COPD changes with similar reticular opacities throughout the right lung likely representing pulmo nary fibrotic changes. 2. Stable support tubes. [facility], , 04/26/2024 8:16 AM
[2024-04-26 11:53] LABS: Glucose,Whole Blood 168 mg/dL (70-110)
[2024-04-26] MEDS: IOPAMIDOL CONTRAST (ORAL USE) VIAL PO PRN (12:31)
--- NOTE | 2024-04-26 13:13 | CA ---
Transthoracic Echo Report Name: Spring Burdick Age: 63 Gender: F : 1960 Exam Date: 04/26/2024 10:29 Exam Location: [place] [facility] Ht (in): 65 Wt (lb): 129 Ordering Physician: Ricardo Diggs MD Attending/Referring Phys: [employer] Supervisor Chelle Ward RDCS Procedure CPT: Indications: cardiac structural assessment Cardiac Hx: Technical Quality: Good Contrast 1: Total Dose (mL): Contrast 2: Total Dose (mL): MEASUREMENTS (Male / Female) Normal Values 2D ECHO LV Diastolic Diameter PLAX 4.8 cm 4.2 - 5.9 / 3.9 - 5.3 cm LV Systolic Diameter PLAX 3.3 cm IVS Diastolic Thickness 1.2 cm 0.6 - 1.0 / 0.6 - 0.9 cm LVPW Diastolic Thickness 1.0 cm 0.6 - 1.0 / 0.6 - 0.9 cm LV Relative Wall Thickness 0.5 RV Internal Dim ED PLAX 3.6 cm LA Systolic Diameter LX 3.5 cm 3.0 - 4.0 / 2.7 - 3.8 cm LV Diastolic Volume MOD BP 69.6 cm??? 67 - 155 / 56 - 104 cm??? LV Systolic Volume MOD BP 26.4 cm??? 22 - 58 / 19 - 49 cm??? LV Ejection Fraction MOD BP 62.1 % >= 55 % LV Cardiac Index MOD BP 2504.5 cm???/min???m??? LV Diastolic Volume MOD 4C 58.0 cm??? LV Systolic Volume MOD 4C 23.9 cm??? LV Ejection Fraction MOD 4C 58.8 % LV Cardiac Index MOD 4C 1977.0 cm???/min???m??? LV Diastolic Length 4C 6.4 cm LV Systolic Length 4C 4.7 cm LV Diastolic Volume MOD 2C 81.0 cm??? LV Systolic Volume MOD 2C 30.3 cm??? LV Ejection Fraction MOD 2C 62.6 % LV Cardiac Index MOD 2C 2939.6 cm???/min???m??? LV Diastolic Length 2C 6.8 cm LV Systolic Length 2C 4.8 cm LA Volume 29.9 cm??? 18 - 58 / 22 - 52 cm??? LA Volume Index 18.3 cm???/m??? 16 - 28 cm???/m??? M-MODE Aortic Root Diameter MM 3.4 cm DOPPLER AV Peak Velocity 164.6 cm/s AV Peak Gradient 10.8 mmHg MV Area PHT 2.9 cm??? Mitral E Point Velocity 63.2 cm/s Mitral A Point Velocity 75.6 cm/s Mitral E to A Ratio 0.8 MV Deceleration Time 265.8 ms TR Peak Velocity 276.8 cm/s TR Peak Gradient 30.6 mmHg Right Ventricular Systolic Press 45.6 mmHg FINDINGS Left Ventricle Left ventricular ejection fraction is estimated at 55-60 %. Left ventricular cavity size normal. Mildly increased septal wall thickness. Mildly increased posterior wall thickness. Right Ventricle Mild right ventricular dilatation. Moderate pulmonary hypertension. Right Atrium Normal right atrial size. No right atrial thrombus or mass seen. Left Atrium Normal left atrial size. No left atrial thrombus or mass present. Mitral Valve Structurally normal mitral valve. Mild mitral regurgitation. Aortic Valve Trileaflet aortic valve. No aortic valve stenosis or regurgitation. Tricuspid Valve Structurally normal tricuspid valve. Mild tricuspid regurgitation. Pulmonic Valve Structurally normal pulmonic valve. No pulmonic regurgitation. Pericardium Small pericardial effusion by apex Aorta Normal size aortic root and proximal ascending aorta. CONCLUSIONS Technically difficult study for interpretation Normal LV systolic function Mild pulmonary hypertension and mildly enlarged right ventricle No significant valvular abnormalities noted Small pericardial effusion Previewed by: Dr. Antonino Leo MD (Electronically Signed) Final Date: 26 April 2024 13:12
--- NOTE | 2024-04-26 13:38 | CT ---
EXAMINATION TYPE: CT abdomen pelvis w con DATE OF EXAM: 04/26/2024 COMPARISON: None CLINICAL INDICATION: Female, 63 years old with history of metastatic brain lesions, unknown source; P HH, Brain mets from unknown source TECHNIQUE: Performed with Oral Contrast and with IV Contrast, patient injected with 100 mL of Isovue 300. CT DLP: [address] CTDI: mGy Automated exposure control for dose reduction was used. FINDINGS: The lung bases are clear. There is an NG tube within the stomach. There is mild sludge in the dependent portion of the gallbladder but there is no gallbladder distenti on or wall thickening. There is no biliary ductal dilatation. There is no focal mass or organomegaly involving the liver, pancreas, spleen or adrenal glands. There is no solid renal mass or hydronephrosis and there is homogeneous contrast enhancement of the r enal parenchyma. The caliber the abdominal aorta is normal is no retroperitoneal adenopathy or hemorr ranjan. The bowel loops are normal in caliber and there is no evidence of dilatation or obstruction. No infla mmatory changes are identified in the bowel wall or mesentery. There is mild ascites. There is moderate to marked anasarca of the abdominal and pelvic soft tissues. No pelvic mass, free fluid, abscess or adenopathy. There is a right femoral vein catheter terminating in the distal IVC. There is a Pride catheter within the urinary bladder. There are no focal osseous lesions. IMPRESSION: 1. Mild sludge within the gallbladder. 2. Mild ascites and moderate to marked anasarca of the abdominal and pelvic soft tissues. 3. NG tube, right common femoral vein central venous catheter and Pride catheter as described above. [facility], , 04/26/2024 1:35 PM
--- NOTE | 2024-04-26 16:24 | P.PN ---
Subjective Progress Note Date: 04/26/24 63-year-old female with a history of significant COPD. In fact, I believe I see her in the office for her COPD. She apparently was seen today April 23, in the emergency department, for shortness of breath, which according to the ER member began about a month ago. Is been getting progressively worse, and the patient apparently had some altered mental status according to her . The patient was initially seen in the emergency department, by Dr. Obrien, one of the ER physicians, and, the patient apparently became unresponsive, and required intubation and mechanical ventilation. The patient is currently going to be evaluated and treated, in the intensive care unit. Her past medical history is primarily positive for COPD, and she was a former smoker. She apparently also has a history of a polyp in her sinuses. Current laboratory data includes a white count 8.5, hemoglobin 11.2, hematocrit 36.1, and a platelet count of 261,000. D-dimer was 1.74. Blood gases showed a pO2 greater than 420, pCO2 of 60, the pH is 7.28. This was on 100%. I do not know the vent settings. Sodium 135, potassium 3.9, chloride 95, CO2 34, BUN 9, creatinine 0.42. Glucose was 138. N-terminal proBNP was normal. Troponin was negative. Viral screen was negative. Chest x-ray shows cardiomegaly, and may be some infiltrate in the right lower lobe. In addition the trachea appears to be torturous, and there may be some sort of a mass in the right paratracheal region. CT scan of the brain initially showed scattered areas of tavera-white matter vasogenic edema with possible masses in the right frontal lobe left posterior frontal lobe and right occipital parietal region. CTA was negative for pulmonary embolism. There was evidence of severe emphysema, primarily in the upper lobes. There appears also be a endobronchial valve, in the left upper lobe. Postintubation chest x-ray shows better aeration of both lung staples, and an endotracheal tube which is about 3 cm above the tracheal christina. On 04/24/2024, I am seeing this patient in the intensive care unit. The patient was brought into us and respiratory failure and the patient remains intubated on mechanical ventilator. Apparently, she presented to us with worsening shortness of breath and altered mentation. In the emergency, the patient was intubated and placed on the mechanical ventilator. Of significance is development of met astatic lesions to the brain. CAT scan of the brain was done on 04/23/2024 and it showed multiple enhancing tavera/white matter junction masses and this involves the right frontal lobe measuring 11 mm, left frontal lobe measuring 11 mm and another lesion posteriorly measuring 4 mm in size. No hemorrhage. No mass effect. The exact source of those lesions are not clear. Those are assumed to be metastatic in nature. Meanwhile, the patient underwent a CT of the chest that showed no evidence of any pulmonary embolism. There was extensive emphysematous changes bilaterally and the patient has endobronchial valves in the left upper lobe and there are some atelectatic change in the left upper lobe medially. There is also moderate to severe emphysematous changes bilaterally. A questionable lymph node was seen in the upper abdominal area that needs to be further characterize. Noted, the patient has undergone a previous PET/CT on 02/17/2021 which I assume was done for cancer workup and at that time the patient was found to have a stable 1.5 x 0.8 cm right upper lobe pulmonary nodule that showed no significant metabolic activity and focal post inflammatory scar was suspected. The most recent CAT scan of the chest done during this current admission shows no suspicious pulmonary nodules. No focal consolidation. No airspace disease. At this point in time, the patient remains intubated on mechanical ventilator. The patient is on assist-control rate of 28, tidal volume of 350, FiO2 50% with a PEEP of 5. Blood gas shows a pH of 7.3 with a pCO2 of 52 and pO2 of 190. The patient is currently on KVO IV fluids. She is on a norepinephrine running at 0.08 mcg/kg/min and vasopressin physiologic dose at 0.03 units. The white cell count of 6.6 with hemoglobin 9.5 platelet count of 296. Sodium is at 133, BUN 14 with a creatinine of 0.4. Cultures are still pending for now. The patient's viral screen was negative, procalcitonin level is 0.03. Troponins are negative. LFTs are normal. The patient is currently on DuoNeb updrafts, IV Rocephin and Zithromax. The patient also on Decadron 4 mg IV every 6 hours. Sedated with propofol. IV fluids were at KVO. Based on low urine output, I recommended to start the patient on normal citrate of 75 cc an hour. On 04/25/2024, the patient remains intubated on mechanical ventilator. This morning, the patient is on propofol running at 70 mcg/kg/min. Will also add fentanyl to control her restlessness and agitation and sexually with a mechanical ventilator. She is assist-control mode with rate of 28, tidal volume of 350, FiO2 50% with a PEEP of 5. Blood gas showed a pH of 7.29 with a pCO2 58 and pO2 of 201. The patient had a follow-up chest x-ray that shows no acute abnormalities. ET tube needs to be advanced and appropriate recommendations were given. There are some reticular opacities throughout the right lung which was present earlier and are essentially unchanged. The patient remains on bronchodilators and the patient is currently on DuoNeb updrafts. The patient on IV Solu-Medrol 60 mg every 6 hours. The patient is on normal saline at rate of 75 cc an hour. Norepinephrine running at 0.01 mcg/kg/min and vasopressin has been discontinued. The patient was started on vital HP for enteral feeding for nutritional support and the patient is running at a rate of 35 cc an hour. Fluid balance is +2.6 L over the past 24 hours. Remains on IV Rocephin as an empiric antibiotic coverage. EEG was performed yesterday and showed no seizure activity and there is mild to moderate degree of slowing related to use of propofol. Patient was also seen by neurology. No other significant events overnight. Peak airway pressure remains elevated at 38. The patient has a positive auto PEEP. On 04/26/2024, patient is being seen for a follow-up. Remains intubated on mechanical ventilator. As mentioned earlier, the patient has advanced COPD. The patient also has metastatic CORPORATE LEGAL ASSISTANT lesions. Oncology is on the case. On today's evaluation, the patient remains sedated. She is on propofol running at 65 mcg/kg/min and fentanyl at 1 mcg/kg/h. She is on assist-control mode of mechanical ventilation at rate of 22, tidal volume of 350, FiO2 40% with a PEEP of 5. Blood gas showed a pH of 7.24 with a pCO2 17 pO2 of 107. Peak airway pressure is around 39. She is receiving fluid boluses and overnight, she received a total of 2 L and the patient is a positive fluid balance of 2.4 L over the past 24 hours. She remains on low-dose norepinephrine running at 0.02 mcg/kg/min. The patient remains on empiric antibiotic coverage with IV Rocephin. She remains on bronchodilators patient remains on IV Solu-Medrol 60 mg every 6 hours. White cell count of 12.3 with a hemoglobin 10.6 and a platelet count of 266. Sodium is at 139, potassium is at 4.4, BUN is 18 with a creatinine of 0.4. Sputum culture was positive for Kaitlin albicans. Blood cultures been negative.Echocardiogram was also obtained today and the patient was found to have normal ejection fraction of 55 to 60%, mild RV dilatation, moderate pulm hypertension, no significant valvular heart disease. Objective - Vital Signs Vital signs: Vital Signs Temp 97.4 F L 04/26/24 08:00 Pulse 88 04/26/24 09:32 Resp 24 04/26/24 08:00 BP 95/53 04/26/24 07:45 Pulse Ox 100 04/26/24 08:00 FiO2 40 04/26/24 09:22 Intake & Output 04/25/24 04/26/24 04/26/24 18:59 06:59 18:59 Intake Total 1939 1730.175 572.918 Output Total 565 630 140 Balance 1374 1100.175 432.918 Weight 58.7 kg Intake: IV 1314 968 314 .9 @ 10ml 110 30 Azithromycin 500 mg In 250 Sodium Chloride 0.9% 250 ml @ 250 mls/hr IVPB DAILY [facility] Rx#:[id number] Sodium Chloride 0.9% 1, 975 825 225 000 ml @ 75 mls/hr IV . [id number] [facility] Rx#:[id number] cefTRIAXone 2 gm In 50 50 Sodium Chloride 0.9% 50 ml @ 100 mls/hr IVPB Q24HR [facility] Rx#:[id number] pressure bag 39 33 9 Intake, IV Titration 100 287.175 123.918 Amount Norepinephrine 4 mg In 87.359 Sodium Chloride 0.9% 250 ml @ 0.03 MCG/KG/MIN 5. 185 mls/hr IV .Q24H [facility] Rx#:[id number] fentaNYL (PF). 1,000 mcg 30.531 33.715 In Sodium Chloride 0.9% 80 ml @ 0.5 MCG/KG/HR 2. 73 mls/hr IV .Q24H [facility] Rx #:[id number] propofoL 1,000 mg In 100 169.285 90.203 Empty Bag 1 bag @ 15 MCG/ KG/MIN 4.082 mls/hr IV . Q24H [facility] Rx#:[id number] Oral 0 Tube Feeding 435 385 105 Other 90 90 30 Output: Urine 565 630 140 Other: Voiding Method Indwelling Catheter Indwelling Catheter # Bowel Movements 2 ABP, PAP, CO, CI - Last Documented Arterial Blood Pressure 122/66 - Exam Calm and comfortable, intubated on mechanical ventilator. Orogastric and orotracheal tube are both in place. Currently on propofol. Grimaces to painful stimulation. Moving all 4 extremities without limitation. No seizure activity has been noted. HEENT examination is grossly unremarkable. Mucous membranes are moist. No oral lesions. Neck supple. Full range of motion. No adenopathy thyromegaly or neck vein distention. Cardiovascular examination reveals regular rhythm rate. S1-S2 normal. No S3 or S4. No discernible murmur noted. Lungs reveal scattered bilateral rhonchi and wheezes. Breath sounds are diminished. No crackles. Breath sounds are equal. Abdomen soft bowel sounds are heard. No masses or tenderness. Extremities are intact. No cyanosis clubbing or edema. Skin is without rash or lesion. Neurologic examination is difficult to assess. - Labs CBC & Chem 7: 04/26/24 05:00 04/26/24 05:00 Labs: Abnormal Lab Results - Last 24 Hours (Table) 04/25/24 04/25/24 04/25/24 Range/Units 11:16 17:05 23:23 WBC (3.8-10.6) k/uL Hgb (11.4-16.0) gm/dL MCHC (31.0-37.0) g/dL Neutrophils # (1.3-7.7) k/uL Lymphocytes # (1.0-4.8) k/uL ABG pH (7.35-7.45) ABG pCO2 (35-45) mmHg ABG HCO3 (21-25) mmol/L ABG Total CO2 (19-24) mmol/L ABG O2 Saturation (94-97) % Hemoglobin (11.4-16.0) gm/dL BUN (7-17) mg/dL Creatinine (0.52-1.04) mg/dL Glucose (74-99) mg/dL POC Glucose (mg/dL) 182 H 111 H 148 H (70-110) mg/dL 04/26/24 04/26/24 04/26/24 Range/Units 00:59 04:32 05:00 WBC (3.8-10.6) k/uL Hgb (11.4-16.0) gm/dL MCHC (31.0-37.0) g/dL Neutrophils # (1.3-7.7) k/uL Lymphocytes # (1.0-4.8) k/uL ABG pH 7.24 L (7.35-7.45) ABG pCO2 70 H (35-45) mmHg ABG HCO3 30 H (21-25) mmol/L ABG Total CO2 32 H (19-24) mmol/L ABG O2 Saturation 97.8 H (94-97) % Hemoglobin 10.7 L (11.4-16.0) gm/dL BUN 18 H (7-17) mg/dL Creatinine 0.43 L (0.52-1.04) mg/dL Glucose 121 H (74-99) mg/dL POC Glucose (mg/dL) 163 H (70-110) mg/dL 04/26/24 04/26/24 Range/Units 05:00 05:15 WBC 12.3 H (3.8-10.6) k/uL Hgb 10.6 L (11.4-16.0) gm/dL MCHC 30.6 L (31.0-37.0) g/dL Neutrophils # 11.6 H (1.3-7.7) k/uL Lymphocytes # 0.2 L (1.0-4.8) k/uL ABG pH (7.35-7.45) ABG pCO2 (35-45) mmHg ABG HCO3 (21-25) mmol/L ABG Total CO2 (19-24) mmol/L ABG O2 Saturation (94-97) % Hemoglobin (11.4-16.0) gm/dL BUN (7-17) mg/dL Creatinine (0.52-1.04) mg/dL Glucose (74-99) mg/dL POC Glucose (mg/dL) 121 H (70-110) mg/dL Microbiology - Last 24 Hours (Table) 04/24/24 16:25 Gram Stain - Final Sputum Sputum Culture - Final Kaitlin albicans 04/23/24 11:50 Blood Culture - Preliminary Blood Assessment and Plan Plan: Acute hypoxemic respiratory failure, secondary to COPD exacerbation. CT of the chest was noted and there is no evidence of any airspace disease or consolidation. No suspicious lung nodules or lesions. No significant mediastinal lymphadenopathy. The patient has moderate to severe emphysematous changes and she has evidence of endobronchial valve insertion in the left upper lobe that was done in outside facility. She has some atelectatic changes in the left upper lobe medially. No evidence of any airspace disease or pneumonia. Viral screen has been negative. Remains intubated on mechanical ventilator. Remains bronchospastic. Peak airway pressure remains elevated. Antibiotic coverage with IV Rocephin, empiric. Blood gases showing an acute on top of chronic hypoxic/hypercapnic respiratory failure. Remains bronchospastic and wheezy. Advanced COPD with diffuse emphysematous changes and possible previous endobronchial valve insertion, details are not known. Hypotension, post intubation. Likely hypovolemic in nature. Currently on low- dose norepinephrine and vasopressin has been discontinued and the patient re mi on IV fluids. The vasopressin has been discontinued the patient is currently on low-dose norepinephrine. Echocardiogram shows a preserved LV function with an ejection fraction of 55%. Previous history of a postinflammatory scar in the right upper lobe and a previous PET/CT that was done back in 2020 showed no significant metabolic activity Altered mentation with evidence of multiple lesions in the brain without any vasogenic edema. No mass effect. Those lesions are measuring 11 to 12 mm in size in the right frontal and left frontal and another 1 posteriorly. Obviously, metastatic disease is of a concern. Prior history of heavy tobacco use. Plan: Continue ventilator support. Continue propofol and fentanyl Continue bronchodilators. IV Solu-Medrol 60 mg every 6 hours. IV Rocephin as empiric antibiotic coverage. Blood cultures Sputum cultures, positive for Kaitlin albicans EEG showed no evidence of any seizure activity IV fluids to KVO Wean off pressors and discontinue, the patient is currently off vasopressin and minimal dose of norepinephrine Obtain a CAT scan of the abdomen and pelvis especially the patient has metastatic CORPORATE LEGAL ASSISTANT lesions. Rule out any intra-abdominal source of malignancy Condition is critical Will continue to follow make further recommendations based on her progress. This evaluation was done in 40 minutes. I had a nice discussion with her and daughter at the bedside. Also discussed the case with medical oncology. Prognosis remains poor. This will be a difficult wean as the patient has advanced/end-stage COPD. Time with Patient: Greater than 30
--- NOTE | 2024-04-26 17:07 | P.CONS ---
History of Present Illness - Reason for Consult Consult date: 04/26/24 brain lesions Requesting physician: Nicolas Clark - Chief Complaint SOB, back pain - History of Present Illness Pt is intubated but alert, follows commands. Hx is taken from medical records and other providers. Pt has PMH significant for COPD. She came to ER with c/o SOB x 1 month, progressively worsening. she also has had some altered mental status. She also reported back pain. There was no documentation of F,C, N,V. She became hypotensive in the ER, she was given fluid bolus, she did not improve, became unresponsive, she was intubated sedated and admitted to intensive care unit. She was started on IV steroids. Her labs show mild anemia, slight increase in the white blood count since being started on steroids. Sputum culture positive for Kaitlin. Initial brain CT without contrast 04/23 done for altered mental status reports an impression of scattered areas of tavera-white matter vasogenic edema with possible masses in the right frontal lobe, left posterior frontal lobe and right occipital/parietal regions. CTA of the chest reporting no PE, questionable lymph node in the retroperitoneum measuring 15 mm, moderate to severe emphysema and COPD changes no discrete masses are reported. Patient had another CT of the brain without contrast done same day, monitoring for any possible intracranial bleeding, impression reports multiple enhancing tavera-white matter junction masses as seen on prior CT are more pronounced with recent contrast. Review of Systems ROS unobtainable: due to endotracheal tube Past Medical History Past Medical History: COPD Additional Past Medical History / Comment(s): sinus polyp History of Any Multi-Drug Resistant Organisms: None Reported Additional Past Surgical History / Comment(s): dermabrasion cheek, sinus polyp removal Past Anesthesia/Blood Transfusion Reactions: No Reported Reaction Past Psychological History: No Psychological Hx Reported Smoking Status: Former smoker Past Alcohol Use History: None Reported Past Drug Use History: None Reported - Past Family History Mother Family Medical History: COPD Father Family Medical History: Myocardial Infarction (NC) Medications and Allergies Home Medications Medication Instructions Recorded Confirmed Type Ipratropium-Albuterol Nebulize 3 ml INHALATION RT-QID 06/01/20 04/23/24 History [Duoneb 0.5 mg-3 mg/3 ml Soln] Azithromycin [Zithromax Z Pack] See Taper PO DIRECTED 04/23/24 04/23/24 History Doxepin [SINEquan] 25 mg PO HS 04/23/24 04/23/24 History Ensifentrine [Ohtuvayre] 3 mg INHALATION DIRECTED 04/23/24 04/23/24 History Montelukast [Singulair] 10 mg PO HS 04/23/24 04/23/24 History predniSONE 5 mg PO DAILY 04/23/24 04/23/24 History Allergies Allergy/AdvReac Type Severity Reaction Status Date / Time No Known Allergies Allergy Verified 04/23/24 16:17 Physical Exam Vitals: Vital Signs Temp Pulse Resp BP Pulse Ox FiO2 04/26/24 08:00 97.4 F L 95 24 100 40 04/26/24 07:45 80 22 95/53 100 04/26/24 07:30 79 22 89/57 100 04/26/24 07:15 78 22 94/57 100 04/26/24 07:00 87 22 94/58 100 40 04/26/24 06:45 81 22 101/54 100 40 04/26/24 06:30 90 22 88/58 99 04/26/24 06:15 86 22 99/61 99 04/26/24 06:00 97.7 F 86 22 106/62 99 40 04/26/24 05:45 99 22 108/64 97 04/26/24 05:30 93 22 110/67 98 40 04/26/24 05:15 95 22 111/68 99 40 04/26/24 05:00 97.1 F L 96 22 103/65 99 40 04/26/24 04:45 102 H 22 104/68 100 40 04/26/24 04:31 101 H 04/26/24 04:30 103 H 22 110/81 99 40 04/26/24 04:18 40 04/26/24 04:17 92 04/26/24 04:15 92 22 115/74 100 40 04/26/24 04:00 99 25 H 125/71 97 40 04/26/24 03:45 22 114/80 99 40 04/26/24 03:30 96 20 117/73 99 40 04/26/24 03:15 98 22 120/78 98 40 04/26/24 03:00 97.7 F 104 H 22 115/69 97 40 04/26/24 02:45 112 H 22 117/73 94 L 40 04/26/24 02:30 106 H 22 112/68 96 40 04/26/24 02:15 106 H 22 118/72 97 40 04/26/24 02:00 97.1 F L 115 H 22 107/64 95 40 04/26/24 01:45 100 22 98/67 97 40 04/26/24 01:00 98.1 F 84 22 103/65 100 40 04/26/24 00:57 86 04/26/24 00:49 40 04/26/24 00:47 82 04/26/24 00:08 85 22 117/67 98 04/26/24 00:00 97.1 F L 76 22 94/56 98 40 04/25/24 23:00 73 22 100/63 98 40 04/25/24 22:00 98.4 F 74 22 88/52 99 40 04/25/24 21:00 85 22 104/68 98 40 04/25/24 20:44 95 04/25/24 20:35 40 04/25/24 20:34 96 04/25/24 20:00 98.4 F 90 19 98/63 99 40 04/25/24 19:00 97 23 93/57 100 04/25/24 18:00 89 25 H 100/65 100 04/25/24 17:20 85 04/25/24 17:00 86 22 99/61 100 04/25/24 16:48 40 04/25/24 16:46 87 04/25/24 16:00 98.1 F 80 22 100/65 100 40 04/25/24 15:00 73 25 H 83/55 100 04/25/24 14:00 78 13 84/58 100 04/25/24 13:16 86 04/25/24 13:09 88 04/25/24 13:00 85 22 92/55 100 04/25/24 12:52 40 04/25/24 12:00 98.0 F 95 24 109/72 100 40 04/25/24 11:00 98 24 106/66 100 04/25/24 10:09 83 04/25/24 10:01 81 04/25/24 10:00 74 28 H 109/62 100 04/25/24 09:58 50 Intake and Output 04/25/24 04/26/24 04/26/24 22:59 06:59 14:59 Intake Total 0342.420 0333.628 572.918 Output Total 405 505 140 Balance 721.547 693.628 432.918 Intake: IV 654 704 314 .9 @ 10ml 30 80 30 Sodium Chloride 0.9% 1, 600 600 225 000 ml @ 75 mls/hr IV . [id number] [facility] Rx#:[id number] cefTRIAXone 2 gm In 50 Sodium Chloride 0.9% 50 ml @ 100 mls/hr IVPB Q24HR [facility] Rx#:[id number] pressure bag 24 24 9 Intake, IV Titration 132.547 154.628 123.918 Amount Norepinephrine 4 mg In 2.016 85.343 Sodium Chloride 0.9% 250 ml @ 0.03 MCG/KG/MIN 5. 185 mls/hr IV .Q24H [facility] Rx#:[id number] fentaNYL (PF). 1,000 mcg 30.531 33.715 In Sodium Chloride 0.9% 80 ml @ 0.5 MCG/KG/HR 2. 73 mls/hr IV .Q24H [facility] Rx #:[id number] propofoL 1,000 mg In 100 69.285 90.203 Empty Bag 1 bag @ 15 MCG/ KG/MIN 4.082 mls/hr IV . Q24H [facility]INA Rx#:[id number] Oral 0 0 Tube Feeding 280 280 105 Other 60 60 30 Output: Urine 405 505 140 Other: Voiding Method Indwelling Catheter Indwelling Catheter # Bowel Movements 2 Weight 58.7 kg ABP, PAP, CO, CI - Last 8 Hours Arterial Blood Pressure 122/66 Arterial Blood Pressure 119/54 Arterial Blood Pressure 119/55 Arterial Blood Pressure 115/53 Arterial Blood Pressure 121/57 Arterial Blood Pressure 117/57 Arterial Blood Pressure 124/57 Arterial Blood Pressure 109/51 Arterial Blood Pressure 120/60 Arterial Blood Pressure 122/61 Arterial Blood Pressure 115/64 Arterial Blood Pressure 100/49 Arterial Blood Pressure 91/54 Arterial Blood Pressure 105/60 Arterial Blood Pressure 122/65 Arterial Blood Pressure 109/59 Arterial Blood Pressure 134/75 Arterial Blood Pressure 139/77 Arterial Blood Pressure 121/64 Arterial Blood Pressure 126/66 Arterial Blood Pressure 105/63 Arterial Blood Pressure 118/62 Arterial Blood Pressure 99/60 Arterial Blood Pressure 96/65 Arterial Blood Pressure 106/59 - Constitutional General appearance: average body habitus, cooperative, no acute distress - EENT Eyes: anicteric sclerae, EOMI ENT: hearing grossly normal - Neck Neck: no lymphadenopathy - Respiratory Respiratory: bilateral: CTA - Cardiovascular Rhythm: regular Heart sounds: normal: S1, S2 Abnormal Heart Sounds: no systolic murmur, no diastolic murmur, no rub, no S3 Gallop, no S4 Gallop, no click, no other leg Peripheral Edema: bilateral: None - Gastrointestinal General gastrointestinal: no absent bowel sounds, no decreased bowel sounds, no distended, no hepatomegaly, no hyperactive bowel sounds, normal bowel sounds, no organomegaly, no rigid, no scaphoid, soft, no splenomegaly, no tenderness, no umbilical hernia, no ventral hernia - Integumentary Integumentary: normal - Neurologic Neurologic: CNII-XII intact (grossly) - Psychiatric alert, follows commands Results CBC & Chem 7: 04/26/24 05:00 04/26/24 05:00 Labs: Abnormal Lab Results - Last 24 Hours (Table) 04/25/24 04/25/24 04/25/24 Range/Units 11:16 17:05 23:23 WBC (3.8-10.6) k/uL Hgb (11.4-16.0) gm/dL MCHC (31.0-37.0) g/dL Neutrophils # (1.3-7.7) k/uL Lymphocytes # (1.0-4.8) k/uL ABG pH (7.35-7.45) ABG pCO2 (35-45) mmHg ABG HCO3 (21-25) mmol/L ABG Total CO2 (19-24) mmol/L ABG O2 Saturation (94-97) % Hemoglobin (11.4-16.0) gm/dL BUN (7-17) mg/dL Creatinine (0.52-1.04) mg/dL Glucose (74-99) mg/dL POC Glucose (mg/dL) 182 H 111 H 148 H (70-110) mg/dL 04/26/24 04/26/24 04/26/24 Range/Units 00:59 04:32 05:00 WBC (3.8-10.6) k/uL Hgb (11.4-16.0) gm/dL MCHC (31.0-37.0) g/dL Neutrophils # (1.3-7.7) k/uL Lymphocytes # (1.0-4.8) k/uL ABG pH 7.24 L (7.35-7.45) ABG pCO2 70 H (35-45) mmHg ABG HCO3 30 H (21-25) mmol/L ABG Total CO2 32 H (19-24) mmol/L ABG O2 Saturation 97.8 H (94-97) % Hemoglobin 10.7 L (11.4-16.0) gm/dL BUN 18 H (7-17) mg/dL Creatinine 0.43 L (0.52-1.04) mg/dL Glucose 121 H (74-99) mg/dL POC Glucose (mg/dL) 163 H (70-110) mg/dL 04/26/24 04/26/24 Range/Units 05:00 05:15 WBC 12.3 H (3.8-10.6) k/uL Hgb 10.6 L (11.4-16.0) gm/dL MCHC 30.6 L (31.0-37.0) g/dL Neutrophils # 11.6 H (1.3-7.7) k/uL Lymphocytes # 0.2 L (1.0-4.8) k/uL ABG pH (7.35-7.45) ABG pCO2 (35-45) mmHg ABG HCO3 (21-25) mmol/L ABG Total CO2 (19-24) mmol/L ABG O2 Saturation (94-97) % Hemoglobin (11.4-16.0) gm/dL BUN (7-17) mg/dL Creatinine (0.52-1.04) mg/dL Glucose (74-99) mg/dL POC Glucose (mg/dL) 121 H (70-110) mg/dL Microbiology - Last 24 Hours (Table) 04/24/24 16:25 Gram Stain - Final Sputum Sputum Culture - Final Kaitlin albicans 04/23/24 11:50 Blood Culture - Preliminary Blood Chest x-ray: report reviewed CT scan - chest: report reviewed CT Scan - head: report reviewed Assessment and Plan (1) Vasogenic edema Current Visit: Yes Status: Acute Priority: High Code(s): G93.6 - CEREBRAL EDEMA SNOMED Code(s): 471646118 Plan: Brain lesions with vasogenic edema -Able to obtain what information we could from the chart. Patient does have an extensive history of smoking, COPD. Concern that findings in the brain represent a malignant process. -CT of the chest did not show any lung masses, mediastinal lymphadenopathy, or suspicious lesions. No PE. A retroperitoneal lymph node was noted. -Case was discussed with Critical Care team. CT of the abdomen and pelvis will be ordered looking for primary mass/lesion. -Agree with continuing steroids for vasogenic edema. We will continue to follow along with patient's clinical course, further recommendations to follow from a Medical Oncology standpoint. Doctor attests: I performed a history and physical examination of this patient, developed impression and plan of care. Discussed with dictator. I agree with dictators note, documented as a scribe.
[2024-04-26 17:47] LABS: Glucose,Whole Blood 132 mg/dL (70-110)
--- NOTE | 2024-04-26 17:51 | P.PN ---
Subjective Progress Note Date: 04/26/24 Spring Burdick, is a 63-year-old female patient of Dr. Gibbs who presented to [facility] emergency room with a chief complaint of She was evaluated in the emergency room vital examination on presentation revealed a temperature of 95.5 pulse 114 respiration 24 blood pressure 88/65 pulse ox 98% on 4 L nasal cannula Laboratory data revealed a white blood count of 8.5 hemoglobin 11.2 platelet count 261 D-dimer 1.74 sodium 135 potassium 3.9 BUN 9 creatinine 0.42 glucose 144 troponin 0.012 influenza A and B RSV and COVID PCR are all negative Testing in the emergency room revealed chest x-ray done in the emergency room revealed left-sided airspace opacities suggestive of pneumonia, CT scan of the brain revealed scattered areas of tavera-white matter vasogenic edema with possible masses in the right frontal lobe and left posterior frontal lobe and right occipital parietal regions finding concerning for metastatic disease. During her stay in the emergency room patient had hypotension, she was resuscitated with IV fluid, however her condition continued to worsen, she became unresponsive, she was intubated sedated and admitted to intensive care unit, he was started on IV steroid. Pulmonary and neurology consultation were requested. On 04/25/2024 patient remains in the ICU on mechanical ventilation. Patient also currently on Levophed for pressure support. Per nursing staff patient requiring increased amounts of sedation. Neurology and critical care services are following will consult oncology services due to concerns of metastatic lesions in brain On 04/26/2024 patient was seen and examined in the ICU she is intubated sedated maintained on mechanical ventilation, her vent settings are assist-control rate 22 tidal volume 350 FiO2 40% and PEEP of 5 vital exam reveals a temperature of 98 pulse 78 respiration 22 blood pressure 98/53 pulse ox 99% on FiO2 40% white blood count 12.3 hemoglobin 10.6 platelet count 266 arterial blood gas revealed pH 7.24 pCO2 70 pO2 107 BUN 18 creatinine 0.43. Case was discussed in details with Dr. Morton today Objective - Vital Signs Vital signs: Vital Signs Temp 98.1 F 04/26/24 16:00 Pulse 77 04/26/24 17:00 Resp 22 04/26/24 17:00 BP 80/51 04/26/24 15:00 Pulse Ox 98 04/26/24 17:00 FiO2 40 04/26/24 16:30 Intake & Output 04/25/24 04/26/24 04/26/24 18:59 06:59 18:59 Intake Total 1939 1133.926 3414.370 Output Total 565 630 496 Balance 1374 7646.969 6297.370 Weight 58.7 kg 58.7 kg Intake: IV 1314 968 762 .9 @ 10ml 110 90 Azithromycin 500 mg In 250 Sodium Chloride 0.9% 250 ml @ 250 mls/hr IVPB DAILY [facility]INA Rx#:[id number] Sodium Chloride 0.9% 1, 975 825 595 000 ml @ 75 mls/hr IV . [id number] BINA Rx#:[id number] cefTRIAXone 2 gm In 50 50 Sodium Chloride 0.9% 50 ml @ 100 mls/hr IVPB Q24HR BINA Rx#:[id number] pressure bag 39 33 27 Intake, IV Titration 100 287.175 243.370 Amount Norepinephrine 4 mg In 87.359 35.424 Sodium Chloride 0.9% 250 ml @ 0.03 MCG/KG/MIN 5. 185 mls/hr IV .Q24H BINA Rx#:[id number] fentaNYL (PF). 1,000 mcg 30.531 33.715 In Sodium Chloride 0.9% 80 ml @ 0.5 MCG/KG/HR 2. 73 mls/hr IV .Q24H BINA Rx #:[id number] propofoL 1,000 mg In 100 169.285 174.231 Empty Bag 1 bag @ 15 MCG/ KG/MIN 4.082 mls/hr IV . Q24H BINA Rx#:[id number] Oral 0 Tube Feeding 435 385 245 Other 90 90 1230 Output: Urine 565 630 495 Stool 1 Other: Voiding Method Indwelling Catheter Indwelling Catheter Indwelling Catheter # Bowel Movements 2 ABP, PAP, CO, CI - Last Documented Arterial Blood Pressure 100/55 - Exam Patient is intubated sedated maintained on mechanical ventilation HEENT head normocephalic and atraumatic Neck is supple no JVD no goiter no lymphadenopathy Chest exam reveals a scattered crackles bilaterally no wheezing Cardiac exam reveals regular heart sounds no gallops no murmurs Abdomen is soft nontender no organomegaly Extremity exam reveals no edema no cyanosis or clubbing - Labs CBC & Chem 7: 04/26/24 05:00 04/26/24 05:00 Labs: Abnormal Lab Results - Last 24 Hours (Table) 04/25/24 04/25/24 04/26/24 Range/Units 17:05 23:23 00:59 WBC (3.8-10.6) k/uL Hgb (11.4-16.0) gm/dL MCHC (31.0-37.0) g/dL Neutrophils # (1.3-7.7) k/uL Lymphocytes # (1.0-4.8) k/uL ABG pH (7.35-7.45) ABG pCO2 (35-45) mmHg ABG HCO3 (21-25) mmol/L ABG Total CO2 (19-24) mmol/L ABG O2 Saturation (94-97) % Hemoglobin (11.4-16.0) gm/dL BUN (7-17) mg/dL Creatinine (0.52-1.04) mg/dL Glucose (74-99) mg/dL POC Glucose (mg/dL) 111 H 148 H 163 H (70-110) mg/dL 04/26/24 04/26/24 04/26/24 Range/Units 04:32 05:00 05:00 WBC 12.3 H (3.8-10.6) k/uL Hgb 10.6 L (11.4-16.0) gm/dL MCHC 30.6 L (31.0-37.0) g/dL Neutrophils # 11.6 H (1.3-7.7) k/uL Lymphocytes # 0.2 L (1.0-4.8) k/uL ABG pH 7.24 L (7.35-7.45) ABG pCO2 70 H (35-45) mmHg ABG HCO3 30 H (21-25) mmol/L ABG Total CO2 32 H (19-24) mmol/L ABG O2 Saturation 97.8 H (94-97) % Hemoglobin 10.7 L (11.4-16.0) gm/dL BUN 18 H (7-17) mg/dL Creatinine 0.43 L (0.52-1.04) mg/dL Glucose 121 H (74-99) mg/dL POC Glucose (mg/dL) (70-110) mg/dL 04/26/24 04/26/24 Range/Units 05:15 11:50 WBC (3.8-10.6) k/uL Hgb (11.4-16.0) gm/dL MCHC (31.0-37.0) g/dL Neutrophils # (1.3-7.7) k/uL Lymphocytes # (1.0-4.8) k/uL ABG pH (7.35-7.45) ABG pCO2 (35-45) mmHg ABG HCO3 (21-25) mmol/L ABG Total CO2 (19-24) mmol/L ABG O2 Saturation (94-97) % Hemoglobin (11.4-16.0) gm/dL BUN (7-17) mg/dL Creatinine (0.52-1.04) mg/dL Glucose (74-99) mg/dL POC Glucose (mg/dL) 121 H 168 H (70-110) mg/dL Microbiology - Last 24 Hours (Table) 04/24/24 16:25 Gram Stain - Final Sputum Sputum Culture - Final Kaitlin albicans 04/23/24 11:50 Blood Culture - Preliminary Blood Assessment and Plan Plan: Acute hypoxic respiratory failure Acute exacerbation of chronic obstructive pulmonary disease Hypotension with hypovolemic shock on presentation Altered mentation on presentation Evidence of metastatic brain lesions At this time patient is intubated sedated maintained on mechanical ventilation She was started on IV fluid and IV antibiotics Pulmonary and neurology consultation requested Prognosis is guarded will follow closely
[2024-04-26 23:56] LABS: Glucose,Whole Blood 148 mg/dL (70-110)
[2024-04-27 04:32] LABS: ABG HCO3 31 mmol/L (21-25); ABG Oxygen Saturation 98.3 % (94-97); ABG PCO2 64 mmHg (35-45); ABG PH 7.29 (7.35-7.45); ABG PO2 108 mmHg (83-108); ABG TCO2 33 mmol/L (19-24)
[2024-04-27 04:34] LABS: Allen Test Performed? no
[2024-04-27 05:14] LABS: Basophils % (A) 0 %; Eosinophils % (A) 0 %; HCT 32.9 % (34.0-46.0); Hypochromasia Marked; Lymphocytes # (A) 0.2 k/uL (1.0-4.8); Lymphocytes % (A) 3 %; MCH 26.2 pg (25.0-35.0); MCHC 30.4 g/dL (31.0-37.0); MCV 86.4 fL (80.0-100.0); Mean Platelet Volume 8.4; Monocytes # (A) 0.3 k/uL (0-1.0); Monocytes % (A) 3 %; Neutrophils # (A) 8.5 k/uL (1.3-7.7); Neutrophils % (A) 93 %; Platelet Count 276 k/uL (150-450); RBC 3.81 m/uL (3.80-5.40); RDW 15.4 % (11.5-15.5); WBC 9.1 k/uL (3.8-10.6)
[2024-04-27 05:31] LABS: African American GFR (CKD) >90 (>60 ml/min/1.73 sqM); Anion Gap 1 mmol/L; Blood Urea Nitrogen 14 mg/dL (7-17); Carbon Dioxide 20 mmol/L (22-30); Chloride 119 mmol/L (98-107); Glucose 91 mg/dL (74-99); Non-African American GFR(CKD) >90 (>60 ml/min/1.73 sqM); Sodium 140 mmol/L (137-145)
[2024-04-27 05:59] LABS: Glucose,Whole Blood 149 mg/dL (70-110)
[2024-04-27 06:15] LABS: Basophils % (A) 0 %; Eosinophils % (A) 0 %; HCT 31.8 % (34.0-46.0); HGB 9.7 gm/dL (11.4-16.0); Hypochromasia Marked; Lymphocytes # (A) 0.2 k/uL (1.0-4.8); Lymphocytes % (A) 3 %; MCH 26.4 pg (25.0-35.0); MCHC 30.5 g/dL (31.0-37.0); MCV 86.6 fL (80.0-100.0); Mean Platelet Volume 7.9; Monocytes # (A) 0.3 k/uL (0-1.0); Monocytes % (A) 3 %; Neutrophils % (A) 93 %; Platelet Count 248 k/uL (150-450); RBC 3.67 m/uL (3.80-5.40); WBC 8.6 k/uL (3.8-10.6)
[2024-04-27 06:24] LABS: Sodium 135 mmol/L (137-145)
[2024-04-27 06:25] LABS: ALT 140 U/L (4-34); AST 82 U/L (14-36); African American GFR (CKD) >90 (>60 ml/min/1.73 sqM); Albumin 2.8 g/dL (3.5-5.0); Alkaline Phosphatase 51 U/L (38-126); Anion Gap -1 mmol/L; Blood Urea Nitrogen 22 mg/dL (7-17); Calcium 8.6 mg/dL (8.4-10.2); Carbon Dioxide 32 mmol/L (22-30); Chloride 104 mmol/L (98-107); Glucose 142 mg/dL (74-99); Non-African American GFR(CKD) >90 (>60 ml/min/1.73 sqM); Potassium 4.7 mmol/L (3.5-5.1); Total Bilirubin 0.2 mg/dL (0.2-1.3)
[2024-04-27] MEDS ORDERED: Potassium Replacement Protocol 1 EACH MISC MISCELLANE PRN (06:49)
[2024-04-27] MEDS ORDERED: CALCIUM GLUCONATE IN NACL 2 GM in SALINE 1 100ML.BAG IVPB ONE (07:00)
--- NOTE | 2024-04-27 08:38 | XR ---
EXAMINATION TYPE: XR chest 1V portable DATE OF EXAM: 04/27/2024 5:40 AM COMPARISON: Multiple radiographs, with the most recent on 04/26/2024 TECHNIQUE: XR chest 1V portable Portable AP radiograph of the chest. CLINICAL INDICATION:Female, 63 years old with history of mechanical ventilation; FINDINGS: Lungs/Pleura: There is no evidence of pleural effusion or pneumothorax. Hyperinflation. Similar scatt ered reticular opacities within the right lung. Left hilar endobronchial valves identified. Atelectas is of the portion of the medial aspect of the left upper lobe pulmonary artery. Pulmonary vascularity: Unremarkable. Heart/mediastinum: Cardiomediastinal silhouette is prominent in size. Musculoskeletal: No acute osseous pathology. Other findings: None Lines/Tubes: Endotracheal tube with distal tip 6.7 cm above the christina Nasogastric tube with its distal tip and side-port projecting under the diaphragm and projecting over the gastric lumen. IMPRESSION: 1. COPD changes with similar reticular opacities throughout the right lung likely representing pulmo nary fibrotic changes. Atelectasis change within the left upper lobe redemonstrated. 2. Stable support tubes. [facility], , 04/27/2024 8:36 AM
[2024-04-27] MEDS: FUROSEMIDE 10 MG/ML 4 ML VIAL IV STA (09:40)
--- NOTE | 2024-04-27 09:59 | P.PN ---
Subjective Progress Note Date: 04/27/24 Spring Burdick, is a 63-year-old female patient of Dr. Gibbs who presented to [facility] emergency room with a chief complaint of She was evaluated in the emergency room vital examination on presentation revealed a temperature of 95.5 pulse 114 respiration 24 blood pressure 88/65 pulse ox 98% on 4 L nasal cannula Laboratory data revealed a white blood count of 8.5 hemoglobin 11.2 platelet count 261 D-dimer 1.74 sodium 135 potassium 3.9 BUN 9 creatinine 0.42 glucose 144 troponin 0.012 influenza A and B RSV and COVID PCR are all negative Testing in the emergency room revealed chest x-ray done in the emergency room revealed left-sided airspace opacities suggestive of pneumonia, CT scan of the brain revealed scattered areas of tavera-white matter vasogenic edema with possible masses in the right frontal lobe and left posterior frontal lobe and right occipital parietal regions finding concerning for metastatic disease. During her stay in the emergency room patient had hypotension, she was resuscitated with IV fluid, however her condition continued to worsen, she became unresponsive, she was intubated sedated and admitted to intensive care unit, he was started on IV steroid. Pulmonary and neurology consultation were requested. On 04/25/2024 patient remains in the ICU on mechanical ventilation. Patient also currently on Levophed for pressure support. Per nursing staff patient requiring increased amounts of sedation. Neurology and critical care services are following will consult oncology services due to concerns of metastatic lesions in brain On 04/26/2024 patient was seen and examined in the ICU she is intubated sedated maintained on mechanical ventilation, her vent settings are assist-control rate 22 tidal volume 350 FiO2 40% and PEEP of 5 vital exam reveals a temperature of 98 pulse 78 respiration 22 blood pressure 98/53 pulse ox 99% on FiO2 40% white blood count 12.3 hemoglobin 10.6 platelet count 266 arterial blood gas revealed pH 7.24 pCO2 70 pO2 107 BUN 18 creatinine 0.43. Case was discussed in details with Dr. Morton today On 04/27/2024 patient remains in the ICU intubated and sedated on mechanical ventilation. Patient remains on propofol and fentanyl. Per nursing staff plans for possible extubation today per critical care services. Oncology services are also following for workup. Patient remains on small 1 to Levophed for pressure support Objective - Vital Signs Vital signs: Vital Signs Temp 98.5 F 04/27/24 08:00 Pulse 111 H 04/27/24 09:45 Resp 22 04/27/24 09:45 BP 113/65 04/27/24 09:45 Pulse Ox 97 04/27/24 09:45 FiO2 40 04/27/24 08:27 Intake & Output 04/26/24 04/27/24 04/27/24 18:59 06:59 18:59 Intake Total 2849.370 2007.055 423.735 Output Total 637 675 70 Balance 2212.370 1332.055 353.735 Weight 58.7 kg 61.7 kg Intake: IV 996 1014 171 .9 @ 10ml 120 130 20 Sodium Chloride 0.9% 1, 790 845 145 000 ml @ 75 mls/hr IV . [id number] BINA Rx#:[id number] cefTRIAXone 2 gm In 50 Sodium Chloride 0.9% 50 ml @ 100 mls/hr IVPB Q24HR BINA Rx#:[id number] pressure bag 36 39 6 Intake, IV Titration 243.370 413.055 117.735 Amount Norepinephrine 4 mg In 35.424 66.537 24.771 Sodium Chloride 0.9% 250 ml @ 0.03 MCG/KG/MIN 5. 185 mls/hr IV .Q24H BINA Rx#:[id number] fentaNYL (PF). 1,000 mcg 33.715 86.905 In Sodium Chloride 0.9% 80 ml @ 0.5 MCG/KG/HR 2. 73 mls/hr IV .Q24H BINA Rx #:[id number] propofoL 1,000 mg In 174.231 259.613 92.964 Empty Bag 1 bag @ 15 MCG/ KG/MIN 4.082 mls/hr IV . Q24H BINA Rx#:[id number] Tube Feeding 350 490 105 Other 1260 90 30 Output: Urine 635 675 70 Stool 2 Other: Voiding Method Indwelling Catheter Indwelling Catheter Indwelling Catheter # Bowel Movements 1 1 ABP, PAP, CO, CI - Last Documented Arterial Blood Pressure 88/70 - Exam Patient is intubated sedated maintained on mechanical ventilation HEENT head normocephalic and atraumatic Neck is supple no JVD no goiter no lymphadenopathy Chest exam reveals a scattered crackles bilaterally no wheezing Cardiac exam reveals regular heart sounds no gallops no murmurs Abdomen is soft nontender no organomegaly Extremity exam reveals no edema no cyanosis or clubbing - Labs CBC & Chem 7: 04/27/24 05:53 04/27/24 05:53 Labs: Abnormal Lab Results - Last 24 Hours (Table) 04/26/24 04/26/24 04/26/24 Range/Units 11:50 17:45 23:54 RBC (3.80-5.40) m/uL Hgb (11.4-16.0) gm/dL Hct (34.0-46.0) % MCHC (31.0-37.0) g/dL Neutrophils # (1.3-7.7) k/uL Lymphocytes # (1.0-4.8) k/uL ABG pH (7.35-7.45) ABG pCO2 (35-45) mmHg ABG HCO3 (21-25) mmol/L ABG Total CO2 (19-24) mmol/L ABG O2 Saturation (94-97) % Hemoglobin (11.4-16.0) gm/dL Sodium (137-145) mmol/L Potassium (3.5-5.1) mmol/L Chloride (98-107) mmol/L Carbon Dioxide (22-30) mmol/L BUN (7-17) mg/dL Creatinine (0.52-1.04) mg/dL Glucose (74-99) mg/dL POC Glucose (mg/dL) 168 H 132 H 148 H (70-110) mg/dL Calcium (8.4-10.2) mg/dL AST (14-36) U/L ALT (4-34) U/L Total Protein (6.3-8.2) g/dL Albumin (3.5-5.0) g/dL 04/27/24 04/27/24 04/27/24 Range/Units 04:27 04:27 04:28 RBC (3.80-5.40) m/uL Hgb 10.0 L (11.4-16.0) gm/dL Hct 32.9 L (34.0-46.0) % MCHC 30.4 L (31.0-37.0) g/dL Neutrophils # 8.5 H (1.3-7.7) k/uL Lymphocytes # 0.2 L (1.0-4.8) k/uL ABG pH 7.29 L (7.35-7.45) ABG pCO2 64 H (35-45) mmHg ABG HCO3 31 H (21-25) mmol/L ABG Total CO2 33 H (19-24) mmol/L ABG O2 Saturation 98.3 H (94-97) % Hemoglobin 9.8 L (11.4-16.0) gm/dL Sodium (137-145) mmol/L Potassium 3.0 L (3.5-5.1) mmol/L Chloride 119 H (98-107) mmol/L Carbon Dioxide 20 L (22-30) mmol/L BUN (7-17) mg/dL Creatinine 0.31 L (0.52-1.04) mg/dL Glucose (74-99) mg/dL POC Glucose (mg/dL) (70-110) mg/dL Calcium 5.0 L* (8.4-10.2) mg/dL AST (14-36) U/L ALT (4-34) U/L Total Protein (6.3-8.2) g/dL Albumin (3.5-5.0) g/dL 04/27/24 04/27/24 04/27/24 Range/Units 05:53 05:53 05:58 RBC 3.67 L (3.80-5.40) m/uL Hgb 9.7 L (11.4-16.0) gm/dL Hct 31.8 L (34.0-46.0) % MCHC 30.5 L (31.0-37.0) g/dL Neutrophils # 8.0 H (1.3-7.7) k/uL Lymphocytes # 0.2 L (1.0-4.8) k/uL ABG pH (7.35-7.45) ABG pCO2 (35-45) mmHg ABG HCO3 (21-25) mmol/L ABG Total CO2 (19-24) mmol/L ABG O2 Saturation (94-97) % Hemoglobin (11.4-16.0) gm/dL Sodium 135 L (137-145) mmol/L Potassium (3.5-5.1) mmol/L Chloride (98-107) mmol/L Carbon Dioxide 32 H (22-30) mmol/L BUN 22 H (7-17) mg/dL Creatinine 0.47 L (0.52-1.04) mg/dL Glucose 142 H (74-99) mg/dL POC Glucose (mg/dL) 149 H (70-110) mg/dL Calcium (8.4-10.2) mg/dL AST 82 H (14-36) U/L ALT 140 H (4-34) U/L Total Protein 5.0 L (6.3-8.2) g/dL Albumin 2.8 L (3.5-5.0) g/dL Microbiology - Last 24 Hours (Table) 04/23/24 11:50 Blood Culture - Preliminary Blood 04/24/24 16:25 Gram Stain - Final Sputum Sputum Culture - Final Kaitlin albicans Assessment and Plan Plan: Acute hypoxic respiratory failure Acute exacerbation of chronic obstructive pulmonary disease Hypotension with hypovolemic shock on presentation Altered mentation on presentation Evidence of metastatic brain lesions At this time patient is intubated sedated maintained on mechanical ventilation She was started on IV fluid and IV antibiotics Pulmonary and neurology consultation requested Prognosis is guarded will follow closely
--- NOTE | 2024-04-27 10:50 | P.PN ---
Subjective Progress Note Date: 04/26/24 Patient was seen for a follow-up. Patient currently on propofol 65 mcg/kg/min. Also on fentanyl 1 mg/h and also on Levophed 0.02. No seizure-like activity. Patient is sedated. Objective - Vital Signs Vital signs: Vital Signs Temp 98.1 F 04/26/24 20:00 Pulse 73 04/26/24 20:00 Resp 22 04/26/24 20:00 BP 88/55 04/26/24 19:00 Pulse Ox 97 04/26/24 20:00 FiO2 40 04/26/24 20:00 Intake & Output 04/26/24 04/26/24 04/27/24 06:59 18:59 06:59 Intake Total 5525.664 4268.370 354.18 Output Total 630 637 80 Balance 3207.130 1842.370 274.18 Weight 58.7 kg 58.7 kg Intake: IV 968 996 156 .9 @ 10ml 110 120 20 Sodium Chloride 0.9% 1, 825 790 130 000 ml @ 75 mls/hr IV . [id number] [facility] Rx#:[id number] cefTRIAXone 2 gm In 50 Sodium Chloride 0.9% 50 ml @ 100 mls/hr IVPB Q24HR BINA Rx#:[id number] pressure bag 33 36 6 Intake, IV Titration 287.175 243.370 98.18 Amount Norepinephrine 4 mg In 87.359 35.424 Sodium Chloride 0.9% 250 ml @ 0.03 MCG/KG/MIN 5. 185 mls/hr IV .Q24H BINA Rx#:[id number] fentaNYL (PF). 1,000 mcg 30.531 33.715 In Sodium Chloride 0.9% 80 ml @ 0.5 MCG/KG/HR 2. 73 mls/hr IV .Q24H [facility] Rx #:[id number] propofoL 1,000 mg In 169.285 174.231 98.18 Empty Bag 1 bag @ 15 MCG/ KG/MIN 4.082 mls/hr IV . Q24H [facility] Rx#:[id number] Oral 0 Tube Feeding 385 350 70 Other 90 1260 30 Output: Urine 630 635 80 Stool 2 Other: Voiding Method Indwelling Catheter Indwelling Catheter Indwelling Catheter # Bowel Movements 1 ABP, PAP, CO, CI - Last Documented Arterial Blood Pressure 102/53 - Exam Exam limited because patient sedated heavily with propofol and fentanyl. - Labs CBC & Chem 7: 04/27/24 05:53 04/27/24 05:53 Labs: Abnormal Lab Results - Last 24 Hours (Table) 04/25/24 04/26/24 04/26/24 Range/Units 23:23 00:59 04:32 WBC (3.8-10.6) k/uL Hgb (11.4-16.0) gm/dL MCHC (31.0-37.0) g/dL Neutrophils # (1.3-7.7) k/uL Lymphocytes # (1.0-4.8) k/uL ABG pH 7.24 L (7.35-7.45) ABG pCO2 70 H (35-45) mmHg ABG HCO3 30 H (21-25) mmol/L ABG Total CO2 32 H (19-24) mmol/L ABG O2 Saturation 97.8 H (94-97) % Hemoglobin 10.7 L (11.4-16.0) gm/dL BUN (7-17) mg/dL Creatinine (0.52-1.04) mg/dL Glucose (74-99) mg/dL POC Glucose (mg/dL) 148 H 163 H (70-110) mg/dL 04/26/24 04/26/24 04/26/24 Range/Units 05:00 05:00 05:15 WBC 12.3 H (3.8-10.6) k/uL Hgb 10.6 L (11.4-16.0) gm/dL MCHC 30.6 L (31.0-37.0) g/dL Neutrophils # 11.6 H (1.3-7.7) k/uL Lymphocytes # 0.2 L (1.0-4.8) k/uL ABG pH (7.35-7.45) ABG pCO2 (35-45) mmHg ABG HCO3 (21-25) mmol/L ABG Total CO2 (19-24) mmol/L ABG O2 Saturation (94-97) % Hemoglobin (11.4-16.0) gm/dL BUN 18 H (7-17) mg/dL Creatinine 0.43 L (0.52-1.04) mg/dL Glucose 121 H (74-99) mg/dL POC Glucose (mg/dL) 121 H (70-110) mg/dL 04/26/24 04/26/24 Range/Units 11:50 17:45 WBC (3.8-10.6) k/uL Hgb (11.4-16.0) gm/dL MCHC (31.0-37.0) g/dL Neutrophils # (1.3-7.7) k/uL Lymphocytes # (1.0-4.8) k/uL ABG pH (7.35-7.45) ABG pCO2 (35-45) mmHg ABG HCO3 (21-25) mmol/L ABG Total CO2 (19-24) mmol/L ABG O2 Saturation (94-97) % Hemoglobin (11.4-16.0) gm/dL BUN (7-17) mg/dL Creatinine (0.52-1.04) mg/dL Glucose (74-99) mg/dL POC Glucose (mg/dL) 168 H 132 H (70-110) mg/dL Microbiology - Last 24 Hours (Table) 04/24/24 16:25 Gram Stain - Final Sputum Sputum Culture - Final Kaitlin albicans 04/23/24 11:50 Blood Culture - Preliminary Blood Assessment and Plan Assessment: * Abnormal CT head with evidence of at least 3, perhaps 4 contrast-enhancing rounded lesions at the tavera-white junction. Suspect metastatic disease. Evaluate for primary. * Ventilator dependent respiratory failure, on mechanical ventilation * Metabolic encephalopathy * COPD exacerbation * Elevated pCO2 60 on arrival. * Hyponatremia * Hypotension, improved. Patient on norepinephrine and vasopressin * History of tobacco use Plan: * EEG was abnormal due to background slowing of mild to moderate degree. This is suggestive of generalized cerebral dysfunction as can be seen with toxic metabolic encephalopathy or related to diffuse structural brain abnormality, or medication effect. Clinical correlation is recommended. No definitive epileptiform activity was seen. * CT of abdomen pelvis revealed mild sludge within the gallbladder. Mild ascites and moderate to marked anasarca of the abdominal and pelvic soft tissues. No mass. * Hold off on antiepileptic medication. No seizures have been witnessed. If any seizures occur, will load with Keppra. * Treatment of underlying cardiopulmonary condition as per IM and critical care. * Possible extubation in the morning. Once extubated, we will perform MRI. If patient cannot be extubated, then would recommend transfer to higher level of care, where MRI can be performed for intubated patient. Then may need neurosurgical consultation. * If cannot have MRI by tomorrow, will check CT head for a follow-up.
[2024-04-27 11:18] LABS: Glucose,Whole Blood 139 mg/dL (70-110)
[2024-04-27] MEDS: DEXMEDETOMIDINE/0.9% NACL(PMX) 400 MCG in EMPTY BAG 1 BAG IV SCH (11:37)
[2024-04-27 12:34] LABS: ABG Base Excess 2.1 mmol/L; ABG HCO3 32 mmol/L (21-25); ABG Oxygen Saturation 99.3 % (94-97); ABG PO2 176 mmHg (83-108); ABG TCO2 35 mmol/L (19-24)
[2024-04-27 12:38] LABS: ABG PCO2 82 mmHg (35-45); Allen Test Performed? no
[2024-04-27] MEDS: levETIRAcetam IV 500 MG/5 ML VIAL IVP SCH (13:12)
[2024-04-27] MEDS: ONDANSETRON 4 MG/2 ML VIAL IVP STA (13:27)
[2024-04-27 14:20] LABS: ABG Base Excess 4.9 mmol/L; ABG HCO3 33 mmol/L (21-25); ABG Oxygen Saturation 99.8 % (94-97); ABG PH 7.28 (7.35-7.45); ABG PO2 195 mmHg (83-108); ABG TCO2 35 mmol/L (19-24)
[2024-04-27 14:48] LABS: ABG PCO2 71 mmHg (35-45); Allen Test Performed? no
--- NOTE | 2024-04-27 16:38 | P.PN ---
Subjective Progress Note Date: 04/27/24 63-year-old female with a history of significant COPD. In fact, I believe I see her in the office for her COPD. She apparently was seen today April 23, in the emergency department, for shortness of breath, which according to the ER member began about a month ago. Is been getting progressively worse, and the patient apparently had some altered mental status according to her . The patient was initially seen in the emergency department, by Dr. Obrien, one of the ER physicians, and, the patient apparently became unresponsive, and required intubation and mechanical ventilation. The patient is currently going to be evaluated and treated, in the intensive care unit. Her past medical history is primarily positive for COPD, and she was a former smoker. She apparently also has a history of a polyp in her sinuses. Current laboratory data includes a white count 8.5, hemoglobin 11.2, hematocrit 36.1, and a platelet count of 261,000. D-dimer was 1.74. Blood gases showed a pO2 greater than 420, pCO2 of 60, the pH is 7.28. This was on 100%. I do not know the vent settings. Sodium 135, potassium 3.9, chloride 95, CO2 34, BUN 9, creatinine 0.42. Glucose was 138. N-terminal proBNP was normal. Troponin was negative. Viral screen was negative. Chest x-ray shows cardiomegaly, and may be some infiltrate in the right lower lobe. In addition the trachea appears to be torturous, and there may be some sort of a mass in the right paratracheal region. CT scan of the brain initially showed scattered areas of tavera-white matter vasogenic edema with possible masses in the right frontal lobe left posterior frontal lobe and right occipital parietal region. CTA was negative for pulmonary embolism. There was evidence of severe emphysema, primarily in the upper lobes. There appears also be a endobronchial valve, in the left upper lobe. Postintubation chest x-ray shows better aeration of both lung staples, and an endotracheal tube which is about 3 cm above the tracheal christina. On 04/24/2024, I am seeing this patient in the intensive care unit. The patient was brought into us and respiratory failure and the patient remains intubated on mechanical ventilator. Apparently, she presented to us with worsening shortness of breath and altered mentation. In the emergency, the patient was intubated and placed on the mechanical ventilator. Of significance is development of met astatic lesions to the brain. CAT scan of the brain was done on 04/23/2024 and it showed multiple enhancing tavera/white matter junction masses and this involves the right frontal lobe measuring 11 mm, left frontal lobe measuring 11 mm and another lesion posteriorly measuring 4 mm in size. No hemorrhage. No mass effect. The exact source of those lesions are not clear. Those are assumed to be metastatic in nature. Meanwhile, the patient underwent a CT of the chest that showed no evidence of any pulmonary embolism. There was extensive emphysematous changes bilaterally and the patient has endobronchial valves in the left upper lobe and there are some atelectatic change in the left upper lobe medially. There is also moderate to severe emphysematous changes bilaterally. A questionable lymph node was seen in the upper abdominal area that needs to be further characterize. Noted, the patient has undergone a previous PET/CT on 02/17/2021 which I assume was done for cancer workup and at that time the patient was found to have a stable 1.5 x 0.8 cm right upper lobe pulmonary nodule that showed no significant metabolic activity and focal post inflammatory scar was suspected. The most recent CAT scan of the chest done during this current admission shows no suspicious pulmonary nodules. No focal consolidation. No airspace disease. At this point in time, the patient remains intubated on mechanical ventilator. The patient is on assist-control rate of 28, tidal volume of 350, FiO2 50% with a PEEP of 5. Blood gas shows a pH of 7.3 with a pCO2 of 52 and pO2 of 190. The patient is currently on KVO IV fluids. She is on a norepinephrine running at 0.08 mcg/kg/min and vasopressin physiologic dose at 0.03 units. The white cell count of 6.6 with hemoglobin 9.5 platelet count of 296. Sodium is at 133, BUN 14 with a creatinine of 0.4. Cultures are still pending for now. The patient's viral screen was negative, procalcitonin level is 0.03. Troponins are negative. LFTs are normal. The patient is currently on DuoNeb updrafts, IV Rocephin and Zithromax. The patient also on Decadron 4 mg IV every 6 hours. Sedated with propofol. IV fluids were at KVO. Based on low urine output, I recommended to start the patient on normal citrate of 75 cc an hour. On 04/25/2024, the patient remains intubated on mechanical ventilator. This morning, the patient is on propofol running at 70 mcg/kg/min. Will also add fentanyl to control her restlessness and agitation and sexually with a mechanical ventilator. She is assist-control mode with rate of 28, tidal volume of 350, FiO2 50% with a PEEP of 5. Blood gas showed a pH of 7.29 with a pCO2 58 and pO2 of 201. The patient had a follow-up chest x-ray that shows no acute abnormalities. ET tube needs to be advanced and appropriate recommendations were given. There are some reticular opacities throughout the right lung which was present earlier and are essentially unchanged. The patient remains on bronchodilators and the patient is currently on DuoNeb updrafts. The patient on IV Solu-Medrol 60 mg every 6 hours. The patient is on normal saline at rate of 75 cc an hour. Norepinephrine running at 0.01 mcg/kg/min and vasopressin has been discontinued. The patient was started on vital HP for enteral feeding for nutritional support and the patient is running at a rate of 35 cc an hour. Fluid balance is +2.6 L over the past 24 hours. Remains on IV Rocephin as an empiric antibiotic coverage. EEG was performed yesterday and showed no seizure activity and there is mild to moderate degree of slowing related to use of propofol. Patient was also seen by neurology. No other significant events overnight. Peak airway pressure remains elevated at 38. The patient has a positive auto PEEP. On 04/26/2024, patient is being seen for a follow-up. Remains intubated on mechanical ventilator. As mentioned earlier, the patient has advanced COPD. The patient also has metastatic [employer] lesions. Oncology is on the case. On today's evaluation, the patient remains sedated. She is on propofol running at 65 mcg/kg/min and fentanyl at 1 mcg/kg/h. She is on assist-control mode of mechanical ventilation at rate of 22, tidal volume of 350, FiO2 40% with a PEEP of 5. Blood gas showed a pH of 7.24 with a pCO2 17 pO2 of 107. Peak airway pressure is around 39. She is receiving fluid boluses and overnight, she received a total of 2 L and the patient is a positive fluid balance of 2.4 L over the past 24 hours. She remains on low-dose norepinephrine running at 0.02 mcg/kg/min. The patient remains on empiric antibiotic coverage with IV Rocephin. She remains on bronchodilators patient remains on IV Solu-Medrol 60 mg every 6 hours. White cell count of 12.3 with a hemoglobin 10.6 and a platelet count of 266. Sodium is at 139, potassium is at 4.4, BUN is 18 with a creatinine of 0.4. Sputum culture was positive for Kaitlin albicans. Blood cultures been negative.Echocardiogram was also obtained today and the patient was found to have normal ejection fraction of 55 to 60%, mild RV dilatation, moderate pulm hypertension, no significant valvular heart disease. On 04/27/2024, the patient remains intubated on mechanical ventilator. This morning, the patient had a propofol running at 60 mcg/kg/min and fentanyl running at 1 mcg/kg/h. The patient is arousable once off sedation. On today's evaluation, the patient's vent is set at a rate of 22, tidal volume of 350, FiO2 of 40% with a PEEP of 5. The blood gas showed a pH of 7.29 with a pCO2 of 64 and pO2 of 108. The peak airway pressure was at 37. Chest x-ray showed COPD with similar reticular opacities throughout the right lung and some atelectatic changes in the left upper lobe. ET tube in the rest of the lungs are all in place. No significant orotracheal secretions. The patient has a fluid balance of +3.5 L over the past 24 hours. She is receiving vital high-protein at rate of 35 cc an hour. She remains on normal saline at rate of 75 cc an hour. The patient remains on IV Rocephin. Remains on bronchodilators. Remains on IV Solu-Medrol. Remains on NovoLog sliding scale coverage. Keppra was also started for seizure prophylaxis. The rest of the blood work shows a white cell count of 8.6 with a hemoglobin 9.7 and a platelet count of 248. Sodium is at 135, potassium is at 4.7, BUN is 22 with a creatinine of 0.47. Serum bicarb is at 32. Calcium level is at 8.6. LFT shows a AST of 82, ALT of 140, alkaline phosphatase of 51. Albumin is at 2.8. Objective - Vital Signs Vital signs: Vital Signs Temp 98.5 F 04/27/24 08:00 Pulse 80 04/27/24 08:45 Resp 22 04/27/24 08:45 BP 97/56 04/27/24 08:45 Pulse Ox 98 04/27/24 08:45 FiO2 40 04/27/24 08:27 Intake & Output 04/26/24 04/27/24 04/27/24 18:59 06:59 18:59 Intake Total 2849.370 2007.055 235.245 Output Total 637 675 35 Balance 2212.370 1332.055 200.245 Weight 58.7 kg 61.7 kg Intake: IV 996 1014 78 .9 @ 10ml 120 130 10 Sodium Chloride 0.9% 1, 790 845 65 000 ml @ 75 mls/hr IV . [id number] [facility] Rx#:[id number] cefTRIAXone 2 gm In 50 Sodium Chloride 0.9% 50 ml @ 100 mls/hr IVPB Q24HR [facility] Rx#:[id number] pressure bag 36 39 3 Intake, IV Titration 243.370 413.055 92.245 Amount Norepinephrine 4 mg In 35.424 66.537 22.006 Sodium Chloride 0.9% 250 ml @ 0.03 MCG/KG/MIN 5. 185 mls/hr IV .Q24H [facility] Rx#:[id number] fentaNYL (PF). 1,000 mcg 33.715 86.905 In Sodium Chloride 0.9% 80 ml @ 0.5 MCG/KG/HR 2. 73 mls/hr IV .Q24H [facility] Rx #:[id number] propofoL 1,000 mg In 174.231 259.613 70.239 Empty Bag 1 bag @ 15 MCG/ KG/MIN 4.082 mls/hr IV . Q24H [facility] Rx#:[id number] Tube Feeding 350 490 35 Other 1260 90 30 Output: Urine 635 675 35 Stool 2 Other: Voiding Method Indwelling Catheter Indwelling Catheter Indwelling Catheter # Bowel Movements 1 1 ABP, PAP, CO, CI - Last Documented Arterial Blood Pressure 103/50 - Exam Calm and comfortable, intubated on mechanical ventilator. Orogastric and orotracheal tube are both in place. Currently on propofol. Grimaces to painful stimulation. Moving all 4 extremities without limitation. No seizure activity has been noted. HEENT examination is grossly unremarkable. Mucous membranes are moist. No oral lesions. Neck supple. Full range of motion. No adenopathy thyromegaly or neck vein dis tention. Cardiovascular examination reveals regular rhythm rate. S1-S2 normal. No S3 or S4. No discernible murmur noted. Lungs reveal scattered bilateral rhonchi and wheezes. Breath sounds are d iminished. No crackles. Breath sounds are equal. Abdomen soft bowel sounds are heard. No masses or tenderness. Extremities are intact. No cyanosis clubbing or edema. Skin is without rash or lesion. Neurologic examination is difficult to assess. - Labs CBC & Chem 7: 04/27/24 05:53 04/27/24 05:53 Labs: Abnormal Lab Results - Last 24 Hours (Table) 04/26/24 04/26/24 04/26/24 Range/Units 11:50 17:45 23:54 RBC (3.80-5.40) m/uL Hgb (11.4-16.0) gm/dL Hct (34.0-46.0) % MCHC (31.0-37.0) g/dL Neutrophils # (1.3-7.7) k/uL Lymphocytes # (1.0-4.8) k/uL ABG pH (7.35-7.45) ABG pCO2 (35-45) mmHg ABG HCO3 (21-25) mmol/L ABG Total CO2 (19-24) mmol/L ABG O2 Saturation (94-97) % Hemoglobin (11.4-16.0) gm/dL Sodium (137-145) mmol/L Potassium (3.5-5.1) mmol/L Chloride (98-107) mmol/L Carbon Dioxide (22-30) mmol/L BUN (7-17) mg/dL Creatinine (0.52-1.04) mg/dL Glucose (74-99) mg/dL POC Glucose (mg/dL) 168 H 132 H 148 H (70-110) mg/dL Calcium (8.4-10.2) mg/dL AST (14-36) U/L ALT (4-34) U/L Total Protein (6.3-8.2) g/dL Albumin (3.5-5.0) g/dL 04/27/24 04/27/24 04/27/24 Range/Units 04:27 04:27 04:28 RBC (3.80-5.40) m/uL Hgb 10.0 L (11.4-16.0) gm/dL Hct 32.9 L (34.0-46.0) % MCHC 30.4 L (31.0-37.0) g/dL Neutrophils # 8.5 H (1.3-7.7) k/uL Lymphocytes # 0.2 L (1.0-4.8) k/uL ABG pH 7.29 L (7.35-7.45) ABG pCO2 64 H (35-45) mmHg ABG HCO3 31 H (21-25) mmol/L ABG Total CO2 33 H (19-24) mmol/L ABG O2 Saturation 98.3 H (94-97) % Hemoglobin 9.8 L (11.4-16.0) gm/dL Sodium (137-145) mmol/L Potassium 3.0 L (3.5-5.1) mmol/L Chloride 119 H (98-107) mmol/L Carbon Dioxide 20 L (22-30) mmol/L BUN (7-17) mg/dL Creatinine 0.31 L (0.52-1.04) mg/dL Glucose (74-99) mg/dL POC Glucose (mg/dL) (70-110) mg/dL Calcium 5.0 L* (8.4-10.2) mg/dL AST (14-36) U/L ALT (4-34) U/L Total Protein (6.3-8.2) g/dL Albumin (3.5-5.0) g/dL 04/27/24 04/27/24 04/27/24 Range/Units 05:53 05:53 05:58 RBC 3.67 L (3.80-5.40) m/uL Hgb 9.7 L (11.4-16.0) gm/dL Hct 31.8 L (34.0-46.0) % MCHC 30.5 L (31.0-37.0) g/dL Neutrophils # 8.0 H (1.3-7.7) k/uL Lymphocytes # 0.2 L (1.0-4.8) k/uL ABG pH (7.35-7.45) ABG pCO2 (35-45) mmHg ABG HCO3 (21-25) mmol/L ABG Total CO2 (19-24) mmol/L ABG O2 Saturation (94-97) % Hemoglobin (11.4-16.0) gm/dL Sodium 135 L (137-145) mmol/L Potassium (3.5-5.1) mmol/L Chloride (98-107) mmol/L Carbon Dioxide 32 H (22-30) mmol/L BUN 22 H (7-17) mg/dL Creatinine 0.47 L (0.52-1.04) mg/dL Glucose 142 H (74-99) mg/dL POC Glucose (mg/dL) 149 H (70-110) mg/dL Calcium (8.4-10.2) mg/dL AST 82 H (14-36) U/L ALT 140 H (4-34) U/L Total Protein 5.0 L (6.3-8.2) g/dL Albumin 2.8 L (3.5-5.0) g/dL Microbiology - Last 24 Hours (Table) 04/23/24 11:50 Blood Culture - Preliminary Blood 04/24/24 16:25 Gram Stain - Final Sputum Sputum Culture - Final Kaitlin albicans Assessment and Plan Plan: Acute hypoxemic respiratory failure, secondary to COPD exacerbation. CT of the chest was noted and there is no evidence of any airspace disease or consolidation. No suspicious lung nodules or lesions. No significant mediastinal lymphadenopathy. The patient has moderate to severe emphysematous changes and she has evidence of endobronchial valve insertion in the left upper lobe that was done in outside facility. She has some atelectatic changes in the left upper lobe medially. No evidence of any airspace disease or pneumonia. Viral screen has been negative. Remains intubated on mechanical ventilator. Antibiotic coverage with IV Rocephin, empiric. Blood gases showing an acute on top of chronic hypoxic/hypercapnic respiratory failure. Diminished breath sounds bilaterally and the patient is less bronchospastic and wheezy. Peak airway pressure is around 36. Chest x-ray findings are essentially stable and unchanged. Advanced COPD with diffuse emphysematous changes and possible previous e ndobronchial valve insertion, details are not known. Hypotension, post intubation. Echocardiogram shows a preserved LV function with an ejection fraction of 55%. The hypotension is believed to be related to the sedation as the patient is currently on a combination of fentanyl drip and propofol drip. She remains on low-dose norepinephrine. Vasopressin has been discontinued. Previous history of a postinflammatory scar in the right upper lobe and a previous PET/CT that was done back in 2020 showed no significant metabolic activity Altered mentation with evidence of multiple lesions in the brain without any vasogenic edema. No mass effect. Those lesions are measuring 11 to 12 mm in si ze in the right frontal and left frontal and another 1 posteriorly. Obviously, metastatic disease is of a concern. Prior history of heavy tobacco use. Plan: Continue ventilator support. I had a nice discussion with the family. I believe that the patient has advanced and end-stage COPD. Obviously, she is not going to be following routine protocols for weaning. As such, I made recommendations to extubate the patient to a BiPAP and monitor her progress. I anticipate that the patient may encounter some difficulties postextubation. Nevertheless, keeping on a mechanical ventilator is send she is going to make the patient progressively more weak and debilitated. Based on that, I am going to extubate the patient to a BiPAP. I made recommendations to stop the propofol and fentanyl and use Precedex if needed. IV Solu-Medrol 60 mg every 6 hours. IV Rocephin as empiric antibiotic coverage. Blood cultures Sputum cultures, positive for Kaitlin albicans EEG showed no evidence of any seizure activity, the patient is currently on Keppra IV fluids with normal saline at rate of 75 cc an hour Will give the patient a dose of Lasix Wean off pressors minimal dose of norepinephrine Obtain a CAT scan of the abdomen and pelvis was negative for any malignancy. Condition is critical Will continue to follow make further recommendations based on her progress. This evaluation was done in 40 minutes. I had a nice discussion with her and daughter at the bedside. Time with Patient: Greater than 30
--- NOTE | 2024-04-27 16:57 | P.PN ---
Subjective Progress Note Date: 04/27/24 Principal diagnosis: brain lesions In f/u today pt is extubated about 30 min before seen, she is on bi-pap, family is at bedside and updated on pt clinical course from Onc perspective. Pt did follow nursing commands. Objective - Vital Signs Vital signs: Vital Signs Temp 97.6 F 04/27/24 16:00 Pulse 70 04/27/24 16:22 Resp 11 L 04/27/24 16:00 BP 91/64 04/27/24 15:00 Pulse Ox 99 04/27/24 16:00 FiO2 50 04/27/24 16:09 Intake & Output 04/26/24 04/27/24 04/27/24 18:59 06:59 18:59 Intake Total 2849.370 2007.055 1259.787 Output Total 384 559 5238 Balance 2212.370 1332.055 -185.213 Weight 58.7 kg 61.7 kg Intake: IV 996 1014 822 .9 @ 10ml 120 130 90 Sodium Chloride 0.9% 1, 790 845 705 000 ml @ 75 mls/hr IV . [id number] [facility] Rx#:[id number] cefTRIAXone 2 gm In 50 Sodium Chloride 0.9% 50 ml @ 100 mls/hr IVPB Q24HR [facility] Rx#:[id number] pressure bag 36 39 27 Intake, IV Titration 243.370 413.055 232.787 Amount Dexmedetomidine/0.9% NaCl 60.415 (Pmx) 400 mcg In Empty Bag 1 bag @ 0.2 MCG/KG/HR 3.085 mls/hr IV .Q24H [facility] Rx#:[id number] Norepinephrine 4 mg In 35.424 66.537 27.594 Sodium Chloride 0.9% 250 ml @ 0.03 MCG/KG/MIN 5. 185 mls/hr IV .Q24H [facility] Rx#:[id number] fentaNYL (PF). 1,000 mcg 33.715 86.905 48.139 In Sodium Chloride 0.9% 80 ml @ 0.5 MCG/KG/HR 2. 73 mls/hr IV .Q24H [facility] Rx #:[id number] propofoL 1,000 mg In 174.231 259.613 96.639 Empty Bag 1 bag @ 15 MCG/ KG/MIN 4.082 mls/hr IV . Q24H [facility] Rx#:[id number] Tube Feeding 350 490 175 Other 1260 90 30 Output: Urine 924 400 6165 Stool 2 Other: Voiding Method Indwelling Catheter Indwelling Catheter Indwelling Catheter # Bowel Movements 1 1 ABP, PAP, CO, CI - Last Documented Arterial Blood Pressure 114/107 - Constitutional General appearance: Present: cooperative, mild distress, thin - EENT Eyes: Present: anicteric sclerae, EOMI ENT: Present: hearing grossly normal - Peripheral edema leg Peripheral Edema: bilateral: None - Labs CBC & Chem 7: 04/27/24 05:53 04/27/24 05:53 Labs: Abnormal Lab Results - Last 24 Hours (Table) 04/26/24 04/26/24 04/27/24 Range/Units 17:45 23:54 04:27 RBC (3.80-5.40) m/uL Hgb 10.0 L (11.4-16.0) gm/dL Hct 32.9 L (34.0-46.0) % MCHC 30.4 L (31.0-37.0) g/dL Neutrophils # 8.5 H (1.3-7.7) k/uL Lymphocytes # 0.2 L (1.0-4.8) k/uL ABG pH (7.35-7.45) ABG pCO2 (35-45) mmHg ABG pO2 (83-108) mmHg ABG HCO3 (21-25) mmol/L ABG Total CO2 (19-24) mmol/L ABG O2 Saturation (94-97) % Hemoglobin (11.4-16.0) gm/dL Sodium (137-145) mmol/L Potassium (3.5-5.1) mmol/L Chloride (98-107) mmol/L Carbon Dioxide (22-30) mmol/L BUN (7-17) mg/dL Creatinine (0.52-1.04) mg/dL Glucose (74-99) mg/dL POC Glucose (mg/dL) 132 H 148 H (70-110) mg/dL Calcium (8.4-10.2) mg/dL AST (14-36) U/L ALT (4-34) U/L Total Protein (6.3-8.2) g/dL Albumin (3.5-5.0) g/dL 04/27/24 04/27/24 04/27/24 Range/Units 04:27 04:28 05:53 RBC 3.67 L (3.80-5.40) m/uL Hgb 9.7 L (11.4-16.0) gm/dL Hct 31.8 L (34.0-46.0) % MCHC 30.5 L (31.0-37.0) g/dL Neutrophils # 8.0 H (1.3-7.7) k/uL Lymphocytes # 0.2 L (1.0-4.8) k/uL ABG pH 7.29 L (7.35-7.45) ABG pCO2 64 H (35-45) mmHg ABG pO2 (83-108) mmHg ABG HCO3 31 H (21-25) mmol/L ABG Total CO2 33 H (19-24) mmol/L ABG O2 Saturation 98.3 H (94-97) % Hemoglobin 9.8 L (11.4-16.0) gm/dL Sodium (137-145) mmol/L Potassium 3.0 L (3.5-5.1) mmol/L Chloride 119 H (98-107) mmol/L Carbon Dioxide 20 L (22-30) mmol/L BUN (7-17) mg/dL Creatinine 0.31 L (0.52-1.04) mg/dL Glucose (74-99) mg/dL POC Glucose (mg/dL) (70-110) mg/dL Calcium 5.0 L* (8.4-10.2) mg/dL AST (14-36) U/L ALT (4-34) U/L Total Protein (6.3-8.2) g/dL Albumin (3.5-5.0) g/dL 04/27/24 04/27/24 04/27/24 Range/Units 05:53 05:58 11:17 RBC (3.80-5.40) m/uL Hgb (11.4-16.0) gm/dL Hct (34.0-46.0) % MCHC (31.0-37.0) g/dL Neutrophils # (1.3-7.7) k/uL Lymphocytes # (1.0-4.8) k/uL ABG pH (7.35-7.45) ABG pCO2 (35-45) mmHg ABG pO2 (83-108) mmHg ABG HCO3 (21-25) mmol/L ABG Total CO2 (19-24) mmol/L ABG O2 Saturation (94-97) % Hemoglobin (11.4-16.0) gm/dL Sodium 135 L (137-145) mmol/L Potassium (3.5-5.1) mmol/L Chloride (98-107) mmol/L Carbon Dioxide 32 H (22-30) mmol/L BUN 22 H (7-17) mg/dL Creatinine 0.47 L (0.52-1.04) mg/dL Glucose 142 H (74-99) mg/dL POC Glucose (mg/dL) 149 H 139 H (70-110) mg/dL Calcium (8.4-10.2) mg/dL AST 82 H (14-36) U/L ALT 140 H (4-34) U/L Total Protein 5.0 L (6.3-8.2) g/dL Albumin 2.8 L (3.5-5.0) g/dL 04/27/24 04/27/24 Range/Units 12:32 14:16 RBC (3.80-5.40) m/uL Hgb (11.4-16.0) gm/dL Hct (34.0-46.0) % MCHC (31.0-37.0) g/dL Neutrophils # (1.3-7.7) k/uL Lymphocytes # (1.0-4.8) k/uL ABG pH 7.20 L 7.28 L (7.35-7.45) ABG pCO2 82 H* 71 H* (35-45) mmHg ABG pO2 176 H 195 H (83-108) mmHg ABG HCO3 32 H 33 H (21-25) mmol/L ABG Total CO2 35 H 35 H (19-24) mmol/L ABG O2 Saturation 99.3 H 99.8 H (94-97) % Hemoglobin 10.2 L (11.4-16.0) gm/dL Sodium (137-145) mmol/L Potassium (3.5-5.1) mmol/L Chloride (98-107) mmol/L Carbon Dioxide (22-30) mmol/L BUN (7-17) mg/dL Creatinine (0.52-1.04) mg/dL Glucose (74-99) mg/dL POC Glucose (mg/dL) (70-110) mg/dL Calcium (8.4-10.2) mg/dL AST (14-36) U/L ALT (4-34) U/L Total Protein (6.3-8.2) g/dL Albumin (3.5-5.0) g/dL Microbiology - Last 24 Hours (Table) 04/23/24 11:50 Blood Culture - Preliminary Blood Assessment and Plan (1) Vasogenic edema Current Visit: Yes Status: Acute Priority: High Code(s): G93.6 - CEREBRAL EDEMA SNOMED Code(s): 035243281 Plan: Brain lesions with vasogenic edema -Able to obtain what information we could from the chart. Patient does have an extensive history of smoking, COPD. Concern that findings in the brain represent a malignant process. -CT of the chest did not show any lung masses, mediastinal lymphadenopathy, or suspicious lesions. No PE. A retroperitoneal lymph node was noted. -CT AP did not reveal any mass or lesion. -Agree with continuing steroids for vasogenic edema for now -Discussed case briefly with Neurologist. Plan for MRI of the brain to clarify brain lesions once pt more stable. Pt family deferred to [employer] for summary of hospital course otherwise We will continue to follow along with patient's clinical course, further recommendations to follow from a Medical Oncology standpoint.
[2024-04-27 17:41] LABS: Glucose,Whole Blood 132 mg/dL (70-110)
[2024-04-27 17:50] LABS: Glucose,Whole Blood 131 mg/dL (70-110)
[2024-04-27 20:12] LABS: ABG Base Excess 2.5 mmol/L; ABG HCO3 33 mmol/L (21-25); ABG Oxygen Saturation 97.6 % (94-97); ABG PO2 113 mmHg (83-108); ABG TCO2 36 mmol/L (19-24); Allen Test Performed? Yes
[2024-04-27 20:14] LABS: ABG PCO2 94 mmHg (35-45); ABG PH 7.16 (7.35-7.45)
[2024-04-27 21:27] LABS: ABG Base Excess 3.9 mmol/L; ABG HCO3 33 mmol/L (21-25); ABG PH 7.25 (7.35-7.45); ABG PO2 130 mmHg (83-108); ABG TCO2 35 mmol/L (19-24); Allen Test Performed? Yes
[2024-04-27 21:28] LABS: ABG PCO2 74 mmHg (35-45)
--- NOTE | 2024-04-27 22:28 | P.PN ---
Subjective Progress Note Date: 04/27/24 Patient was seen for a follow-up. Patient was extubated an hour ago. Patient on BiPAP at this time. Uncertain if patient will hold on her own. Concerns about requiring reintubation. Family mentions that patient has smoked one and half pack per day for 20-30 years. Quit in 2019. She is on home oxygen at 3.5 L per minute. Patient at present is to having some headache. She has sinus issues. Per nursing report, patient had some episode of restlessness, and then became unresponsive. Her eyes were up. No obvious convulsion was noted however. Patient's mentions that patient has "3 valves" in the lungs. Objective - Vital Signs Vital signs: Vital Signs Temp 96.5 F L 04/27/24 22:00 Pulse 71 04/27/24 22:00 Resp 16 04/27/24 22:00 BP 163/102 04/27/24 20:00 Pulse Ox 98 04/27/24 22:00 FiO2 50 04/27/24 20:40 Intake & Output 04/27/24 04/27/24 04/28/24 06:59 18:59 06:59 Intake Total 2007.055 1468.154 352.581 Output Total 675 1540 180 Balance 1332.055 -71.846 172.581 Weight 61.7 kg Intake: IV 1014 1008 327 .9 @ 10ml 130 110 40 Sodium Chloride 0.9% 1, 845 865 275 000 ml @ 75 mls/hr IV . [id number] [facility] Rx#:[id number] pressure bag 39 33 12 Intake, IV Titration 413.055 255.154 25.581 Amount Dexmedetomidine/0.9% NaCl 82.782 25.581 (Pmx) 400 mcg In Empty Bag 1 bag @ 0.2 MCG/KG/HR 3.085 mls/hr IV .Q24H [facility] Rx#:[id number] Norepinephrine 4 mg In 66.537 27.594 Sodium Chloride 0.9% 250 ml @ 0.03 MCG/KG/MIN 5. 185 mls/hr IV .Q24H [facility] Rx#:[id number] fentaNYL (PF). 1,000 mcg 86.905 48.139 In Sodium Chloride 0.9% 80 ml @ 0.5 MCG/KG/HR 2. 73 mls/hr IV .Q24H [facility] Rx #:[id number] propofoL 1,000 mg In 259.613 96.639 Empty Bag 1 bag @ 15 MCG/ KG/MIN 4.082 mls/hr IV . Q24H [facility] Rx#:[id number] Tube Feeding 490 175 Other 90 30 Output: Urine 675 1540 180 Other: Voiding Method Indwelling Catheter Indwelling Catheter Indwelling Catheter # Bowel Movements 1 ABP, PAP, CO, CI - Last Documented Arterial Blood Pressure 75/66 - Exam Patient is alert and awake. She has BiPAP on. Patient appears slightly in distress, also appears emotional. Patient's and daughters were present. Patient does move extremities. Patient did not cooperate with examination because of her breathing difficulty. - Labs CBC & Chem 7: 04/27/24 05:53 04/27/24 05:53 Labs: Abnormal Lab Results - Last 24 Hours (Table) 04/26/24 04/27/24 04/27/24 Range/Units 23:54 04:27 04:27 RBC (3.80-5.40) m/uL Hgb 10.0 L (11.4-16.0) gm/dL Hct 32.9 L (34.0-46.0) % MCHC 30.4 L (31.0-37.0) g/dL Neutrophils # 8.5 H (1.3-7.7) k/uL Lymphocytes # 0.2 L (1.0-4.8) k/uL ABG pH (7.35-7.45) ABG pCO2 (35-45) mmHg ABG pO2 (83-108) mmHg ABG HCO3 (21-25) mmol/L ABG Total CO2 (19-24) mmol/L ABG O2 Saturation (94-97) % Hemoglobin (11.4-16.0) gm/dL Sodium (137-145) mmol/L Potassium 3.0 L (3.5-5.1) mmol/L Chloride 119 H (98-107) mmol/L Carbon Dioxide 20 L (22-30) mmol/L BUN (7-17) mg/dL Creatinine 0.31 L (0.52-1.04) mg/dL Glucose (74-99) mg/dL POC Glucose (mg/dL) 148 H (70-110) mg/dL Calcium 5.0 L* (8.4-10.2) mg/dL AST (14-36) U/L ALT (4-34) U/L Total Protein (6.3-8.2) g/dL Albumin (3.5-5.0) g/dL 04/27/24 04/27/24 04/27/24 Range/Units 04:28 05:53 05:53 RBC 3.67 L (3.80-5.40) m/uL Hgb 9.7 L (11.4-16.0) gm/dL Hct 31.8 L (34.0-46.0) % MCHC 30.5 L (31.0-37.0) g/dL Neutrophils # 8.0 H (1.3-7.7) k/uL Lymphocytes # 0.2 L (1.0-4.8) k/uL ABG pH 7.29 L (7.35-7.45) ABG pCO2 64 H (35-45) mmHg ABG pO2 (83-108) mmHg ABG HCO3 31 H (21-25) mmol/L ABG Total CO2 33 H (19-24) mmol/L ABG O2 Saturation 98.3 H (94-97) % Hemoglobin 9.8 L (11.4-16.0) gm/dL Sodium 135 L (137-145) mmol/L Potassium (3.5-5.1) mmol/L Chloride (98-107) mmol/L Carbon Dioxide 32 H (22-30) mmol/L BUN 22 H (7-17) mg/dL Creatinine 0.47 L (0.52-1.04) mg/dL Glucose 142 H (74-99) mg/dL POC Glucose (mg/dL) (70-110) mg/dL Calcium (8.4-10.2) mg/dL AST 82 H (14-36) U/L ALT 140 H (4-34) U/L Total Protein 5.0 L (6.3-8.2) g/dL Albumin 2.8 L (3.5-5.0) g/dL 04/27/24 04/27/24 04/27/24 Range/Units 05:58 11:17 12:32 RBC (3.80-5.40) m/uL Hgb (11.4-16.0) gm/dL Hct (34.0-46.0) % MCHC (31.0-37.0) g/dL Neutrophils # (1.3-7.7) k/uL Lymphocytes # (1.0-4.8) k/uL ABG pH 7.20 L (7.35-7.45) ABG pCO2 82 H* (35-45) mmHg ABG pO2 176 H (83-108) mmHg ABG HCO3 32 H (21-25) mmol/L ABG Total CO2 35 H (19-24) mmol/L ABG O2 Saturation 99.3 H (94-97) % Hemoglobin (11.4-16.0) gm/dL Sodium (137-145) mmol/L Potassium (3.5-5.1) mmol/L Chloride (98-107) mmol/L Carbon Dioxide (22-30) mmol/L BUN (7-17) mg/dL Creatinine (0.52-1.04) mg/dL Glucose (74-99) mg/dL POC Glucose (mg/dL) 149 H 139 H (70-110) mg/dL Calcium (8.4-10.2) mg/dL AST (14-36) U/L ALT (4-34) U/L Total Protein (6.3-8.2) g/dL Albumin (3.5-5.0) g/dL 04/27/24 04/27/24 04/27/24 Range/Units 14:16 17:46 17:48 RBC (3.80-5.40) m/uL Hgb (11.4-16.0) gm/dL Hct (34.0-46.0) % MCHC (31.0-37.0) g/dL Neutrophils # (1.3-7.7) k/uL Lymphocytes # (1.0-4.8) k/uL ABG pH 7.28 L (7.35-7.45) ABG pCO2 71 H* (35-45) mmHg ABG pO2 195 H (83-108) mmHg ABG HCO3 33 H (21-25) mmol/L ABG Total CO2 35 H (19-24) mmol/L ABG O2 Saturation 99.8 H (94-97) % Hemoglobin 10.2 L (11.4-16.0) gm/dL Sodium (137-145) mmol/L Potassium (3.5-5.1) mmol/L Chloride (98-107) mmol/L Carbon Dioxide (22-30) mmol/L BUN (7-17) mg/dL Creatinine (0.52-1.04) mg/dL Glucose (74-99) mg/dL POC Glucose (mg/dL) 132 H 131 H (70-110) mg/dL Calcium (8.4-10.2) mg/dL AST (14-36) U/L ALT (4-34) U/L Total Protein (6.3-8.2) g/dL Albumin (3.5-5.0) g/dL 04/27/24 04/27/24 Range/Units 20:06 21:23 RBC (3.80-5.40) m/uL Hgb (11.4-16.0) gm/dL Hct (34.0-46.0) % MCHC (31.0-37.0) g/dL Neutrophils # (1.3-7.7) k/uL Lymphocytes # (1.0-4.8) k/uL ABG pH 7.16 L* 7.25 L (7.35-7.45) ABG pCO2 94 H* 74 H* (35-45) mmHg ABG pO2 113 H 130 H (83-108) mmHg ABG HCO3 33 H 33 H (21-25) mmol/L ABG Total CO2 36 H 35 H (19-24) mmol/L ABG O2 Saturation 97.6 H 99.0 H (94-97) % Hemoglobin 11.3 L 10.4 L (11.4-16.0) gm/dL Sodium (137-145) mmol/L Potassium (3.5-5.1) mmol/L Chloride (98-107) mmol/L Carbon Dioxide (22-30) mmol/L BUN (7-17) mg/dL Creatinine (0.52-1.04) mg/dL Glucose (74-99) mg/dL POC Glucose (mg/dL) (70-110) mg/dL Calcium (8.4-10.2) mg/dL AST (14-36) U/L ALT (4-34) U/L Total Protein (6.3-8.2) g/dL Albumin (3.5-5.0) g/dL Microbiology - Last 24 Hours (Table) 04/23/24 11:50 Blood Culture - Preliminary Blood Assessment and Plan Assessment: * Abnormal CT head with evidence of at least 3, perhaps 4 contrast-enhancing rounded lesions at the tavera-white junction. Suspect metastatic disease. So far no evidence of primary. * Status post extubation 04/27/2024 * Metabolic encephalopathy * COPD exacerbation * Elevated pCO2 60 on arrival. * Hyponatremia * Hypotension, improved. Patient on norepinephrine and vasopressin * History of tobacco use Plan: * EEG was abnormal due to background slowing of mild to moderate degree. This is suggestive of generalized cerebral dysfunction as can be seen with toxic metabolic encephalopathy or related to diffuse structural brain abnormality, or medication effect. Clinical correlation is recommended. No definitive epileptiform activity was seen. * CT of abdomen pelvis revealed mild sludge within the gallbladder. Mild ascites and moderate to marked anasarca of the abdominal and pelvic soft tissues. No mass. * Patient had some unclear spell of unresponsiveness. We will empirically start Keppra 500 mg twice a day. * Treatment of underlying cardiopulmonary condition as per IM and critical care. * Recommended MRI of the brain with and without contrast. * If cannot have MRI by tomorrow, will check CT head for a follow-up. * Discussed with oncology team. Patient currently on methylprednisolone 60 g IV every 6 hours. * Patient on ceftriaxone 2 g every 24 hours.
[2024-04-27 23:56] LABS: Glucose,Whole Blood 126 mg/dL (70-110)
[2024-04-28 05:02] LABS: Basophils % (A) 0 %; Eosinophils % (A) 0 %; HCT 35.3 % (34.0-46.0); HGB 10.6 gm/dL (11.4-16.0); Hypochromasia Marked; Lymphocytes # (A) 0.4 k/uL (1.0-4.8); Lymphocytes % (A) 4 %; MCHC 29.9 g/dL (31.0-37.0); MCV 86.8 fL (80.0-100.0); Mean Platelet Volume 7.5; Monocytes # (A) 0.6 k/uL (0-1.0); Monocytes % (A) 6 %; Neutrophils # (A) 8.9 k/uL (1.3-7.7); Neutrophils % (A) 89 %; Platelet Count 237 k/uL (150-450); RBC 4.07 m/uL (3.80-5.40); WBC 9.9 k/uL (3.8-10.6)
[2024-04-28 05:12] LABS: African American GFR (CKD) >90 (>60 ml/min/1.73 sqM); Anion Gap 2 mmol/L; Blood Urea Nitrogen 31 mg/dL (7-17); Calcium 8.4 mg/dL (8.4-10.2); Carbon Dioxide 34 mmol/L (22-30); Chloride 102 mmol/L (98-107); Glucose 140 mg/dL (74-99); Non-African American GFR(CKD) >90 (>60 ml/min/1.73 sqM); Potassium 4.5 mmol/L (3.5-5.1); Sodium 138 mmol/L (137-145)
[2024-04-28 05:35] LABS: Glucose,Whole Blood 164 mg/dL (70-110)
--- NOTE | 2024-04-28 08:09 | XR ---
EXAMINATION TYPE: XR chest 1V portable DATE OF EXAM: 04/28/2024 5:00 AM COMPARISON: Multiple radiographs, with the most recent on 04/27/2024 TECHNIQUE: XR chest 1V portable Portable AP radiograph of the chest. CLINICAL INDICATION:Female, 63 years old with history of mechanical ventilation; FINDINGS: Patient is rotated which limits evaluation. Lungs/Pleura: There is no evidence of pleural effusion or pneumothorax. Hyperinflation. Similar scatt ered reticular opacities within the right lung. Left hilar endobronchial valves identified. Atelectas is of the portion of the medial aspect of the left upper lobe pulmonary artery. Pulmonary vascularity: Unremarkable. Heart/mediastinum: Cardiomediastinal silhouette is prominent in size. Musculoskeletal: No acute osseous pathology. Other findings: Interval removal of endotracheal and NG tubes. IMPRESSION: 1. Interval removal of endotracheal and NG tubes. 2. COPD changes with similar reticular opacities throughout the right lung likely representing pulmo nary fibrotic changes. Atelectasis change within the left upper lobe redemonstrated. [facility], , 04/28/2024 8:07 AM
--- NOTE | 2024-04-28 09:42 | P.PN ---
Subjective Progress Note Date: 04/28/24 Spring Burdick, is a 63-year-old female patient of Dr. Gibbs who presented to [facility] emergency room with a chief complaint of She was evaluated in the emergency room vital examination on presentation revealed a temperature of 95.5 pulse 114 respiration 24 blood pressure 88/65 pulse ox 98% on 4 L nasal cannula Laboratory data revealed a white blood count of 8.5 hemoglobin 11.2 platelet count 261 D-dimer 1.74 sodium 135 potassium 3.9 BUN 9 creatinine 0.42 glucose 144 troponin 0.012 influenza A and B RSV and COVID PCR are all negative Testing in the emergency room revealed chest x-ray done in the emergency room revealed left-sided airspace opacities suggestive of pneumonia, CT scan of the brain revealed scattered areas of tavera-white matter vasogenic edema with possible masses in the right frontal lobe and left posterior frontal lobe and right occipital parietal regions finding concerning for metastatic disease. During her stay in the emergency room patient had hypotension, she was resuscitated with IV fluid, however her condition continued to worsen, she became unresponsive, she was intubated sedated and admitted to intensive care unit, he was started on IV steroid. Pulmonary and neurology consultation were requested. On 04/25/2024 patient remains in the ICU on mechanical ventilation. Patient also currently on Levophed for pressure support. Per nursing staff patient requiring increased amounts of sedation. Neurology and critical care services are following will consult oncology services due to concerns of metastatic lesions in brain On 04/26/2024 patient was seen and examined in the ICU she is intubated sedated maintained on mechanical ventilation, her vent settings are assist-control rate 22 tidal volume 350 FiO2 40% and PEEP of 5 vital exam reveals a temperature of 98 pulse 78 respiration 22 blood pressure 98/53 pulse ox 99% on FiO2 40% white blood count 12.3 hemoglobin 10.6 platelet count 266 arterial blood gas revealed pH 7.24 pCO2 70 pO2 107 BUN 18 creatinine 0.43. Case was discussed in details with Dr. Morton today On 04/27/2024 patient remains in the ICU intubated and sedated on mechanical ventilation. Patient remains on propofol and fentanyl. Per nursing staff plans for possible extubation today per critical care services. Oncology services are also following for workup. Patient remains on small 1 to Levophed for pressure support On 04/28/2024 patient remains in the ICU. Patient was extubated yesterday to BiPAP. Patient remains confused and on Precedex. retail area manager at bedside. Neurology services recommending MRI of the brain but unable to do at this time due to BiPAP and increased confusion. Neurology, critical care and oncology services are all following Objective - Vital Signs Vital signs: Vital Signs Temp 97.5 F L 04/28/24 04:00 Pulse 62 04/28/24 08:20 Resp 21 04/28/24 07:00 BP 97/63 04/28/24 07:00 Pulse Ox 98 04/28/24 07:00 FiO2 50 04/28/24 08:07 Intake & Output 04/27/24 04/28/24 04/28/24 18:59 06:59 18:59 Intake Total 9934.763 8280.869 125.459 Output Total 1540 510 40 Balance -71.846 678.869 85.459 Weight 60.7 kg Intake: IV 1008 951 78 .9 @ 10ml 110 120 10 Sodium Chloride 0.9% 1, 865 795 65 000 ml @ 75 mls/hr IV . [id number] [facility] Rx#:[id number] pressure bag 33 36 3 Intake, IV Titration 255.154 237.869 47.459 Amount Dexmedetomidine/0.9% NaCl 82.782 237.869 47.459 (Pmx) 400 mcg In Empty Bag 1 bag @ 0.2 MCG/KG/HR 3.085 mls/hr IV .Q24H [facility] Rx#:[id number] Norepinephrine 4 mg In 27.594 Sodium Chloride 0.9% 250 ml @ 0.03 MCG/KG/MIN 5. 185 mls/hr IV .Q24H [facility] Rx#:[id number] fentaNYL (PF). 1,000 mcg 48.139 In Sodium Chloride 0.9% 80 ml @ 0.5 MCG/KG/HR 2. 73 mls/hr IV .Q24H [facility] Rx #:[id number] propofoL 1,000 mg In 96.639 Empty Bag 1 bag @ 15 MCG/ KG/MIN 4.082 mls/hr IV . Q24H [facility] Rx#:[id number] Tube Feeding 175 Other 30 Output: Urine 1540 510 40 Other: Voiding Method Indwelling Catheter Indwelling Catheter ABP, PAP, CO, CI - Last Documented Arterial Blood Pressure 88/47 - Exam Patient is intubated sedated maintained on mechanical ventilation HEENT head normocephalic and atraumatic Neck is supple no JVD no goiter no lymphadenopathy Chest exam reveals a scattered crackles bilaterally no wheezing Cardiac exam reveals regular heart sounds no gallops no murmurs Abdomen is soft nontender no organomegaly Extremity exam reveals no edema no cyanosis or clubbing - Labs CBC & Chem 7: 04/28/24 04:50 04/28/24 04:50 Labs: Abnormal Lab Results - Last 24 Hours (Table) 04/27/24 04/27/24 04/27/24 Range/Units 11:17 12:32 14:16 Hgb (11.4-16.0) gm/dL MCHC (31.0-37.0) g/dL Neutrophils # (1.3-7.7) k/uL Lymphocytes # (1.0-4.8) k/uL ABG pH 7.20 L 7.28 L (7.35-7.45) ABG pCO2 82 H* 71 H* (35-45) mmHg ABG pO2 176 H 195 H (83-108) mmHg ABG HCO3 32 H 33 H (21-25) mmol/L ABG Total CO2 35 H 35 H (19-24) mmol/L ABG O2 Saturation 99.3 H 99.8 H (94-97) % Hemoglobin 10.2 L (11.4-16.0) gm/dL Carbon Dioxide (22-30) mmol/L BUN (7-17) mg/dL Creatinine (0.52-1.04) mg/dL Glucose (74-99) mg/dL POC Glucose (mg/dL) 139 H (70-110) mg/dL 04/27/24 04/27/24 04/27/24 Range/Units 17:46 17:48 20:06 Hgb (11.4-16.0) gm/dL MCHC (31.0-37.0) g/dL Neutrophils # (1.3-7.7) k/uL Lymphocytes # (1.0-4.8) k/uL ABG pH 7.16 L* (7.35-7.45) ABG pCO2 94 H* (35-45) mmHg ABG pO2 113 H (83-108) mmHg ABG HCO3 33 H (21-25) mmol/L ABG Total CO2 36 H (19-24) mmol/L ABG O2 Saturation 97.6 H (94-97) % Hemoglobin 11.3 L (11.4-16.0) gm/dL Carbon Dioxide (22-30) mmol/L BUN (7-17) mg/dL Creatinine (0.52-1.04) mg/dL Glucose (74-99) mg/dL POC Glucose (mg/dL) 132 H 131 H (70-110) mg/dL 04/27/24 04/27/24 04/28/24 Range/Units 21:23 23:55 04:50 Hgb 10.6 L (11.4-16.0) gm/dL MCHC 29.9 L (31.0-37.0) g/dL Neutrophils # 8.9 H (1.3-7.7) k/uL Lymphocytes # 0.4 L (1.0-4.8) k/uL ABG pH 7.25 L (7.35-7.45) ABG pCO2 74 H* (35-45) mmHg ABG pO2 130 H (83-108) mmHg ABG HCO3 33 H (21-25) mmol/L ABG Total CO2 35 H (19-24) mmol/L ABG O2 Saturation 99.0 H (94-97) % Hemoglobin 10.4 L (11.4-16.0) gm/dL Carbon Dioxide (22-30) mmol/L BUN (7-17) mg/dL Creatinine (0.52-1.04) mg/dL Glucose (74-99) mg/dL POC Glucose (mg/dL) 126 H (70-110) mg/dL 04/28/24 04/28/24 Range/Units 04:50 05:31 Hgb (11.4-16.0) gm/dL MCHC (31.0-37.0) g/dL Neutrophils # (1.3-7.7) k/uL Lymphocytes # (1.0-4.8) k/uL ABG pH (7.35-7.45) ABG pCO2 (35-45) mmHg ABG pO2 (83-108) mmHg ABG HCO3 (21-25) mmol/L ABG Total CO2 (19-24) mmol/L ABG O2 Saturation (94-97) % Hemoglobin (11.4-16.0) gm/dL Carbon Dioxide 34 H (22-30) mmol/L BUN 31 H (7-17) mg/dL Creatinine 0.51 L (0.52-1.04) mg/dL Glucose 140 H (74-99) mg/dL POC Glucose (mg/dL) 164 H (70-110) mg/dL Assessment and Plan Plan: Acute hypoxic respiratory failure Acute exacerbation of chronic obstructive pulmonary disease Hypotension with hypovolemic shock on presentation Altered mentation on presentation Evidence of metastatic brain lesions Patient extubated 04/27/2024 She was started on IV fluid and IV antibiotics Pulmonary and neurology consultation requested Prognosis is guarded will follow closely
[2024-04-28 11:19] LABS: ABG Base Excess 4.1 mmol/L; ABG HCO3 32 mmol/L (21-25); ABG Oxygen Saturation 99.2 % (94-97); ABG PCO2 66 mmHg (35-45); ABG PH 7.29 (7.35-7.45); ABG PO2 135 mmHg (83-108); ABG TCO2 34 mmol/L (19-24); Allen Test Performed? Yes
[2024-04-28 12:29] LABS: Glucose,Whole Blood 138 mg/dL (70-110)
--- NOTE | 2024-04-28 15:00 | P.PN ---
Subjective Progress Note Date: 04/28/24 63-year-old female with a history of significant COPD. In fact, I believe I see her in the office for her COPD. She apparently was seen today April 23, in the emergency department, for shortness of breath, which according to the ER member began about a month ago. Is been getting progressively worse, and the patient apparently had some altered mental status according to her . The patient was initially seen in the emergency department, by Dr. Obrien, one of the ER physicians, and, the patient apparently became unresponsive, and required intubation and mechanical ventilation. The patient is currently going to be evaluated and treated, in the intensive care unit. Her past medical history is primarily positive for COPD, and she was a former smoker. She apparently also has a history of a polyp in her sinuses. Current laboratory data includes a white count 8.5, hemoglobin 11.2, hematocrit 36.1, and a platelet count of 261,000. D-dimer was 1.74. Blood gases showed a pO2 greater than 420, pCO2 of 60, the pH is 7.28. This was on 100%. I do not know the vent settings. Sodium 135, potassium 3.9, chloride 95, CO2 34, BUN 9, creatinine 0.42. Glucose was 138. N-terminal proBNP was normal. Troponin was negative. Viral screen was negative. Chest x-ray shows cardiomegaly, and may be some infiltrate in the right lower lobe. In addition the trachea appears to be torturous, and there may be some sort of a mass in the right paratracheal region. CT scan of the brain initially showed scattered areas of tavera-white matter vasogenic edema with possible masses in the right frontal lobe left posterior frontal lobe and right occipital parietal region. CTA was negative for pulmonary embolism. There was evidence of severe emphysema, primarily in the upper lobes. There appears also be a endobronchial valve, in the left upper lobe. Postintubation chest x-ray shows better aeration of both lung staples, and an endotracheal tube which is about 3 cm above the tracheal christina. On 04/24/2024, I am seeing this patient in the intensive care unit. The patient was brought into us and respiratory failure and the patient remains intubated on mechanical ventilator. Apparently, she presented to us with worsening shortness of breath and altered mentation. In the emergency, the patient was intubated and placed on the mechanical ventilator. Of significance is development of met astatic lesions to the brain. CAT scan of the brain was done on 04/23/2024 and it showed multiple enhancing tavera/white matter junction masses and this involves the right frontal lobe measuring 11 mm, left frontal lobe measuring 11 mm and another lesion posteriorly measuring 4 mm in size. No hemorrhage. No mass effect. The exact source of those lesions are not clear. Those are assumed to be metastatic in nature. Meanwhile, the patient underwent a CT of the chest that showed no evidence of any pulmonary embolism. There was extensive emphysematous changes bilaterally and the patient has endobronchial valves in the left upper lobe and there are some atelectatic change in the left upper lobe medially. There is also moderate to severe emphysematous changes bilaterally. A questionable lymph node was seen in the upper abdominal area that needs to be further characterize. Noted, the patient has undergone a previous PET/CT on 02/17/2021 which I assume was done for cancer workup and at that time the patient was found to have a stable 1.5 x 0.8 cm right upper lobe pulmonary nodule that showed no significant metabolic activity and focal post inflammatory scar was suspected. The most recent CAT scan of the chest done during this current admission shows no suspicious pulmonary nodules. No focal consolidation. No airspace disease. At this point in time, the patient remains intubated on mechanical ventilator. The patient is on assist-control rate of 28, tidal volume of 350, FiO2 50% with a PEEP of 5. Blood gas shows a pH of 7.3 with a pCO2 of 52 and pO2 of 190. The patient is currently on KVO IV fluids. She is on a norepinephrine running at 0.08 mcg/kg/min and vasopressin physiologic dose at 0.03 units. The white cell count of 6.6 with hemoglobin 9.5 platelet count of 296. Sodium is at 133, BUN 14 with a creatinine of 0.4. Cultures are still pending for now. The patient's viral screen was negative, procalcitonin level is 0.03. Troponins are negative. LFTs are normal. The patient is currently on DuoNeb updrafts, IV Rocephin and Zithromax. The patient also on Decadron 4 mg IV every 6 hours. Sedated with propofol. IV fluids were at KVO. Based on low urine output, I recommended to start the patient on normal citrate of 75 cc an hour. On 04/25/2024, the patient remains intubated on mechanical ventilator. This morning, the patient is on propofol running at 70 mcg/kg/min. Will also add fentanyl to control her restlessness and agitation and sexually with a mechanical ventilator. She is assist-control mode with rate of 28, tidal volume of 350, FiO2 50% with a PEEP of 5. Blood gas showed a pH of 7.29 with a pCO2 58 and pO2 of 201. The patient had a follow-up chest x-ray that shows no acute abnormalities. ET tube needs to be advanced and appropriate recommendations were given. There are some reticular opacities throughout the right lung which was present earlier and are essentially unchanged. The patient remains on bronchodilators and the patient is currently on DuoNeb updrafts. The patient on IV Solu-Medrol 60 mg every 6 hours. The patient is on normal saline at rate of 75 cc an hour. Norepinephrine running at 0.01 mcg/kg/min and vasopressin has been discontinued. The patient was started on vital HP for enteral feeding for nutritional support and the patient is running at a rate of 35 cc an hour. Fluid balance is +2.6 L over the past 24 hours. Remains on IV Rocephin as an empiric antibiotic coverage. EEG was performed yesterday and showed no seizure activity and there is mild to moderate degree of slowing related to use of propofol. Patient was also seen by neurology. No other significant events overnight. Peak airway pressure remains elevated at 38. The patient has a positive auto PEEP. On 04/26/2024, patient is being seen for a follow-up. Remains intubated on mechanical ventilator. As mentioned earlier, the patient has advanced COPD. The patient also has metastatic DRIER AND PULVER[employer] TENDER lesions. Oncology is on the case. On today's evaluation, the patient remains sedated. She is on propofol running at 65 mcg/kg/min and fentanyl at 1 mcg/kg/h. She is on assist-control mode of mechanical ventilation at rate of 22, tidal volume of 350, FiO2 40% with a PEEP of 5. Blood gas showed a pH of 7.24 with a pCO2 17 pO2 of 107. Peak airway pressure is around 39. She is receiving fluid boluses and overnight, she received a total of 2 L and the patient is a positive fluid balance of 2.4 L over the past 24 hours. She remains on low-dose norepinephrine running at 0.02 mcg/kg/min. The patient remains on empiric antibiotic coverage with IV Rocephin. She remains on bronchodilators patient remains on IV Solu-Medrol 60 mg every 6 hours. White cell count of 12.3 with a hemoglobin 10.6 and a platelet count of 266. Sodium is at 139, potassium is at 4.4, BUN is 18 with a creatinine of 0.4. Sputum culture was positive for Kaitlin albicans. Blood cultures been negative.Echocardiogram was also obtained today and the patient was found to have normal ejection fraction of 55 to 60%, mild RV dilatation, moderate pulm hypertension, no significant valvular heart disease. On 04/27/2024, the patient remains intubated on mechanical ventilator. This morning, the patient had a propofol running at 60 mcg/kg/min and fentanyl running at 1 mcg/kg/h. The patient is arousable once off sedation. On today's evaluation, the patient's vent is set at a rate of 22, tidal volume of 350, FiO2 of 40% with a PEEP of 5. The blood gas showed a pH of 7.29 with a pCO2 of 64 and pO2 of 108. The peak airway pressure was at 37. Chest x-ray showed COPD with similar reticular opacities throughout the right lung and some atelectatic changes in the left upper lobe. ET tube in the rest of the lungs are all in place. No significant orotracheal secretions. The patient has a fluid balance of +3.5 L over the past 24 hours. She is receiving vital high-protein at rate of 35 cc an hour. She remains on normal saline at rate of 75 cc an hour. The patient remains on IV Rocephin. Remains on bronchodilators. Remains on IV Solu-Medrol. Remains on NovoLog sliding scale coverage. Keppra was also started for seizure prophylaxis. The rest of the blood work shows a white cell count of 8.6 with a hemoglobin 9.7 and a platelet count of 248. Sodium is at 135, potassium is at 4.7, BUN is 22 with a creatinine of 0.47. Serum bicarb is at 32. Calcium level is at 8.6. LFT shows a AST of 82, ALT of 140, alkaline phosphatase of 51. Albumin is at 2.8. On 04/28/2024, the patient is being seen for a follow-up. As mentioned earlier, the patient has end-stage COPD. I ended up extubating this patient to a BiPAP yesterday. Postextubation, the patient encountered some increased agitation and respiratory distress and the based on that the patient was placed on a BiPAP. This morning, the patient is on a BiPAP at a pressure of 16/5 with an FiO2 of 50%. She remains on Precedex at 1.4 mcg/kg/min and the patient has a sitter at the bedside. She is still having bursts of agitation and yelling. Otherwise, she is calm and comfortable. She remains on normal saline at rate of 65 cc an hour. Generated tidal volume on the BiPAP is 400 cc and sometimes more and the respirate is around 21. Repeated blood gases were done and the most recent blood gas showed a pH of 7.29 with a pCO2 of 66 and pO2 of 135 and this was an FiO2 of 50%. The follow-up chest x-ray from today shows COPD, some similar reticular opacities throughout the right lung, likely chronic fibrotic changes. Some atelectatic changes also seen in the left lung. The patient is arousable. She is overall weak. Her white cell count is at 9.9 with a hemoglobin 10.6 and a platelet count of 237. Sodium levels at 138, potassium is at 4.5, bicarbonate 34 BUN 31 creatinine 0.5. She remains on bronchodilators and steroids. Will add Perforomist and Pulmicort nebulized treatments twice a day. Keep the patient on IV Solu-Medrol. Keep the patient on IV Rocephin. Keep the patient on Keppra. Sedation is with Precedex. Objective - Vital Signs Vital signs: Vital Signs Temp 98.3 F 04/28/24 12:00 Pulse 72 04/28/24 14:00 Resp 12 04/28/24 14:00 BP 90/57 04/28/24 14:00 Pulse Ox 95 04/28/24 14:00 FiO2 40 04/28/24 12:00 Intake & Output 04/27/24 04/28/24 04/28/24 18:59 06:59 18:59 Intake Total 2740.173 5316.869 751.684 Output Total 1540 510 400 Balance -71.846 678.869 351.684 Weight 60.7 kg 60.7 kg Intake: IV 1008 951 619 .9 @ 10ml 110 120 45 Sodium Chloride 0.9% 1, 865 795 550 000 ml @ 75 mls/hr IV . [id number] [facility] Rx#:[id number] pressure bag 33 36 24 Intake, IV Titration 255.154 237.869 132.684 Amount Dexmedetomidine/0.9% NaCl 82.782 237.869 132.684 (Pmx) 400 mcg In Empty Bag 1 bag @ 0.2 MCG/KG/HR 3.085 mls/hr IV .Q24H [facility] Rx#:[id number] Norepinephrine 4 mg In 27.594 Sodium Chloride 0.9% 250 ml @ 0.03 MCG/KG/MIN 5. 185 mls/hr IV .Q24H [facility] Rx#:[id number] fentaNYL (PF). 1,000 mcg 48.139 In Sodium Chloride 0.9% 80 ml @ 0.5 MCG/KG/HR 2. 73 mls/hr IV .Q24H [facility] Rx #:[id number] propofoL 1,000 mg In 96.639 Empty Bag 1 bag @ 15 MCG/ KG/MIN 4.082 mls/hr IV . Q24H [facility] Rx#:[id number] Tube Feeding 175 Other 30 Output: Urine 1540 510 400 Other: Voiding Method Indwelling Catheter Indwelling Catheter ABP, PAP, CO, CI - Last Documented Arterial Blood Pressure 88/47 - Exam Calm and comfortable, and the patient is currently on Precedex and she is on a BiPAP pressure of 16/5 with an FiO2 of 50%. She seems to be comfortable although she is having episodes of agitation and yelling episodes. Neurologic exam is nonfocal and the patient is able to move all extremities without any limitation. HEENT examination is grossly unremarkable. Mucous membranes are moist. No oral lesions. Neck supple. Full range of motion. No adenopathy thyromegaly or neck vein distention. Cardiovascular examination reveals regular rhythm rate. S1-S2 normal. No S3 or S4. No discernible murmur noted. Lungs reveal scattered bilateral rhonchi and wheezes. Breath sounds are diminished. No crackles. Breath sounds are equal. The breath sounds are markedly diminished and the patient is prolongation of his exhalation phase of breathing and expiratory wheeze heard bilaterally. Abdomen soft bowel sounds are heard. No masses or tenderness. Extremities are intact. No cyanosis clubbing or edema. Skin is without rash or lesion. Neurologic is sedated on Precedex and she is calm and comfortable. Moving all 4 extremities. Arousable. - Labs CBC & Chem 7: 04/28/24 04:50 04/28/24 04:50 Labs: Abnormal Lab Results - Last 24 Hours (Table) 04/27/24 04/27/24 04/27/24 Range/Units 17:46 17:48 20:06 Hgb (11.4-16.0) gm/dL MCHC (31.0-37.0) g/dL Neutrophils # (1.3-7.7) k/uL Lymphocytes # (1.0-4.8) k/uL ABG pH 7.16 L* (7.35-7.45) ABG pCO2 94 H* (35-45) mmHg ABG pO2 113 H (83-108) mmHg ABG HCO3 33 H (21-25) mmol/L ABG Total CO2 36 H (19-24) mmol/L ABG O2 Saturation 97.6 H (94-97) % Hemoglobin 11.3 L (11.4-16.0) gm/dL Carbon Dioxide (22-30) mmol/L BUN (7-17) mg/dL Creatinine (0.52-1.04) mg/dL Glucose (74-99) mg/dL POC Glucose (mg/dL) 132 H 131 H (70-110) mg/dL 04/27/24 04/27/24 04/28/24 Range/Units 21:23 23:55 04:50 Hgb 10.6 L (11.4-16.0) gm/dL MCHC 29.9 L (31.0-37.0) g/dL Neutrophils # 8.9 H (1.3-7.7) k/uL Lymphocytes # 0.4 L (1.0-4.8) k/uL ABG pH 7.25 L (7.35-7.45) ABG pCO2 74 H* (35-45) mmHg ABG pO2 130 H (83-108) mmHg ABG HCO3 33 H (21-25) mmol/L ABG Total CO2 35 H (19-24) mmol/L ABG O2 Saturation 99.0 H (94-97) % Hemoglobin 10.4 L (11.4-16.0) gm/dL Carbon Dioxide (22-30) mmol/L BUN (7-17) mg/dL Creatinine (0.52-1.04) mg/dL Glucose (74-99) mg/dL POC Glucose (mg/dL) 126 H (70-110) mg/dL 04/28/24 04/28/24 04/28/24 Range/Units 04:50 05:31 11:16 Hgb (11.4-16.0) gm/dL MCHC (31.0-37.0) g/dL Neutrophils # (1.3-7.7) k/uL Lymphocytes # (1.0-4.8) k/uL ABG pH 7.29 L (7.35-7.45) ABG pCO2 66 H (35-45) mmHg ABG pO2 135 H (83-108) mmHg ABG HCO3 32 H (21-25) mmol/L ABG Total CO2 34 H (19-24) mmol/L ABG O2 Saturation 99.2 H (94-97) % Hemoglobin 10.6 L (11.4-16.0) gm/dL Carbon Dioxide 34 H (22-30) mmol/L BUN 31 H (7-17) mg/dL Creatinine 0.51 L (0.52-1.04) mg/dL Glucose 140 H (74-99) mg/dL POC Glucose (mg/dL) 164 H (70-110) mg/dL 04/28/24 Range/Units 12:27 Hgb (11.4-16.0) gm/dL MCHC (31.0-37.0) g/dL Neutrophils # (1.3-7.7) k/uL Lymphocytes # (1.0-4.8) k/uL ABG pH (7.35-7.45) ABG pCO2 (35-45) mmHg ABG pO2 (83-108) mmHg ABG HCO3 (21-25) mmol/L ABG Total CO2 (19-24) mmol/L ABG O2 Saturation (94-97) % Hemoglobin (11.4-16.0) gm/dL Carbon Dioxide (22-30) mmol/L BUN (7-17) mg/dL Creatinine (0.52-1.04) mg/dL Glucose (74-99) mg/dL POC Glucose (mg/dL) 138 H (70-110) mg/dL Assessment and Plan Plan: Acute hypoxemic respiratory failure, secondary to COPD exacerbation. CT of the chest was noted and there is no evidence of any airspace disease or consolidation. No suspicious lung nodules or lesions. No significant mediastinal lymphadenopathy. The patient has moderate to severe emphysematous changes and she has evidence of endobronchial valve insertion in the left upper lobe that was done in outside facility. She has some atelectatic changes in the left upper lobe medially. No evidence of any airspace disease or pneumonia. Viral screen has been negative. The patient was extubated to BiPAP on 04/28/2024 and the patient continues to be on BiPAP. Her current settings are 16/5 with an FiO2 of 50%. Blood gases show improvement in acid-base status although there is some ongoing respiratory acidosis. Oxygenation is stable. Chest x-ray is stable. To maintain synchrony and comfort, the patient is on Precedex infusion. Advanced COPD with diffuse emphysematous changes and possible previous endobronc hial valve insertion, details are not known. Hypotension, post intubation. Echocardiogram shows a preserved LV function with an ejection fraction of 55%. The hypotension is believed to be related to the sedation as the patient is currently on a combination of fentanyl drip and propofol drip. She remains on low-dose norepinephrine. Vasopressin has been discontinued. Previous history of a postinflammatory scar in the right upper lobe and a previous PET/CT that was done back in 2020 showed no significant metabolic activity Altered mentation with evidence of multiple lesions in the brain without any vasogenic edema. No mass effect. Those lesions are measuring 11 to 12 mm in size in the right frontal and left frontal and another 1 posteriorly. Obviously, metastatic disease is of a concern. The patient is currently on Precedex. She is arousable and she is moving all 4 extremities. No seizure activity and the patient remains on Keppra. Prior history of heavy tobacco use. Plan: Keep the patient on BiPAP with close monitoring. This is a very borderline situation and the patient may obviously decompensate and require intubation again. Nevertheless, I am going to try not to intubate the patient is much as possible and support her with the BiPAP hoping that her overall respiratory status and respiratory acidosis will improve over the next 24 to 48 hours. Will continue bronchodilators Will add a combination Perforomist and Pulmicort nebulized treatments twice a day Continue Precedex infusion IV Solu-Medrol 60 mg every 6 hours. IV Rocephin as empiric antibiotic coverage. Blood cultures Sputum cultures, positive for Kaitlin albicans EEG showed no evidence of any seizure activity, the patient is currently on Keppra IV fluids with normal saline at rate of 75 cc an hour No pressors for now Obtain a CAT scan of the abdomen and pelvis was negative for any malignancy. Condition is critical Will continue to follow make further recommendations based on her progress. This evaluation was done in 40 minutes. I had a nice discussion with her and daughter at the bedside. Time with Patient: Greater than 30
[2024-04-28 16:45] LABS: ABG Base Excess 3.5 mmol/L; ABG HCO3 33 mmol/L (21-25); ABG Oxygen Saturation 98.7 % (94-97); ABG PH 7.24 (7.35-7.45); ABG PO2 128 mmHg (83-108); ABG TCO2 35 mmol/L (19-24); Allen Test Performed? Yes
[2024-04-28 16:48] LABS: ABG PCO2 78 mmHg (35-45)
--- NOTE | 2024-04-28 18:15 | P.PCN ---
Date of Procedure: 04/28/24 Preoperative Diagnosis: Acute hypoxic/hypercapnic respiratory failure Postoperative Diagnosis: Same Procedure(s) Performed: Intubation Arterial line insertion Anesthesia: MAC Surgeon: Mireille Oakley Estimated Blood Loss (ml): 0 Pathology: other Condition: critical Disposition: ICU Operative Findings: Intubation Indication: Respiratory compromise. A time-out was completed verifying correct patient, procedure, site, positioning, and implant(s) or special equipment if applicable. The patient was positioned appropriately and a #8 endotracheal tube was placed under direct laryngoscopy. The tube was anchored at 22 cm at the teeth. Correct placement was confirmed by presence of bilateral breath sounds without air sounds in the abdomen on auscultation. An end-tidal CO2 monitor was also used to confirm tracheal placement of the ET tube. A chest x-ray was ordered to assess for pneumothorax and verify endotracheal tube placement. The patient tolerated the procedure well and there were no complications. Arterial line insertion Indication: Hemodynamic monitoring. A time-out was completed verifying correct patient, procedure, site, positioning, and implant(s) or special equipment if applicable. Allens test was performed to ensure adequate perfusion. The patients left wrist was prepped and draped in sterile fashion. 1% Lidocaine was used to anesthetize the area. An 18G Arrow arterial line was introduced into the radial artery. The catheter was threaded over the guide wire and the needle was removed with appropriate pulsatile blood return. Blood loss was minimal. The catheter was then sutured in place to the skin and a sterile dressing applied. Perfusion to the extremity distal to the point of catheter insertion was checked and found to be adequate. The patient tolerated the procedure well and there were no complications.
[2024-04-28 18:17] LABS: Glucose,Whole Blood 136 mg/dL (70-110)
[2024-04-28 18:22] LABS: ABG Base Excess 3.1 mmol/L; ABG HCO3 31 mmol/L (21-25); ABG Oxygen Saturation 99.4 % (94-97); ABG PCO2 66 mmHg (35-45); ABG PH 7.28 (7.35-7.45); ABG PO2 153 mmHg (83-108); ABG TCO2 33 mmol/L (19-24)
[2024-04-28 18:28] LABS: Allen Test Performed? no
--- NOTE | 2024-04-28 18:53 | XR ---
EXAMINATION TYPE: XR chest 1V portable DATE OF EXAM: 04/28/2024 6:38 PM COMPARISON: 04/28/2024 CLINICAL INDICATION: Female, 63 years old with history of Tube placement, TECHNIQUE: XR chest 1V portable view(s) obtained. FINDINGS: The heart size is normal. The pulmonary vasculature is normal. Atelectasis at the left base. Minimal left pleural effusion may be present. Small right pleural effus ion is likely present Endotracheal tube is in place with tip 4.5 cm above the christina. Nasogastric tube transverses the tho rax. IMPRESSION: 1. Mild atelectasis left base. 2. Small bilateral pleural effusions. 3. Lines and catheters discussed above [facility], , 04/28/2024 6:51 PM
[2024-04-28] MEDS: NOREPINEPHRINE 4 MG in SODIUM CHLORIDE 0.9% 250 ML IV SCH (19:41)
[2024-04-28] MEDS ORDERED: SYMBICORT 160-4.5 MCG INHALER INHALATION SCH (20:00)
[2024-04-28] MEDS: FORMOTEROL FUMARATE 20 MCG/2 ML NEBU INHALATION SCH (20:23)
[2024-04-28] MEDS: BUDESONIDE 0.5 MG/2 ML NEBU INHALATION SCH (20:23)
[2024-04-28 23:21] LABS: Glucose,Whole Blood 117 mg/dL (70-110)
--- NOTE | 2024-04-29 03:41 | CT ---
EXAM: CT Head Without Intravenous Contrast CLINICAL HISTORY: ITS.REASON CT Reason: F/u lesions TECHNIQUE: Axial computed tomography images of the head/brain without intravenous contrast. CTDI is 57.4 mGy and DLP is 1150.5 mGy-cm. This CT exam was performed using one or more of the following dose reduction techniques: automated exposure control, adjustment of the mA and/or kV according to patient size, and/or use of iterative reconstruction technique. COMPARISON: 04/23/2024 IMPRESSION: Similar distribution of previously seen lesions. The lesions appear less prominent compared to prior. Recommend continued follow-up
[2024-04-29 05:26] LABS: Glucose,Whole Blood 124 mg/dL (70-110)
[2024-04-29 05:55] LABS: ABG Base Excess 4.3 mmol/L; ABG HCO3 31 mmol/L (21-25); ABG Oxygen Saturation 97.4 % (94-97); ABG PCO2 59 mmHg (35-45); ABG PH 7.34 (7.35-7.45); ABG PO2 92 mmHg (83-108); ABG TCO2 33 mmol/L (19-24); Allen Test Performed? Yes
[2024-04-29 06:31] LABS: Basophils % (A) 0 %; Eosinophils % (A) 0 %; HCT 37.1 % (34.0-46.0); HGB 11.1 gm/dL (11.4-16.0); Hypochromasia Marked; Lymphocytes # (A) 0.3 k/uL (1.0-4.8); Lymphocytes % (A) 3 %; MCH 26.2 pg (25.0-35.0); MCV 87.3 fL (80.0-100.0); Mean Platelet Volume 7.7; Monocytes # (A) 0.7 k/uL (0-1.0); Monocytes % (A) 6 %; Neutrophils # (A) 11.1 k/uL (1.3-7.7); Neutrophils % (A) 91 %; Platelet Count 265 k/uL (150-450); RBC 4.25 m/uL (3.80-5.40); WBC 12.2 k/uL (3.8-10.6)
[2024-04-29 07:06] LABS: African American GFR (CKD) >90 (>60 ml/min/1.73 sqM); Anion Gap 5 mmol/L; Blood Urea Nitrogen 26 mg/dL (7-17); Calcium 8.6 mg/dL (8.4-10.2); Carbon Dioxide 31 mmol/L (22-30); Chloride 104 mmol/L (98-107); Glucose 114 mg/dL (74-99); Magnesium 2.2 mg/dL (1.6-2.3); Non-African American GFR(CKD) >90 (>60 ml/min/1.73 sqM); Potassium 4.2 mmol/L (3.5-5.1); Sodium 140 mmol/L (137-145)
--- NOTE | 2024-04-29 08:01 | XR ---
EXAMINATION TYPE: XR chest 1V portable DATE OF EXAM: 04/29/2024 5:49 AM COMPARISON: 04/28/2024 CLINICAL INDICATION: Female, 63 years old with history of Tube placement, TECHNIQUE: XR chest 1V portable view(s) obtained. FINDINGS: The heart size is normal. The pulmonary vasculature is normal. There is some tenting along the left diaphragm compatible some atelectasis. Minimal bilateral pleural effusions may be present Endotracheal tube tip is 4.7 cm above the christina. Nasogastric tube transverses the thorax with tip in the proximal left upper quadrant of the abdomen IMPRESSION: 1. No acute pulmonary process. [facility], , 04/29/2024 7:59 AM
[2024-04-29 12:03] LABS: Glucose,Whole Blood 135 mg/dL (70-110)
--- NOTE | 2024-04-29 12:37 | P.PN ---
Subjective Progress Note Date: 04/28/24 Patient was seen for a follow-up. Patient is on BiPAP. She is holding well. Did not require reintubation. Apparently patient fell out of bed last night. She landed on her buttocks. Patient is on Precedex. She is not oriented. Patient has not had any more episodes of unresponsiveness. Family mentions that patient has smoked one and half pack per day for 20-30 years. Quit in 2019. She is on home oxygen at 3.5 L per minute. Objective - Vital Signs Vital signs: Vital Signs Temp 98.3 F 04/28/24 12:00 Pulse 84 04/28/24 12:00 Resp 16 04/28/24 12:00 BP 97/60 04/28/24 12:00 Pulse Ox 90 L 04/28/24 12:00 FiO2 40 04/28/24 12:00 Intake & Output 04/27/24 04/28/24 04/28/24 18:59 06:59 18:59 Intake Total 9523.515 9340.869 510.459 Output Total 1540 510 300 Balance -71.846 678.869 210.459 Weight 60.7 kg Intake: IV 1008 951 463 .9 @ 10ml 110 120 45 Sodium Chloride 0.9% 1, 865 795 400 000 ml @ 75 mls/hr IV . [id number] [facility] Rx#:[id number] pressure bag 33 36 18 Intake, IV Titration 255.154 237.869 47.459 Amount Dexmedetomidine/0.9% NaCl 82.782 237.869 47.459 (Pmx) 400 mcg In Empty Bag 1 bag @ 0.2 MCG/KG/HR 3.085 mls/hr IV .Q24H [facility] Rx#:[id number] Norepinephrine 4 mg In 27.594 Sodium Chloride 0.9% 250 ml @ 0.03 MCG/KG/MIN 5. 185 mls/hr IV .Q24H [facility] Rx#:[id number] fentaNYL (PF). 1,000 mcg 48.139 In Sodium Chloride 0.9% 80 ml @ 0.5 MCG/KG/HR 2. 73 mls/hr IV .Q24H [facility] Rx #:[id number] propofoL 1,000 mg In 96.639 Empty Bag 1 bag @ 15 MCG/ KG/MIN 4.082 mls/hr IV . Q24H [facility] Rx#:[id number] Tube Feeding 175 Other 30 Output: Urine 1540 510 300 Other: Voiding Method Indwelling Catheter Indwelling Catheter ABP, PAP, CO, CI - Last Documented Arterial Blood Pressure 88/47 - Exam Patient is alert and awake. She has BiPAP on. Patient does move extremities. Patient did not cooperate with examination because of her breathing difficulty. - Labs CBC & Chem 7: 04/29/24 05:30 04/29/24 05:30 Labs: Abnormal Lab Results - Last 24 Hours (Table) 04/27/24 04/27/24 04/27/24 Range/Units 14:16 17:46 17:48 Hgb (11.4-16.0) gm/dL MCHC (31.0-37.0) g/dL Neutrophils # (1.3-7.7) k/uL Lymphocytes # (1.0-4.8) k/uL ABG pH 7.28 L (7.35-7.45) ABG pCO2 71 H* (35-45) mmHg ABG pO2 195 H (83-108) mmHg ABG HCO3 33 H (21-25) mmol/L ABG Total CO2 35 H (19-24) mmol/L ABG O2 Saturation 99.8 H (94-97) % Hemoglobin 10.2 L (11.4-16.0) gm/dL Carbon Dioxide (22-30) mmol/L BUN (7-17) mg/dL Creatinine (0.52-1.04) mg/dL Glucose (74-99) mg/dL POC Glucose (mg/dL) 132 H 131 H (70-110) mg/dL 04/27/24 04/27/24 04/27/24 Range/Units 20:06 21:23 23:55 Hgb (11.4-16.0) gm/dL MCHC (31.0-37.0) g/dL Neutrophils # (1.3-7.7) k/uL Lymphocytes # (1.0-4.8) k/uL ABG pH 7.16 L* 7.25 L (7.35-7.45) ABG pCO2 94 H* 74 H* (35-45) mmHg ABG pO2 113 H 130 H (83-108) mmHg ABG HCO3 33 H 33 H (21-25) mmol/L ABG Total CO2 36 H 35 H (19-24) mmol/L ABG O2 Saturation 97.6 H 99.0 H (94-97) % Hemoglobin 11.3 L 10.4 L (11.4-16.0) gm/dL Carbon Dioxide (22-30) mmol/L BUN (7-17) mg/dL Creatinine (0.52-1.04) mg/dL Glucose (74-99) mg/dL POC Glucose (mg/dL) 126 H (70-110) mg/dL 04/28/24 04/28/24 04/28/24 Range/Units 04:50 04:50 05:31 Hgb 10.6 L (11.4-16.0) gm/dL MCHC 29.9 L (31.0-37.0) g/dL Neutrophils # 8.9 H (1.3-7.7) k/uL Lymphocytes # 0.4 L (1.0-4.8) k/uL ABG pH (7.35-7.45) ABG pCO2 (35-45) mmHg ABG pO2 (83-108) mmHg ABG HCO3 (21-25) mmol/L ABG Total CO2 (19-24) mmol/L ABG O2 Saturation (94-97) % Hemoglobin (11.4-16.0) gm/dL Carbon Dioxide 34 H (22-30) mmol/L BUN 31 H (7-17) mg/dL Creatinine 0.51 L (0.52-1.04) mg/dL Glucose 140 H (74-99) mg/dL POC Glucose (mg/dL) 164 H (70-110) mg/dL 04/28/24 04/28/24 Range/Units 11:16 12:27 Hgb (11.4-16.0) gm/dL MCHC (31.0-37.0) g/dL Neutrophils # (1.3-7.7) k/uL Lymphocytes # (1.0-4.8) k/uL ABG pH 7.29 L (7.35-7.45) ABG pCO2 66 H (35-45) mmHg ABG pO2 135 H (83-108) mmHg ABG HCO3 32 H (21-25) mmol/L ABG Total CO2 34 H (19-24) mmol/L ABG O2 Saturation 99.2 H (94-97) % Hemoglobin 10.6 L (11.4-16.0) gm/dL Carbon Dioxide (22-30) mmol/L BUN (7-17) mg/dL Creatinine (0.52-1.04) mg/dL Glucose (74-99) mg/dL POC Glucose (mg/dL) 138 H (70-110) mg/dL Assessment and Plan Assessment: * Abnormal CT head with evidence of at least 3, perhaps 4 contrast-enhancing rounded lesions at the tavera-white junction. Suspect metastatic disease. So far no evidence of primary. * Status post extubation 04/27/2024 * Metabolic encephalopathy * COPD exacerbation * Elevated pCO2 60 on arrival. * Hyponatremia * Hypotension, improved. Patient on norepinephrine and vasopressin * History of tobacco use Plan: * Patient not able to tolerate MRI because of her breathing difficulty. Will recheck CT head today to follow-up on the lesions. * EEG was abnormal due to background slowing of mild to moderate degree. This is suggestive of generalized cerebral dysfunction as can be seen with toxic metabolic encephalopathy or related to diffuse structural brain abnormality, or medication effect. Clinical correlation is recommended. No definitive epileptiform activity was seen. * CT of abdomen pelvis revealed mild sludge within the gallbladder. Mild ascites and moderate to marked anasarca of the abdominal and pelvic soft tissues. No mass. * Patient had some unclear spell of unresponsiveness. We will empirically start Keppra 500 mg twice a day. * Treatment of underlying cardiopulmonary condition as per IM and critical care. * Recommended MRI of the brain with and without contrast. * Discussed with oncology team. Patient currently on methylprednisolone 60 mg IV every 6 hours. * Patient on ceftriaxone 2 g every 24 hours.
[2024-04-29 13:09] VITALS: BMI 22.4
--- NOTE | 2024-04-29 13:36 | P.PN ---
Subjective Progress Note Date: 04/29/24 63-year-old female with a history of significant COPD. In fact, I believe I see her in the office for her COPD. She apparently was seen today April 23, in the emergency department, for shortness of breath, which according to the ER member began about a month ago. Is been getting progressively worse, and the patient apparently had some altered mental status according to her . The patient was initially seen in the emergency department, by Dr. Obrien, one of the ER physicians, and, the patient apparently became unresponsive, and required intubation and mechanical ventilation. The patient is currently going to be evaluated and treated, in the intensive care unit. Her past medical history is primarily positive for COPD, and she was a former smoker. She apparently also has a history of a polyp in her sinuses. Current laboratory data includes a white count 8.5, hemoglobin 11.2, hematocrit 36.1, and a platelet count of 261,000. D-dimer was 1.74. Blood gases showed a pO2 greater than 420, pCO2 of 60, the pH is 7.28. This was on 100%. I do not know the vent settings. Sodium 135, potassium 3.9, chloride 95, CO2 34, BUN 9, creatinine 0.42. Glucose was 138. N-terminal proBNP was normal. Troponin was negative. Viral screen was negative. Chest x-ray shows cardiomegaly, and may be some infiltrate in the right lower lobe. In addition the trachea appears to be torturous, and there may be some sort of a mass in the right paratracheal region. CT scan of the brain initially showed scattered areas of tavera-white matter vasogenic edema with possible masses in the right frontal lobe left posterior frontal lobe and right occipital parietal region. CTA was negative for pulmonary embolism. There was evidence of severe emphysema, primarily in the upper lobes. There appears also be a endobronchial valve, in the left upper lobe. Postintubation chest x-ray shows better aeration of both lung staples, and an endotracheal tube which is about 3 cm above the tracheal christina. On 04/24/2024, I am seeing this patient in the intensive care unit. The patient was brought into us and respiratory failure and the patient remains intubated on mechanical ventilator. Apparently, she presented to us with worsening shortness of breath and altered mentation. In the emergency, the patient was intubated and placed on the mechanical ventilator. Of significance is development of met astatic lesions to the brain. CAT scan of the brain was done on 04/23/2024 and it showed multiple enhancing tavera/white matter junction masses and this involves the right frontal lobe measuring 11 mm, left frontal lobe measuring 11 mm and another lesion posteriorly measuring 4 mm in size. No hemorrhage. No mass effect. The exact source of those lesions are not clear. Those are assumed to be metastatic in nature. Meanwhile, the patient underwent a CT of the chest that showed no evidence of any pulmonary embolism. There was extensive emphysematous changes bilaterally and the patient has endobronchial valves in the left upper lobe and there are some atelectatic change in the left upper lobe medially. There is also moderate to severe emphysematous changes bilaterally. A questionable lymph node was seen in the upper abdominal area that needs to be further characterize. Noted, the patient has undergone a previous PET/CT on 02/17/2021 which I assume was done for cancer workup and at that time the patient was found to have a stable 1.5 x 0.8 cm right upper lobe pulmonary nodule that showed no significant metabolic activity and focal post inflammatory scar was suspected. The most recent CAT scan of the chest done during this current admission shows no suspicious pulmonary nodules. No focal consolidation. No airspace disease. At this point in time, the patient remains intubated on mechanical ventilator. The patient is on assist-control rate of 28, tidal volume of 350, FiO2 50% with a PEEP of 5. Blood gas shows a pH of 7.3 with a pCO2 of 52 and pO2 of 190. The patient is currently on KVO IV fluids. She is on a norepinephrine running at 0.08 mcg/kg/min and vasopressin physiologic dose at 0.03 units. The white cell count of 6.6 with hemoglobin 9.5 platelet count of 296. Sodium is at 133, BUN 14 with a creatinine of 0.4. Cultures are still pending for now. The patient's viral screen was negative, procalcitonin level is 0.03. Troponins are negative. LFTs are normal. The patient is currently on DuoNeb updrafts, IV Rocephin and Zithromax. The patient also on Decadron 4 mg IV every 6 hours. Sedated with propofol. IV fluids were at KVO. Based on low urine output, I recommended to start the patient on normal citrate of 75 cc an hour. On 04/25/2024, the patient remains intubated on mechanical ventilator. This morning, the patient is on propofol running at 70 mcg/kg/min. Will also add fentanyl to control her restlessness and agitation and sexually with a mechanical ventilator. She is assist-control mode with rate of 28, tidal volume of 350, FiO2 50% with a PEEP of 5. Blood gas showed a pH of 7.29 with a pCO2 58 and pO2 of 201. The patient had a follow-up chest x-ray that shows no acute abnormalities. ET tube needs to be advanced and appropriate recommendations were given. There are some reticular opacities throughout the right lung which was present earlier and are essentially unchanged. The patient remains on bronchodilators and the patient is currently on DuoNeb updrafts. The patient on IV Solu-Medrol 60 mg every 6 hours. The patient is on normal saline at rate of 75 cc an hour. Norepinephrine running at 0.01 mcg/kg/min and vasopressin has been discontinued. The patient was started on vital HP for enteral feeding for nutritional support and the patient is running at a rate of 35 cc an hour. Fluid balance is +2.6 L over the past 24 hours. Remains on IV Rocephin as an empiric antibiotic coverage. EEG was performed yesterday and showed no seizure activity and there is mild to moderate degree of slowing related to use of propofol. Patient was also seen by neurology. No other significant events overnight. Peak airway pressure remains elevated at 38. The patient has a positive auto PEEP. On 04/26/2024, patient is being seen for a follow-up. Remains intubated on mechanical ventilator. As mentioned earlier, the patient has advanced COPD. The patient also has metastatic INSIDE STEWARD/STEWARDESS lesions. Oncology is on the case. On today's evaluation, the patient remains sedated. She is on propofol running at 65 mcg/kg/min and fentanyl at 1 mcg/kg/h. She is on assist-control mode of mechanical ventilation at rate of 22, tidal volume of 350, FiO2 40% with a PEEP of 5. Blood gas showed a pH of 7.24 with a pCO2 17 pO2 of 107. Peak airway pressure is around 39. She is receiving fluid boluses and overnight, she received a total of 2 L and the patient is a positive fluid balance of 2.4 L over the past 24 hours. She remains on low-dose norepinephrine running at 0.02 mcg/kg/min. The patient remains on empiric antibiotic coverage with IV Rocephin. She remains on bronchodilators patient remains on IV Solu-Medrol 60 mg every 6 hours. White cell count of 12.3 with a hemoglobin 10.6 and a platelet count of 266. Sodium is at 139, potassium is at 4.4, BUN is 18 with a creatinine of 0.4. Sputum culture was positive for Kaitlin albicans. Blood cultures been negative.Echocardiogram was also obtained today and the patient was found to have normal ejection fraction of 55 to 60%, mild RV dilatation, moderate pulm hypertension, no significant valvular heart disease. On 04/27/2024, the patient remains intubated on mechanical ventilator. This morning, the patient had a propofol running at 60 mcg/kg/min and fentanyl running at 1 mcg/kg/h. The patient is arousable once off sedation. On today's evaluation, the patient's vent is set at a rate of 22, tidal volume of 350, FiO2 of 40% with a PEEP of 5. The blood gas showed a pH of 7.29 with a pCO2 of 64 and pO2 of 108. The peak airway pressure was at 37. Chest x-ray showed COPD with similar reticular opacities throughout the right lung and some atelectatic changes in the left upper lobe. ET tube in the rest of the lungs are all in place. No significant orotracheal secretions. The patient has a fluid balance of +3.5 L over the past 24 hours. She is receiving vital high-protein at rate of 35 cc an hour. She remains on normal saline at rate of 75 cc an hour. The patient remains on IV Rocephin. Remains on bronchodilators. Remains on IV Solu-Medrol. Remains on NovoLog sliding scale coverage. Keppra was also started for seizure prophylaxis. The rest of the blood work shows a white cell count of 8.6 with a hemoglobin 9.7 and a platelet count of 248. Sodium is at 135, potassium is at 4.7, BUN is 22 with a creatinine of 0.47. Serum bicarb is at 32. Calcium level is at 8.6. LFT shows a AST of 82, ALT of 140, alkaline phosphatase of 51. Albumin is at 2.8. On 04/28/2024, the patient is being seen for a follow-up. As mentioned earlier, the patient has end-stage COPD. I ended up extubating this patient to a BiPAP yesterday. Postextubation, the patient encountered some increased agitation and respiratory distress and the based on that the patient was placed on a BiPAP. This morning, the patient is on a BiPAP at a pressure of 16/5 with an FiO2 of 50%. She remains on Precedex at 1.4 mcg/kg/min and the patient has a sitter at the bedside. She is still having bursts of agitation and yelling. Otherwise, she is calm and comfortable. She remains on normal saline at rate of 65 cc an hour. Generated tidal volume on the BiPAP is 400 cc and sometimes more and the respirate is around 21. Repeated blood gases were done and the most recent blood gas showed a pH of 7.29 with a pCO2 of 66 and pO2 of 135 and this was an FiO2 of 50%. The follow-up chest x-ray from today shows COPD, some similar reticular opacities throughout the right lung, likely chronic fibrotic changes. Some atelectatic changes also seen in the left lung. The patient is arousable. She is overall weak. Her white cell count is at 9.9 with a hemoglobin 10.6 and a platelet count of 237. Sodium levels at 138, potassium is at 4.5, bicarbonate 34 BUN 31 creatinine 0.5. She remains on bronchodilators and steroids. Will add Perforomist and Pulmicort nebulized treatments twice a day. Keep the patient on IV Solu-Medrol. Keep the patient on IV Rocephin. Keep the patient on Keppra. Sedation is with Precedex. On 04/29/2024, the patient is intubated on mechanical ventilator. Because of ongoing agitation and restlessness and failure to comply with the BiPAP, the patient was intubated yesterday afternoon and placed back on mechanical ventilator. This morning, she is on assist-control mode with rate of 22, tidal volume of 350, FiO2 40% with a PEEP of 5. Blood gas showed pH of 7.34 with pCO2 59 and pO2 of 92. The patient is currently on propofol and the patient is calm and comfortable on propofol running at 50 mcg/kg/min. She is on normal saline at rate of 75 cc an hour. The patient will be started back on enteral feeding for nutritional support. The white cell count of 12 with a hemoglobin of 11 and a platelet count of 265. BUN is 26 with a creatinine of 0.4. Sodium levels at 143. A follow-up CAT scan of the brain was done and showed similar distribution of previously described lesion. The lesions appear to be less prominent compared to the previous CAT scan of the brain. No seizure activity. Objective - Vital Signs Vital signs: Vital Signs Temp 97.9 F 04/29/24 04:00 Pulse 109 H 04/29/24 06:30 Resp 11 L 04/29/24 06:30 BP 108/73 04/29/24 02:30 Pulse Ox 93 L 04/29/24 06:30 FiO2 40 04/29/24 08:50 Intake & Output 04/28/24 04/29/24 04/29/24 18:59 06:59 18:59 Intake Total 8506.912 4211.027 Output Total 560 470 Balance 503.684 786.027 Weight 60.7 kg 61 kg Intake: IV 931 936 .9 @ 10ml 45 Sodium Chloride 0.9% 1, 850 900 000 ml @ 75 mls/hr IV . [id number] [facility] Rx#:[id number] pressure bag 36 36 Intake, IV Titration 132.684 320.027 Amount Dexmedetomidine/0.9% NaCl 132.684 (Pmx) 400 mcg In Empty Bag 1 bag @ 0.2 MCG/KG/HR 3.085 mls/hr IV .Q24H [facility] Rx#:[id number] Norepinephrine 4 mg In 0 Sodium Chloride 0.9% 250 ml @ 0.03 MCG/KG/MIN 5. 185 mls/hr IV .Q24H [facility] Rx#:[id number] Norepinephrine 4 mg In 105.305 Sodium Chloride 0.9% 250 ml @ 0.03 MCG/KG/MIN 6. 938 mls/hr IV .Q24H [facility] Rx#:[id number] propofoL 1,000 mg In 214.722 Empty Bag 1 bag @ 40 MCG/ KG/MIN 14.568 mls/hr IV . [id number] [facility] Rx#:[id number] Output: Urine 560 470 Other: Voiding Method Indwelling Catheter Indwelling Catheter ABP, PAP, CO, CI - Last Documented Arterial Blood Pressure 136/64 - Exam Calm and comfortable, sedated on propofol,, comfortable on mechanical ventilator. Orogastric and orotracheal tube are both in place. HEENT examination is grossly unremarkable. Mucous membranes are moist. No oral lesions. Neck supple. Full range of motion. No adenopathy thyromegaly or neck vein distention. Cardiovascular examination reveals regular rhythm rate. S1-S2 normal. No S3 or S4. No discernible murmur noted. Lungs reveal scattered bilateral rhonchi and wheezes. Breath sounds are dimini shed. No crackles. Breath sounds are equal. The breath sounds are markedly diminished and the patient is prolongation of his exhalation phase of breathing and expiratory wheeze heard bilaterally. Abdomen soft bowel sounds are heard. No masses or tenderness. Extremities are intact. No cyanosis clubbing or edema. Skin is without rash or lesion. Neurologic is sedated on propofol - Labs CBC & Chem 7: 04/29/24 05:30 04/29/24 05:30 Labs: Abnormal Lab Results - Last 24 Hours (Table) 04/28/24 04/28/24 04/28/24 Range/Units 11:16 12:27 16:42 WBC (3.8-10.6) k/uL Hgb (11.4-16.0) gm/dL MCHC (31.0-37.0) g/dL Neutrophils # (1.3-7.7) k/uL Lymphocytes # (1.0-4.8) k/uL ABG pH 7.29 L 7.24 L (7.35-7.45) ABG pCO2 66 H 78 H* (35-45) mmHg ABG pO2 135 H 128 H (83-108) mmHg ABG HCO3 32 H 33 H (21-25) mmol/L ABG Total CO2 34 H 35 H (19-24) mmol/L ABG O2 Saturation 99.2 H 98.7 H (94-97) % Hemoglobin 10.6 L 11.3 L (11.4-16.0) gm/dL Carbon Dioxide (22-30) mmol/L BUN (7-17) mg/dL Creatinine (0.52-1.04) mg/dL Glucose (74-99) mg/dL POC Glucose (mg/dL) 138 H (70-110) mg/dL 02/21/25 02/21/25 02/21/25 Range/Units 18:15 18:20 23:20 WBC (3.8-10.6) k/uL Hgb (11.4-16.0) gm/dL MCHC (31.0-37.0) g/dL Neutrophils # (1.3-7.7) k/uL Lymphocytes # (1.0-4.8) k/uL ABG pH 7.28 L (7.35-7.45) ABG pCO2 66 H (35-45) mmHg ABG pO2 153 H (83-108) mmHg ABG HCO3 31 H (21-25) mmol/L ABG Total CO2 33 H (19-24) mmol/L ABG O2 Saturation 99.4 H (94-97) % Hemoglobin 11.3 L (11.4-16.0) gm/dL Carbon Dioxide (22-30) mmol/L BUN (7-17) mg/dL Creatinine (0.52-1.04) mg/dL Glucose (74-99) mg/dL POC Glucose (mg/dL) 136 H 117 H (70-110) mg/dL 04/29/24 04/29/24 04/29/24 Range/Units 05:25 05:30 05:30 WBC 12.2 H (3.8-10.6) k/uL Hgb 11.1 L (11.4-16.0) gm/dL MCHC 30.0 L (31.0-37.0) g/dL Neutrophils # 11.1 H (1.3-7.7) k/uL Lymphocytes # 0.3 L (1.0-4.8) k/uL ABG pH (7.35-7.45) ABG pCO2 (35-45) mmHg ABG pO2 (83-108) mmHg ABG HCO3 (21-25) mmol/L ABG Total CO2 (19-24) mmol/L ABG O2 Saturation (94-97) % Hemoglobin (11.4-16.0) gm/dL Carbon Dioxide 31 H (22-30) mmol/L BUN 26 H (7-17) mg/dL Creatinine 0.49 L (0.52-1.04) mg/dL Glucose 114 H (74-99) mg/dL POC Glucose (mg/dL) 124 H (70-110) mg/dL 04/29/24 Range/Units 05:51 WBC (3.8-10.6) k/uL Hgb (11.4-16.0) gm/dL MCHC (31.0-37.0) g/dL Neutrophils # (1.3-7.7) k/uL Lymphocytes # (1.0-4.8) k/uL ABG pH 7.34 L (7.35-7.45) ABG pCO2 59 H (35-45) mmHg ABG pO2 (83-108) mmHg ABG HCO3 31 H (21-25) mmol/L ABG Total CO2 33 H (19-24) mmol/L ABG O2 Saturation 97.4 H (94-97) % Hemoglobin 11.0 L (11.4-16.0) gm/dL Carbon Dioxide (22-30) mmol/L BUN (7-17) mg/dL Creatinine (0.52-1.04) mg/dL Glucose (74-99) mg/dL POC Glucose (mg/dL) (70-110) mg/dL Microbiology - Last 24 Hours (Table) 04/23/24 11:50 Blood Culture - Final Blood Assessment and Plan Plan: Acute hypoxemic respiratory failure, secondary to COPD exacerbation. CT of the chest was noted and there is no evidence of any airspace disease or consolidation. No suspicious lung nodules or lesions. No significant mediastinal lymphadenopathy. The patient has moderate to severe emphysematous changes and she has evidence of endobronchial valve insertion in the left upper lobe that was done in outside facility. She has some atelectatic changes in the left upper lobe medially. No evidence of any airspace disease or pneumonia. Viral screen has been negative. The patient was extubated to BiPAP on 04/27/2024 to a BiPAP. She lasted for a total of 24 hours. She had to be reintubated as she continued to fail BiPAP therapy because of ongoing shortness of breath and ongoing restlessness and agitation. She was reintubated on 04/28/2023. Advanced COPD with diffuse emphysematous changes and possible previous endobronchial valve insertion, details are not known. Hypotension, post intubation. Echocardiogram shows a preserved LV function with an ejection fraction of 55%. The hypotension is believed to be related to the sedation as the patient is currently on a combination of fentanyl drip and propofol drip. She remains on low-dose norepinephrine. Vasopressin has been discontinued. Previous history of a postinflammatory scar in the right upper lobe and a previous PET/CT that was done back in 2020 showed no significant metabolic activity Altered mentation with evidence of multiple lesions in the brain without any vasogenic edema. No mass effect. Those lesions are measuring 11 to 12 mm in size in the right frontal and left frontal and another 1 posteriorly. Obviously, metastatic disease is of a concern. The patient is currently on Precedex. She is arousable and she is moving all 4 extremities. No seizure activity and the patient remains on Keppra. Repeat CAT scan of the brain showed that the lesions are less prominent. Infectious etiologies are considered to be less likely. Prior history of heavy tobacco use. Plan: Keep the patient on propofol Continue vent support Will continue bronchodilators Continue Perforomist and Pulmicort nebulized treatments twice a day IV Solu-Medrol 60 mg every 6 hours. IV Rocephin as empiric antibiotic coverage. Sputum cultures, positive for Kaitlin albicans EEG showed no evidence of any seizure activity, the patient is currently on Keppra Repeat CAT scan of the brain was noted. Will check cryptococcal urine antigen. Will check toxoplasma antibodies IV fluids with normal saline at rate of 75 cc an hour No pressors for now Obtain a CAT scan of the abdomen and pelvis was negative for any malignancy. Condition is critical and prognosis is poor. I do not think the patient will be able to extubate in the future. Will need to talk to the family about goals of treatment, this will be either end-of-life care or ongoing vent support through a tracheostomy. Will continue to follow make further recommendations based on her progress. This evaluation was done in 35 minutes. Time with Patient: Greater than 30
--- NOTE | 2024-04-29 15:02 | P.PN ---
Subjective Progress Note Date: 04/29/24 Spring Burdick, is a 63-year-old female patient of Dr. Gibbs who presented to [facility] emergency room with a chief complaint of She was evaluated in the emergency room vital examination on presentation revealed a temperature of 95.5 pulse 114 respiration 24 blood pressure 88/65 pulse ox 98% on 4 L nasal cannula Laboratory data revealed a white blood count of 8.5 hemoglobin 11.2 platelet count 261 D-dimer 1.74 sodium 135 potassium 3.9 BUN 9 creatinine 0.42 glucose 144 troponin 0.012 influenza A and B RSV and COVID PCR are all negative Testing in the emergency room revealed chest x-ray done in the emergency room revealed left-sided airspace opacities suggestive of pneumonia, CT scan of the brain revealed scattered areas of tavera-white matter vasogenic edema with possible masses in the right frontal lobe and left posterior frontal lobe and right occipital parietal regions finding concerning for metastatic disease. During her stay in the emergency room patient had hypotension, she was resuscitated with IV fluid, however her condition continued to worsen, she became unresponsive, she was intubated sedated and admitted to intensive care unit, he was started on IV steroid. Pulmonary and neurology consultation were requested. On 04/25/2024 patient remains in the ICU on mechanical ventilation. Patient also currently on Levophed for pressure support. Per nursing staff patient requiring increased amounts of sedation. Neurology and critical care services are following will consult oncology services due to concerns of metastatic lesions in brain On 04/26/2024 patient was seen and examined in the ICU she is intubated sedated maintained on mechanical ventilation, her vent settings are assist-control rate 22 tidal volume 350 FiO2 40% and PEEP of 5 vital exam reveals a temperature of 98 pulse 78 respiration 22 blood pressure 98/53 pulse ox 99% on FiO2 40% white blood count 12.3 hemoglobin 10.6 platelet count 266 arterial blood gas revealed pH 7.24 pCO2 70 pO2 107 BUN 18 creatinine 0.43. Case was discussed in details with Dr. Morton today On 04/27/2024 patient remains in the ICU intubated and sedated on mechanical ventilation. Patient remains on propofol and fentanyl. Per nursing staff plans for possible extubation today per critical care services. Oncology services are also following for workup. Patient remains on small 1 to Levophed for pressure support On 04/28/2024 patient remains in the ICU. Patient was extubated yesterday to BiPAP. Patient remains confused and on Precedex. leather cleaner at bedside. Neurology services recommending MRI of the brain but unable to do at this time due to BiPAP and increased confusion. Neurology, critical care and oncology services are all following On 04/29/2024 patient was seen and examined in the ICU she is intubated sedated maintained on mechanical ventilation, yesterday patient was extubated however she was having agitation, and failure to comply with the BiPAP, she was reintubated yesterday afternoon, and placed on mechanical ventilation, currently she is on assist-control mode rate 22 tidal volume 350 FiO2 40% with a PEEP of 5. She underwent CT scan of the brain which showed again multiple brain lesions. Dr. Osman Neurologist evaluated the patient again, and his recommendation is to transfer patient to a tertiary care facility, for further evaluation and treatment of her brain lesions. Objective - Vital Signs Vital signs: Vital Signs Temp 98.3 F 04/29/24 12:00 Pulse 101 H 04/29/24 14:00 Resp 22 04/29/24 14:00 BP 93/61 04/29/24 14:00 Pulse Ox 99 04/29/24 14:00 FiO2 40 04/29/24 12:23 Intake & Output 04/28/24 04/29/24 04/29/24 18:59 06:59 18:59 Intake Total 0956.261 6209.027 826 Output Total 560 470 380 Balance 503.684 786.027 446 Weight 60.7 kg 61 kg 61 kg Intake: IV 931 936 596 .9 @ 10ml 45 Sodium Chloride 0.9% 1, 850 900 525 000 ml @ 75 mls/hr IV . [id number] BINA Rx#:[id number] cefTRIAXone 2 gm In 50 Sodium Chloride 0.9% 50 ml @ 100 mls/hr IVPB Q24HR BINA Rx#:[id number] pressure bag 36 36 21 Intake, IV Titration 132.684 320.027 100 Amount Dexmedetomidine/0.9% NaCl 132.684 (Pmx) 400 mcg In Empty Bag 1 bag @ 0.2 MCG/KG/HR 3.085 mls/hr IV .Q24H BINA Rx#:[id number] Norepinephrine 4 mg In 0 Sodium Chloride 0.9% 250 ml @ 0.03 MCG/KG/MIN 5. 185 mls/hr IV .Q24H BINA Rx#:[id number] Norepinephrine 4 mg In 105.305 Sodium Chloride 0.9% 250 ml @ 0.03 MCG/KG/MIN 6. 938 mls/hr IV .Q24H BINA Rx#:[id number] propofoL 1,000 mg In 214.722 100 Empty Bag 1 bag @ 40 MCG/ KG/MIN 14.568 mls/hr IV . Q6H52M BINA Rx#:[id number] Tube Feeding 100 Other 30 Output: Urine 560 470 380 Other: Voiding Method Indwelling Catheter Indwelling Catheter Indwelling Catheter ABP, PAP, CO, CI - Last Documented Arterial Blood Pressure 119/62 - Exam Patient is intubated sedated maintained on mechanical ventilation HEENT head normocephalic and atraumatic Neck is supple no JVD no goiter no lymphadenopathy Chest exam reveals a scattered crackles bilaterally no wheezing Cardiac exam reveals regular heart sounds no gallops no murmurs Abdomen is soft nontender no organomegaly Extremity exam reveals no edema no cyanosis or clubbing - Labs CBC & Chem 7: 04/29/24 05:30 04/29/24 05:30 Labs: Abnormal Lab Results - Last 24 Hours (Table) 04/28/24 04/28/24 04/28/24 Range/Units 16:42 18:15 18:20 WBC (3.8-10.6) k/uL Hgb (11.4-16.0) gm/dL MCHC (31.0-37.0) g/dL Neutrophils # (1.3-7.7) k/uL Lymphocytes # (1.0-4.8) k/uL ABG pH 7.24 L 7.28 L (7.35-7.45) ABG pCO2 78 H* 66 H (35-45) mmHg ABG pO2 128 H 153 H (83-108) mmHg ABG HCO3 33 H 31 H (21-25) mmol/L ABG Total CO2 35 H 33 H (19-24) mmol/L ABG O2 Saturation 98.7 H 99.4 H (94-97) % Hemoglobin 11.3 L 11.3 L (11.4-16.0) gm/dL Carbon Dioxide (22-30) mmol/L BUN (7-17) mg/dL Creatinine (0.52-1.04) mg/dL Glucose (74-99) mg/dL POC Glucose (mg/dL) 136 H (70-110) mg/dL 04/28/24 04/29/24 04/29/24 Range/Units 23:20 05:25 05:30 WBC 12.2 H (3.8-10.6) k/uL Hgb 11.1 L (11.4-16.0) gm/dL MCHC 30.0 L (31.0-37.0) g/dL Neutrophils # 11.1 H (1.3-7.7) k/uL Lymphocytes # 0.3 L (1.0-4.8) k/uL ABG pH (7.35-7.45) ABG pCO2 (35-45) mmHg ABG pO2 (83-108) mmHg ABG HCO3 (21-25) mmol/L ABG Total CO2 (19-24) mmol/L ABG O2 Saturation (94-97) % Hemoglobin (11.4-16.0) gm/dL Carbon Dioxide (22-30) mmol/L BUN (7-17) mg/dL Creatinine (0.52-1.04) mg/dL Glucose (74-99) mg/dL POC Glucose (mg/dL) 117 H 124 H (70-110) mg/dL 04/29/24 04/29/24 04/29/24 Range/Units 05:30 05:51 12:00 WBC (3.8-10.6) k/uL Hgb (11.4-16.0) gm/dL MCHC (31.0-37.0) g/dL Neutrophils # (1.3-7.7) k/uL Lymphocytes # (1.0-4.8) k/uL ABG pH 7.34 L (7.35-7.45) ABG pCO2 59 H (35-45) mmHg ABG pO2 (83-108) mmHg ABG HCO3 31 H (21-25) mmol/L ABG Total CO2 33 H (19-24) mmol/L ABG O2 Saturation 97.4 H (94-97) % Hemoglobin 11.0 L (11.4-16.0) gm/dL Carbon Dioxide 31 H (22-30) mmol/L BUN 26 H (7-17) mg/dL Creatinine 0.49 L (0.52-1.04) mg/dL Glucose 114 H (74-99) mg/dL POC Glucose (mg/dL) 135 H (70-110) mg/dL Microbiology - Last 24 Hours (Table) 04/23/24 11:50 Blood Culture - Final Blood Assessment and Plan Plan: Acute hypoxic respiratory failure Acute exacerbation of chronic obstructive pulmonary disease Hypotension with hypovolemic shock on presentation Altered mentation on presentation Evidence of metastatic brain lesions Patient extubated 04/27/2024 She was started on IV fluid and IV antibiotics Pulmonary and neurology consultation requested Prognosis is guarded will follow closely
--- NOTE | 2024-04-29 15:04 | P.PN ---
Progress Note - Text Progress Note Date: 04/29/24 On 04/29/2024 patient was seen and examined in the ICU she is intubated sedated maintained on mechanical ventilation Dr. Ponce Osman neurologist evaluated patient again and reviewed her repeat CT scan of the brain. He is recommending transferring patient to a tertiary care facility, for a brain MRI and evaluation by neurosurgery I called [facility] transfer line and gave patient information's, I am waiting for a call from physician for transfer.
[2024-04-29 18:17] LABS: Glucose,Whole Blood 147 mg/dL (70-110)
[2024-04-29 19:06] VITALS: BP 109/69
[2024-04-29 20:54] VITALS: TEMP 98.1
[2024-04-29 21:08] VITALS: PULSE 123; RESP 22
--- NOTE | 2024-04-30 11:00 | P.PN ---
Subjective Progress Note Date: 04/29/24 Patient was seen for a follow-up. Patient was reintubated last night. Patient on sedation at high-dose propofol. Examination limited. Family mentions that patient has smoked one and half pack per day for 20-30 years. Quit in 2019. She is on home oxygen at 3.5 L per minute. Objective - Vital Signs Vital signs: Vital Signs Temp 98.3 F 04/29/24 12:00 Pulse 117 H 04/29/24 16:04 Resp 22 04/29/24 15:00 BP 102/71 04/29/24 15:00 Pulse Ox 99 04/29/24 15:00 FiO2 40 04/29/24 16:07 Intake & Output 04/28/24 04/29/24 04/29/24 18:59 06:59 18:59 Intake Total 6074.807 8301.027 924 Output Total 560 470 455 Balance 503.684 786.027 469 Weight 60.7 kg 61 kg 61 kg Intake: IV 931 936 674 .9 @ 10ml 45 Sodium Chloride 0.9% 1, 850 900 600 000 ml @ 75 mls/hr IV . [id number] BINA Rx#:[id number] cefTRIAXone 2 gm In 50 Sodium Chloride 0.9% 50 ml @ 100 mls/hr IVPB Q24HR BINA Rx#:[id number] pressure bag 36 36 24 Intake, IV Titration 132.684 320.027 100 Amount Dexmedetomidine/0.9% NaCl 132.684 (Pmx) 400 mcg In Empty Bag 1 bag @ 0.2 MCG/KG/HR 3.085 mls/hr IV .Q24H BINA Rx#:[id number] Norepinephrine 4 mg In 0 Sodium Chloride 0.9% 250 ml @ 0.03 MCG/KG/MIN 5. 185 mls/hr IV .Q24H BINA Rx#:[id number] Norepinephrine 4 mg In 105.305 Sodium Chloride 0.9% 250 ml @ 0.03 MCG/KG/MIN 6. 938 mls/hr IV .Q24H BINA Rx#:[id number] propofoL 1,000 mg In 214.722 100 Empty Bag 1 bag @ 40 MCG/ KG/MIN 14.568 mls/hr IV . Q6H52M BINA Rx#:[id number] Tube Feeding 120 Other 30 Output: Urine 560 470 455 Other: Voiding Method Indwelling Catheter Indwelling Catheter Indwelling Catheter ABP, PAP, CO, CI - Last Documented Arterial Blood Pressure 128/67 - Exam Examination limited because of patient being sedated on high-dose propofol. Patient is intubated. - Labs CBC & Chem 7: 04/29/24 05:30 04/29/24 05:30 Labs: Abnormal Lab Results - Last 24 Hours (Table) 04/28/24 04/28/24 04/28/24 Range/Units 16:42 18:15 18:20 WBC (3.8-10.6) k/uL Hgb (11.4-16.0) gm/dL MCHC (31.0-37.0) g/dL Neutrophils # (1.3-7.7) k/uL Lymphocytes # (1.0-4.8) k/uL ABG pH 7.24 L 7.28 L (7.35-7.45) ABG pCO2 78 H* 66 H (35-45) mmHg ABG pO2 128 H 153 H (83-108) mmHg ABG HCO3 33 H 31 H (21-25) mmol/L ABG Total CO2 35 H 33 H (19-24) mmol/L ABG O2 Saturation 98.7 H 99.4 H (94-97) % Hemoglobin 11.3 L 11.3 L (11.4-16.0) gm/dL Carbon Dioxide (22-30) mmol/L BUN (7-17) mg/dL Creatinine (0.52-1.04) mg/dL Glucose (74-99) mg/dL POC Glucose (mg/dL) 136 H (70-110) mg/dL 04/28/24 04/29/24 04/29/24 Range/Units 23:20 05:25 05:30 WBC 12.2 H (3.8-10.6) k/uL Hgb 11.1 L (11.4-16.0) gm/dL MCHC 30.0 L (31.0-37.0) g/dL Neutrophils # 11.1 H (1.3-7.7) k/uL Lymphocytes # 0.3 L (1.0-4.8) k/uL ABG pH (7.35-7.45) ABG pCO2 (35-45) mmHg ABG pO2 (83-108) mmHg ABG HCO3 (21-25) mmol/L ABG Total CO2 (19-24) mmol/L ABG O2 Saturation (94-97) % Hemoglobin (11.4-16.0) gm/dL Carbon Dioxide (22-30) mmol/L BUN (7-17) mg/dL Creatinine (0.52-1.04) mg/dL Glucose (74-99) mg/dL POC Glucose (mg/dL) 117 H 124 H (70-110) mg/dL 04/29/24 04/29/24 04/29/24 Range/Units 05:30 05:51 12:00 WBC (3.8-10.6) k/uL Hgb (11.4-16.0) gm/dL MCHC (31.0-37.0) g/dL Neutrophils # (1.3-7.7) k/uL Lymphocytes # (1.0-4.8) k/uL ABG pH 7.34 L (7.35-7.45) ABG pCO2 59 H (35-45) mmHg ABG pO2 (83-108) mmHg ABG HCO3 31 H (21-25) mmol/L ABG Total CO2 33 H (19-24) mmol/L ABG O2 Saturation 97.4 H (94-97) % Hemoglobin 11.0 L (11.4-16.0) gm/dL Carbon Dioxide 31 H (22-30) mmol/L BUN 26 H (7-17) mg/dL Creatinine 0.49 L (0.52-1.04) mg/dL Glucose 114 H (74-99) mg/dL POC Glucose (mg/dL) 135 H (70-110) mg/dL Microbiology - Last 24 Hours (Table) 04/23/24 11:50 Blood Culture - Final Blood Assessment and Plan Assessment: * Abnormal CT head with evidence of at least 3, perhaps 4 contrast-enhancing rounded lesions at the tavera-white junction. Suspect metastatic disease. So far no evidence of primary. * Status post extubation 04/27/2024 * Metabolic encephalopathy * COPD exacerbation * Elevated pCO2 60 on arrival. * Hyponatremia * Hypotension, improved. Patient on norepinephrine and vasopressin * History of tobacco use Plan: * Patient not able to tolerate MRI because of her breathing difficulty. * Repeat CT head performed today revealed similar distribution of previously seen lesions. The lesions appear less prominent compared to prior. Recommend continued follow-up. I personally reviewed CT head and on my review, it appears rounded lesions appear to be more prominent as compared to the previous CT head. The vasogenic edema has decreased from steroids, but the lesions has become more prominent with some hyperintensity, concerning for mild hemorrhage. There are 4 confirmed lesions in the cerebral cortex at the tavera-white junction in the centrum semiovale, and 1 possible new lesion in the left cerebellum. Patient needs definite MRI of the brain with and without contrast as soon as possible. Unfortunately patient is now again intubated, and [facility] does not have capability of performing MRI on intubated patient. Patient needs to be transferred to higher level of care as soon as possible. I discussed with primary physician, and transfer process has been initiated. Also discussed with blind slat stapling machine operator Dr Oakley, who believes patient has independent poor prognostic factor from pulmonary standpoint as well besides the cerebral lesions. * EEG was abnormal due to background slowing of mild to moderate degree. This is suggestive of generalized cerebral dysfunction as can be seen with toxic metabolic encephalopathy or related to diffuse structural brain abnormality, or medication effect. Clinical correlation is recommended. No definitive epileptiform activity was seen. * CT of abdomen pelvis revealed mild sludge within the gallbladder. Mild ascites and moderate to marked anasarca of the abdominal and pelvic soft tissues. No mass. * Patient had some unclear spell of unresponsiveness. We will empirically start Keppra 500 mg twice a day. * Treatment of underlying cardiopulmonary condition as per IM and critical care. * Recommended MRI of the brain with and without contrast. * Discussed with oncology team. Patient currently on methylprednisolone 60 mg IV every 6 hours. * Patient on ceftriaxone 2 g every 24 hours.
[2024-04-30 23:06] LABS: Cryptosporidium Antigen Negative (Negative)
[2024-05-01 04:52] LABS: Toxoplasma Antibody (IgG) <3.0 IU/mL (<7.2); Toxoplasma Antibody (IgM) <3.0 AU/mL (<8.0)
== END 2024-04-29 22:25 | disposition short-term general hospital (02) | DRG 208 ==
LOC: EC 11:08 → 2SICU 16:00
PROVIDERS: ADMIT Internal Medicine; ATTEND Internal Medicine
PROC: 06HY33Z Insertion of Infusion Device into Lower Vein, Percutaneous Approach (ICD-10-PCS; principal; 2024-04-23)
PROC: 5A1945Z Respiratory Ventilation, 24-96 Consecutive Hours (ICD-10-PCS; principal; 2024-04-23)
PROC: 0BH17EZ Insertion of Endotracheal Airway into Trachea, Via Natural or Artificial Opening (ICD-10-PCS; principal; 2024-04-23)
PROC: 4A133B1 Monitoring of Arterial Pressure, Peripheral, Percutaneous Approach (ICD-10-PCS; 2024-04-24)
PROC: 4A133J1 Monitoring of Arterial Pulse, Peripheral, Percutaneous Approach (ICD-10-PCS; 2024-04-24)
PROC: 03HY32Z Insertion of Monitoring Device into Upper Artery, Percutaneous Approach (ICD-10-PCS; 2024-04-24)
PROC: 3E043XZ Introduction of Vasopressor into Central Vein, Percutaneous Approach (ICD-10-PCS; 2024-04-24)
PROC: 5A09457 Assistance with Respiratory Ventilation, 24-96 Consecutive Hours, Continuous Positive Airway Pressure (ICD-10-PCS; 2024-04-27)
PROC: 0BH17EZ Insertion of Endotracheal Airway into Trachea, Via Natural or Artificial Opening (ICD-10-PCS; 2024-04-28)
PROC: 4A133B1 Monitoring of Arterial Pressure, Peripheral, Percutaneous Approach (ICD-10-PCS; 2024-04-28)
PROC: 03HY32Z Insertion of Monitoring Device into Upper Artery, Percutaneous Approach (ICD-10-PCS; 2024-04-28)
PROC: 5A1945Z Respiratory Ventilation, 24-96 Consecutive Hours (ICD-10-PCS; 2024-04-28)
PROC: 4A133J1 Monitoring of Arterial Pulse, Peripheral, Percutaneous Approach (ICD-10-PCS; 2024-04-28)
DX: J96.01 Acute respiratory failure with hypoxia (principal); R57.1 Hypovolemic shock; G93.41 Metabolic encephalopathy; G93.6 Cerebral edema; C79.31 Secondary malignant neoplasm of brain; J44.1 Chronic obstructive pulmonary disease with (acute) exacerbation; R64 Cachexia; I27.20 Pulmonary hypertension, unspecified; D64.9 Anemia, unspecified; E87.1 Hypo-osmolality and hyponatremia; J96.02 Acute respiratory failure with hypercapnia; J43.9 Emphysema, unspecified; Z99.81 Dependence on supplemental oxygen; J11.1 Influenza due to unidentified influenza virus with other respiratory manifestations; Z87.891 Personal history of nicotine dependence; W06.XXXA Fall from bed, initial encounter; Z79.899 Other long term (current) drug therapy; Z68.22 Body mass index [BMI] 22.0-22.9, adult; Z79.52 Long term (current) use of systemic steroids; Z71.3 Dietary counseling and surveillance
CPT/HCPCS: 31500; 36415; 36556; 36600; 70450; 71045; 71275; 74177; 80048; 80053; 82805; 83036; 83605; 83735; 83880; 84145; 84484; 85025; 85379; 85610; 85730; 86644; 86645; 86777; 86778; 87040; 87070; 87205; 87328; 87529; 87636; 93005; 93306; 94002; 94003; 94640; 94660; 95822; 96361; 96365; 96366; 96375; 99291